=== PATIENT | male | born 1980 | race Caucasian/White ===

== ENCOUNTER 2016-07-31 12:50 | Inpatient (IN) | payer OTHER ==
--- NOTE | 2016-07-31 13:24 | ED ---
General Adult HPI - General Chief complaint: Chest Pain Stated complaint: Abnormal labs Time Seen by Provider: 07/31/16 12:58 Source: patient, EMS, RN notes reviewed Mode of arrival: EMS Limitations: no limitations - History of Present Illness Initial comments: Chief complaint and history of present illness this is a 36-year-old male has been sent here from [facility] because of elevated labs. The patient presented to the facility because of some shortness of breath. Also reports it's difficult to walk since he developed significant edema. The patient and family have lived in several places of the past several months. Patient does have the need for hemodialysis was last done 2 days ago at [facility]. Labs at the other facility found BUN to be 78 creatinine 5.8, potassium level V.7, blood glucose 170, CO2 23, BNP over 35,000 , troponin 0.39. Hemoglobin 7.6 hematocrit 23. Chest x-ray report suggests CHF. - Related Data Allergies Allergy/AdvReac Type Severity Reaction Status Date / Time insulin lispro [From Humalog] Allergy Swelling Verified 07/31/16 12:55 tramadol Allergy Swelling Verified 07/31/16 12:55 Review of Systems ROS Statement: Those systems with pertinent positive or pertinent negative responses have been documented in the HPI. Review of systems. Patient reports he went to the other hospital because of slight shortness of breath. No chest pain. He does have peripheral edema. He needs dialysis 3 times weekly the last time was done and was 2 days ago. He reports significantly increased edema to his legs which makes it difficult to ambulate. No headache. Patient has an AV fistula left wrist; all systems reviewed Past medical problems significant for hypothyroidism, insulin-dependent diabetes mellitus, hypertension, hemodialysis, CHF, no surgeries per patient. Family history mother had colon cancer brother right kidney failure. Patient has ALLERGIES to tramadol and Humalog. He does smoke 5 cigarettes per day encouraged to stop. Denies alcohol use. ROS Other: All systems not noted in ROS Statement are negative. Past Medical History Past Medical History: Diabetes Mellitus, Hypertension, Renal Disease Additional Past Medical History / Comment(s): Dialysis T, Th, Sat History of Any Multi-Drug Resistant Organisms: None Reported Past Surgical History: Orthopedic Surgery Past Psychological History: No Psychological Hx Reported Smoking Status: Current every day smoker Past Alcohol Use History: None Reported Past Drug Use History: Marijuana General Exam - General Exam Comments Initial Comments: General: The patient is awake and alert, in no distress, and does not appear acutely ill. Transferred here from [facility] because of mildly elevated troponin, elevated BNP, peripheral edema, and hemodialysis needs. Vital signs show temperature 98.1 pulse 83 respiratory rate 18 pulse ox 98% room air blood pressure 150/87 Eye: Pupils are equal, round and reactive to light, extra-ocular movements are intact ; there is normal conjunctiva bilaterally. No signs of icterus. Ears, nose, mouth and throat: There are moist mucous membranes and no oral lesions. Neck: The neck is supple, there is no tenderness Cardiovascular: There is a regular rate and rhythm. No murmur, rub or gallop is appreciated. Respiratory: Lungs are clear to auscultation, respirations are non-labored, breath sounds are equal. No wheezes, stridor, rales, or rhonchi. Gastrointestinal: Soft, non-distended, non-tender abdomen without masses or organomegaly noted. There is no rebound or guarding present. No CVA tenderness. Bowel sounds are unremarkable. Back: There is no tenderness to palpation in the midline. There is no obvious deformity. No rashes noted. Musculoskeletal: Difficulty walking secondary to, pitting edema to the knees. Ultrasounds done and reviewed [facility] were negative for DVTs to both lower extremities just performed this morning. Neurological: CN II-XII intact, There are no obvious motor or sensory deficits. Coordination appears grossly intact. Speech is normal. Skin: Skin is warm and dry and no rashes or lesions are noted. Limitations: no limitations Course Vital Signs 07/31/16 07/31/16 07/31/16 12:52 13:30 14:00 Temperature 98.1 F Pulse Rate 83 80 82 Respiratory 18 18 18 Rate Blood Pressure 150/87 145/79 142/74 O2 Sat by Pulse 98 80 L 98 Oximetry EKG Findings - EKG Comments: EKG Findings:: EKG was done and reviewed at 1442 showing normal sinus rhythm with left atrial enlargement with nonspecific ST-T wave changes. With prolonged QT. Rate 81 when necessary was 134 QRS [address] Camacho Medical Decision Making - Medical Decision Making Medical decision-making. Patient's white count 7.2 hemoglobin 7.5 hematocrit 23.6. Glucose 288, BUN 79 creatinine 5.59 and potassium 6.3. CK is only 77 but the MB fraction is 4.53 and troponin 0.053. EKG does not show any acute ST elevation. No significant ischemic changes either. Elevated MB and troponin may be related to the patient's chronic renal problems. Chest x-ray was done and reviewed by radiologist his impression is; posterior infiltrate with small posterior pleural effusions. Correlate for pneumonia. As read by Dr. Mak. The patient be admitted to hospitalist on-call, Dr. Anderson. With consultation from Dr. Barrett health advocate. - Lab Data Result diagrams: 07/31/16 13:33 Lab Results 07/31/16 Range/Units 13:33 WBC 7.2 (3.8-10.6) k/uL RBC 2.43 L (4.30-5.90) m/uL Hgb 7.5 L (13.0-17.5) gm/dL Hct 23.6 L (39.0-53.0) % MCV 97.0 (80.0-100.0) fL MCH 30.7 (25.0-35.0) pg MCHC 31.6 (31.0-37.0) g/dL RDW 15.9 H (11.5-15.5) % Plt Count 235 (150-450) k/uL Neutrophils % 77 % Lymphocytes % 7 % Monocytes % 7 % Eosinophils % 5 % Basophils % 1 % Neutrophils # 5.5 (1.3-7.7) k/uL Lymphocytes # 0.5 L (1.0-4.8) k/uL Monocytes # 0.5 (0-1.0) k/uL Eosinophils # 0.3 (0-0.7) k/uL Basophils # 0.1 (0-0.2) k/uL Macrocytosis Slight Disposition Clinical Impression: Chronic kidney disease with end stage renal failure on dialysis, Elevated troponin Disposition: ADMITTED IP TO THIS HOSP Condition: Serious Referrals: Adal Donis [Primary Care Provider] - 1-2 days
[2016-07-31 13:44] LABS: Basophils # (A) 0.1 k/uL (0-0.2); Basophils % (A) 1 %; CH 30.8; CHCM 31.9; Eosinophils # (A) 0.3 k/uL (0-0.7); Eosinophils % (A) 5 %; HCT 23.6 % (39.0-53.0); HDW 2.43; HGB 7.5 gm/dL (13.0-17.5); Luc # (Auto) 0.23; Luc % (Auto) 3; Lymphocytes # (A) 0.5 k/uL (1.0-4.8); Lymphocytes % (A) 7 %; MCH 30.7 pg (25.0-35.0); MCHC 31.6 g/dL (31.0-37.0); Macrocytosis Slight; Mean Platelet Volume 7.4; Monocytes # (A) 0.5 k/uL (0-1.0); Monocytes % (A) 7 %; Neutrophils # (A) 5.5 k/uL (1.3-7.7); Neutrophils % (A) 77 %; RBC 2.43 m/uL (4.30-5.90); RDW 15.9 % (11.5-15.5); WBC 7.2 k/uL (3.8-10.6); WBC (Perox) 7.22
[2016-07-31 13:58] LABS: Calcium 8.1 mg/dL (8.4-10.2); Total Bilirubin 0.7 mg/dL (0.2-1.3); Total Protein 5.3 g/dL (6.3-8.2)
--- NOTE | 2016-07-31 14:07 | XR ---
EXAMINATION TYPE: XR chest 2V DATE OF EXAM: 07/31/2016 1:53 PM COMPARISON: NONE INDICATION: Pain TECHNIQUE: Single frontal view of the chest is obtained. FINDINGS: The heart size is normal. The pulmonary vasculature is normal. There is a retrocardiac infiltrate. Small posterior pleural fluid collection appears to be present, l ikely on the left IMPRESSION: 1. Posterior infiltrate with small posterior pleural effusion. Correlate for pneumonia.
[2016-07-31 14:37] LABS: Potassium 6.3 mmol/L (3.5-5.1)
[2016-07-31 14:49] LABS: Creatine Kinase MB 4.3 ng/mL (0.0-2.4); Troponin I 0.053 ng/mL (0.000-0.034)
[2016-07-31] MEDS ORDERED: NALOXONE 0.4 MG/ML 1 ML VIAL IV PRN (15:00)
[2016-07-31] MEDS ORDERED: SODIUM CHLORIDE 0.9% 1,000 ML IV SCH (15:00)
[2016-07-31] MEDS ORDERED: cefTRIAXone 1,000 MG in SODIUM CHLORIDE 0.9% 100 ML IVPB SCH (15:45)
[2016-07-31] MEDS ORDERED: AZITHROMYCIN 500 MG in SODIUM CHLORIDE 0.9% 250 ML IVPB SCH (16:45)
[2016-07-31] MEDS ORDERED: ALBUTEROL NEBULIZED 2.5 MG/3 ML INHALATION PRN (17:03)
[2016-07-31] MEDS ORDERED: BUMETANIDE 0.25 MG/ML 4 ML VIAL IVP STA (17:05)
[2016-07-31] MEDS ORDERED: INSULIN REGULAR 100 UNIT/ML VIAL IV ONE ×2 (17:09→21:30)
[2016-07-31 17:19] LABS: Glucose,Whole Blood 393 mg/dL (75-99)
[2016-07-31] MEDS: CARVEDILOL 12.5 MG TAB PO SCH (17:23)
[2016-07-31] MEDS ORDERED: INSULIN REGULAR 100 UNIT/ML VIAL SQ SCH (17:30)
--- NOTE | 2016-07-31 18:40 | US ---
EXAMINATION TYPE: US scrotum with doppler. Grayscale and color Doppler Duplex imaging performed of lynn fink scrotum. DATE OF EXAM: 07/31/2016 6:14 PM COMPARISON: NONE CLINICAL HISTORY: varicocele. Bilateral swelling in pain x 3 days. Patient states no injury. EXAM MEASUREMENTS: TESTICLES: Right Testicle: 2.9 x 2.3 x 2.3 cm Left Testicle: 2.8 x 2.2 x 2.1 cm EPIDIDYMIS HEAD: Right Epididymis: 1.5 x 1.1 x 1.0 cm Left Epididymis: 1.1 x 0.8 x 0.8 cm Doppler performed to assess for testicular vascularity; good bilateral color flow and waveforms are s een. There is no evidence of testicular torsion. Presence of hydroceles: no Presence of varicoceles: no No masses or lesions seen. Thickening seen surrounding both scrotal sacs. IMPRESSION: 1. Scrotal edema. 2. No Testicular torsion
[2016-07-31 20:25] LABS: Creatine Kinase MB 4.8 ng/mL (0.0-2.4); Troponin I 0.042 ng/mL (0.000-0.034)
[2016-07-31] MEDS ORDERED: INSULIN GLARGINE 100 UNIT/ML 10 ML VIAL SQ SCH ×2 (21:00)
[2016-07-31 21:11] LABS: Glucose,Whole Blood 470 mg/dL (75-99)
[2016-07-31] MEDS ORDERED: SODIUM POLYSTYRENE SULFONATE 15 GM/60 ML BOTTLE PO STA (21:17)
--- NOTE | 2016-07-31 21:23 | HP ---
DATE OF ADMISSION: 07/31/2016 This is a 36-year-old gentleman who is admitted to the hospital with complaints of progressive increasing swelling in his lower extremities and dyspnea over the last 2 to 3 days. Patient states that he has been on hemodialysis over the last year, and the reason for his end-stage renal disease is secondary to diabetes. Patient has been a type I diabetic for a long period of time. Patient apparently was in the [facility] where he used to receive dialysis Wednesday, Wednesday, Wednesday; underwent dialysis on Wednesday; states that he has been compliant. Today patient comes into the hospital with complaints of lower extremity edema, scrotal edema and difficulty in breathing. Patient's blood pressure initially was slightly elevated. At the time of my evaluation, patient was seen on the selective floor. States that his breathing is slightly improved. Denies having any headaches, blurry vision, fevers, chills, abdominal pain. Of note, patient also states that he was recently admitted to another facility and discharged a week ago for some concern about a scrotal infection, the other facility being [facility]. Patient was noted to have abnormal labs in the physical findings. Patient was admitted to the hospital. EKG did not reveal any abnormalities. There is a troponin leak that is noted. Patient denies having any chest pain. Chest x-ray does reveal pulmonary vascular congestion. ALLERGIES include: 1. INSULIN LISPRO. 2. TRAMADOL. REVIEW OF SYSTEMS: Fourteen-point review of system was done; none pertinent other than what was mentioned above. Past medical history includes: 1. Diabetes mellitus, type 1. 2. Hypertension. 3. ESRD. 4. Anemia of ESRD. Surgical history includes a fistula placement on the left wrist. SOCIAL HISTORY: Ongoing tobacco use. Social use of marijuana. No significant alcohol use is reported. Patient recently moved into the [facility] 2 days ago. FAMILY HISTORY: Denies any premature heart disease or strokes. Patient's home medications include: 1. Hydralazine. 2. Clonidine. 3. Norvasc. 4. Incruse Ellipta. 5. Zantac. 6. Minoxidil. 7. Cozaar 8. Synthroid. 9. Levaquin, which he was on for the scrotal infection. 10. Imdur. 11. Lantus. 12. [place]. 13. Feosol. 14. Coreg. 15. Bumex. 16. Aspirin. 17. Ventolin. Appropriate doses were reviewed and reconciled on admission. PHYSICAL EXAMINATION TODAY: VITAL SIGNS: Temperature 97.9, heart rate 83, respiratory rate 18, blood pressure 134/75. Saturating 98% on 2 L supplemental oxygen. GENERAL: Appears alert and oriented x3. Does not appear to be in respiratory distress. Neck is supple. No JVD. LUNGS: Crackles at the bases. Air movement is appreciated. No rhonchi or wheezing. HEART: S1, S2. Regular rate and rhythm. No murmurs appreciated. ABDOMEN: Soft, nontender. No organomegaly. EXTREMITIES: A palpable thrill on the left wrist consistent with AV fistula. GENITOURINARY: There is scrotal swelling, tender to palpation. LOWER EXTREMITIES: Two plus pitting edema noted. Cremasteric reflex was equivocal. NEURO: No focal motor or sensory deficits noted. Laboratory data include hemoglobin 7.5, hematocrit 23.6, white count 7.2, platelets 235. Sodium 129, potassium 6.3, chloride 96, bicarb 19. BUN 79, creatinine 5.59. Random glucose 393. Troponin peak of 0.053. Albumin ( ) 2.6. BNP of 94,800. ASSESSMENT AND PLAN: 1. Acute hypoxic respiratory failure secondary to fluid-overloaded state in a patient with end-stage renal disease. 2. Anemia of end-stage renal disease. 3. Scrotal cellulitis. 4. End-stage renal disease, on hemodialysis. 5. Hyponatremia, likely hypervolemic. 6. Hyperkalemia secondary to above. 7. [id number] metabolic acidosis. 8. Indeterminate troponin leak, likely due to the above-stated condition. EKG appears to be within normal limits. 9. Diabetes mellitus, type 1, poorly controlled. 10. Hypertension. PLAN: Medications were reconciled. Continue with current care. Patient will be given 2 mg IV Bumex. Will start the patient on Rocephin and Zithromax. On chest x-ray review, he does appear to have a retrocardiac infiltrate, which could also account for some difficulty in breathing. Patient's admitting complaints are vague, as the edema appears to be chronic, and clinical findings are not significantly convinced for just CHF at this time. White count is not elevated, which is likely secondary to patient being on Levaquin for his scrotal cellulitis as well. Patient will be started on DVT prophylaxis. Nephrology consultation will be obtained. Continue basal insulin at 18 units and regular insulin 10 t.i.d. with meals. A 10-unit IV push will also be given with the current hyperglycemic episode as well. Diabetic diet will be initiated. Will follow up.
[2016-07-31] MEDS: FAMOTIDINE 20 MG TAB PO SCH (22:20)
[2016-07-31] MEDS: HEPARIN SODIUM,PORCINE 5,000 UNIT/ML 1 ML VIAL SQ SCH (22:20)
[2016-07-31] MEDS: MINOXIDIL 2.5 MG TAB PO SCH (22:20)
[2016-07-31] MEDS: AZITHROMYCIN 250 MG TAB PO SCH (22:20)
[2016-07-31] MEDS: cloNIDine HCL 0.1 MG TAB PO SCH (22:21)
[2016-07-31 23:36] LABS: Glucose,Whole Blood 480 mg/dL (75-99)
[2016-07-31] MEDS ORDERED: INSULIN REGULAR BOLUS (FROM DRIP BAG) IV ONE (23:43)
[2016-07-31] MEDS ORDERED: INSULIN REGULAR 100 UNIT in SODIUM CHLORIDE 0.9% 100 ML IV SCH (23:45)
[2016-08-01] MEDS: HEPARIN SODIUM,PORCINE 5,000 UNIT/ML 1 ML VIAL SQ SCH ×4 (00:37→23:34)
[2016-08-01 01:08] LABS: Glucose,Whole Blood 422 mg/dL (75-99)
[2016-08-01 01:32] LABS: Glucose,Whole Blood 390 mg/dL (75-99)
[2016-08-01 02:04] LABS: Glucose,Whole Blood 336 mg/dL (75-99)
[2016-08-01 02:10] LABS: Creatine Kinase MB 5.4 ng/mL (0.0-2.4); Troponin I 0.037 ng/mL (0.000-0.034)
[2016-08-01 02:38] LABS: Glucose,Whole Blood 290 mg/dL (75-99)
[2016-08-01 03:10] LABS: Glucose,Whole Blood 256 mg/dL (75-99)
[2016-08-01 03:31] LABS: Glucose,Whole Blood 227 mg/dL (75-99)
[2016-08-01 06:00] LABS: Glucose,Whole Blood 69 mg/dL (75-99)
[2016-08-01 06:33] LABS: Glucose,Whole Blood 56 mg/dL (75-99)
[2016-08-01] MEDS ORDERED: DEXTROSE 50%-WATER 50 ML SYRINGE IVP ONE (06:55)
[2016-08-01] MEDS ORDERED: DEXTROSE 50%-WATER 50 ML SYRINGE IVP STA (06:56)
[2016-08-01] MEDS: CARVEDILOL 12.5 MG TAB PO SCH ×2 (06:57→21:55)
[2016-08-01] MEDS: LEVOTHYROXINE 75 MCG TAB PO SCH (06:58)
[2016-08-01 07:04] LABS: Glucose,Whole Blood 67 mg/dL (75-99)
[2016-08-01] MEDS ORDERED: MORPHINE SULFATE 2 MG/ML SYRINGE IVP PRN (07:05)
[2016-08-01 07:09] LABS: Basophils # (A) 0.1 k/uL (0-0.2); Basophils % (A) 1 %; CHCM 33.5; Eosinophils # (A) 0.3 k/uL (0-0.7); Eosinophils % (A) 4 %; HCT 22.8 % (39.0-53.0); HDW 2.53; HGB 7.7 gm/dL (13.0-17.5); Luc # (Auto) 0.29; Luc % (Auto) 4; Lymphocytes % (A) 15 %; MCH 31.2 pg (25.0-35.0); MCHC 33.5 g/dL (31.0-37.0); MCV 92.9 fL (80.0-100.0); Mean Platelet Volume 7.2; Monocytes # (A) 0.9 k/uL (0-1.0); Monocytes % (A) 13 %; Neutrophils # (A) 4.2 k/uL (1.3-7.7); Neutrophils % (A) 63 %; RBC 2.46 m/uL (4.30-5.90); RDW 15.8 % (11.5-15.5); WBC 6.7 k/uL (3.8-10.6); WBC (Perox) 6.83
[2016-08-01 07:31] LABS: Glucose,Whole Blood 107 mg/dL (75-99)
[2016-08-01 08:00] LABS: Manual Review Performed
[2016-08-01 08:06] LABS: Glucose,Whole Blood 81 mg/dL (75-99)
[2016-08-01 08:21] LABS: Calcium 8.2 mg/dL (8.4-10.2); Magnesium 1.7 mg/dL (1.6-2.3); Phosphorous 6.5 mg/dL (2.5-4.5); Potassium 5.1 mmol/L (3.5-5.1); Total Bilirubin 0.5 mg/dL (0.2-1.3); Total Protein 5.8 g/dL (6.3-8.2)
[2016-08-01 08:23] LABS: Creatine Kinase MB 6.1 ng/mL (0.0-2.4)
[2016-08-01 08:24] LABS: Troponin I 0.055 ng/mL (0.000-0.034)
[2016-08-01] MEDS ORDERED: PANTOPRAZOLE 40 MG/10 ML VIAL IV SCH (09:00)
[2016-08-01] MEDS ORDERED: DARBEPOETIN ALFA 40 MCG/0.4 ML SYRINGE SQ SCH (09:00)
--- NOTE | 2016-08-01 09:03 | P.NPCON ---
History of Present Illness - Reason for Consult end stage renal disease - History of Present Illness Reason for consultation: End-stage renal disease History of present illness: Patient is a 36-year-old male seen in renal consultation for end- stage renal disease. He was maintained on hemodialysis on a Wednesday schedule in [place] and his last treatment was on Wednesday. He has left upper extremity AV fistula. Etiology of his kidney disease is diabetic kidney disease. Patient states he recently moved to [place] and needs to be maintained on dialysis in the area. He presented to the hospital with dyspnea as well as elevated troponins. His chest x-ray was suggestive of posterior infiltrate as well as a posterior pleural effusion. He is currently maintained on antibiotics. He denies any cough or fever. No vomiting or diarrhea. Denies chest pain. He does admit to edema in his lower extremities which is causing difficulty with ambulation as well. No other complaints at this time. Vital signs are stable. General: The patient appeared well nourished and normally developed. HEENT: Head exam is unremarkable. Neck is without jugular venous distension. LUNGS: Lungs are clear to auscultation and percussion. Breath sounds decreased. HEART: Rate and Rhythm are regular. First and second heart sounds normal. No murmurs, rubs or gallops. ABDOMEN: Abdominal exam reveals normal bowel sounds. Non-tender and non- distended. No evidence of peritonitis. EXTREMITITES: 1+ edema. Past Medical History Past Medical History: COPD, Diabetes Mellitus, GERD/Reflux, Hypertension, Renal Disease, Thyroid Disorder Additional Past Medical History / Comment(s): Dialysis T, Th, Sat, TAKES IRON SUPPLEMENTS ", "ENLARGED HEART VALVE","MURMUR", SWOLLEN TESTICLES History of Any Multi-Drug Resistant Organisms: None Reported Past Surgical History: Orthopedic Surgery Additional Past Surgical History / Comment(s): LT WRIST FISTULA Past Anesthesia/Blood Transfusion Reactions: No Reported Reaction Additional Past Anesthesia/Blood Transfusion Reaction / Comment(s): PAT BLOOD TRANSFUSION-NO REACTION Past Psychological History: No Psychological Hx Reported Additional Psychological History / Comment(s): PT STATED JUST MOVED HERE FROM [facility] YESTERDAY.DOES'NT HAVE A PCP ESTABLISHED YET. LIVING WITH HIS SISTER AND 2 BROTHERS, 5 CATS IN A SINGLE LEVEL HOME THAT HAS 2 STEPS. HAS A 4 WHEELED WALKER AND A NEBULIZER. Smoking Status: Current every day smoker Past Alcohol Use History: None Reported Additional Past Alcohol Use History / Comment(s): STARTED SMOKING AT AGE 20- SMOKES 5 CIG PER DAY. ALSO SMOKES MARIJUANA-USED THIS AM. Past Drug Use History: Marijuana - Past Family History Mother Family Medical History: Cancer Additional Family Medical History / Comment(s): COLON CANCER Brother(s) Family Medical History: Diabetes Mellitus Father Family Medical History: Diabetes Mellitus, Hyperlipidemia, Hypertension Additional Family Medical History / Comment(s): CADIAC PROBLEMS AND HAD A CARDIO PULMONARY ARREST Medications and Allergies Home Medications Medication Instructions Recorded Confirmed Type Albuterol Nebulized [Ventolin 2.5 mg INHALATION RT-QID PRN 07/31/16 07/31/16 History Nebulized] Aspirin EC [Ecotrin Low Dose] 81 mg PO DAILY 07/31/16 07/31/16 History Bumetanide [BUMEX] 2 mg PO BID 07/31/16 07/31/16 History Carvedilol [Coreg] 25 mg PO BID 07/31/16 07/31/16 History Ferrous Sulfate [Feosol] 325 mg PO BID 07/31/16 07/31/16 History HYDROcodone/APAP 5-325MG [[place] 1 tab PO TID PRN 07/31/16 07/31/16 History 5-325] Insulin Glargine [Lantus] 18 unit SQ HS 07/31/16 07/31/16 History Isosorbide Mononitrate ER [Imdur] 60 mg PO DAILY 07/31/16 07/31/16 History Levofloxacin [Levaquin] 500 mg PO DAILY 07/31/16 07/31/16 History Levothyroxine Sodium [Synthroid] 75 mcg PO DAILY 07/31/16 07/31/16 History Losartan Potassium [Cozaar] 100 mg PO DAILY 07/31/16 07/31/16 History Minoxidil 5 mg PO BID 07/31/16 07/31/16 History Ranitidine HCl [Zantac] 150 mg PO HS 07/31/16 07/31/16 History Umeclidinium [place] [Incruse 1 puff INHALATION RT-DAILY 07/31/16 07/31/16 History Ellipta] amLODIPine [Norvasc] 10 mg PO DAILY 07/31/16 07/31/16 History cloNIDine HCL 0.3 mg PO TID 07/31/16 07/31/16 History hydrALAZINE HCL [Apresoline] 100 mg PO TID 07/31/16 07/31/16 History Allergies Allergy/AdvReac Type Severity Reaction Status Date / Time insulin lispro [From Humalog] Allergy Swelling Verified 07/31/16 16:08 latex Allergy Rash/Hives Verified 07/31/16 16:08 tramadol AdvReac Nausea & Verified 07/31/16 16:08 Vomiting Physical Exam Vitals: Vital Signs Temp Pulse Pulse Resp BP BP Pulse Ox 08/01/16 04:00 97.7 F 82 18 164/98 98 08/01/16 00:00 96.8 F L 86 18 133/63 96 07/31/16 20:00 98.5 F 89 18 176/96 98 07/31/16 16:40 96.7 F L 88 18 154/82 98 07/31/16 16:28 97.9 F 83 18 134/75 98 07/31/16 15:00 82 18 141/76 98 07/31/16 14:00 82 18 142/74 98 07/31/16 13:30 80 18 145/79 97 07/31/16 12:52 98.1 F 83 18 150/87 98 Intake and Output 07/31/16 08/01/16 08/01/16 22:59 06:59 14:59 Intake Total 180 83.713 Output Total 550 Balance 180 -466.287 Intake: Intake, IV Titration 83.713 Amount Insulin Regular 100 unit 83.713 In Sodium Chloride 0.9% 100 ml @ Titrate IV .Q0M ON LICENSE OF [facility] Rx#:[id number] Oral 180 Output: Urine 550 Other: Voiding Method Urinal Urinal Weight 92 kg 102.5 kg Results - Lab Results Most recent lab results Calcium 8.2 mg/dL (8.4-10.2) L 08/01/16 06:13 Phosphorus 6.5 mg/dL (2.5-4.5) H 08/01/16 06:13 Magnesium 1.7 mg/dL (1.6-2.3) 08/01/16 06:13 08/01/16 06:13 08/01/16 06:13 Assessment and Plan Plan: Assessment: #1. End-stage renal disease maintained on hemodialysis on a Wednesday schedule but states he has transitioned over to Wednesday schedule. He has a left upper extremity AV fistula. Last treatment was on Wednesday. #2. Volume overload. #3. Questionable pneumonia. #4. Insulin-dependent diabetes mellitus. #5. Anemia of chronic kidney disease. Rule out iron deficiency. #6. Hypertension with chronic kidney disease. Controlled. Plan: Hemodialysis today with goal 3-4 L ultrafiltration as tolerated. Check iron studies. Start Aranesp. Check phosphorus level. Continue with antibiotics for now. clerical manager on board to help facilitate outpatient hemodialysis near [place]. Thank you for the consultation. I will continue to follow the patient with you during his hospital stay.
[2016-08-01 09:12] LABS: Glucose,Whole Blood 109 mg/dL (75-99)
[2016-08-01 10:02] LABS: Glucose,Whole Blood 111 mg/dL (75-99)
[2016-08-01 10:15] LABS: Hemoglobin A1C 7.3 % (4.2-6.1)
[2016-08-01 11:03] LABS: Glucose,Whole Blood 117 mg/dL (75-99)
[2016-08-01] MEDS: ASPIRIN 81 MG CHEW PO SCH (11:22)
[2016-08-01] MEDS: BUMETANIDE 1 MG TAB PO SCH ×2 (11:22→17:12)
[2016-08-01] MEDS: cloNIDine HCL 0.1 MG TAB PO SCH ×3 (11:56→23:34)
[2016-08-01 12:11] LABS: % Iron Saturation 15.5 % (20-50)
--- NOTE | 2016-08-01 16:12 | P.PN ---
Subjective This is a 36-year-old gentleman who is admitted to the hospital with complaints of progressive increasing swelling in his lower extremities and dyspnea over the last 2 to 3 days. Patient states that he has been on hemodialysis over the last year, and the reason for his end-stage renal disease is secondary to diabetes. Patient has been a type I diabetic for a long period of time. Patient apparently was in the [place] area where he used to receive dialysis Wednesday, Wednesday, Wednesday; underwent dialysis on Wednesday; states that he has been compliant. Today patient comes into the hospital with complaints of lower extremity edema, scrotal edema and difficulty in breathing. Patient's blood pressure initially was slightly elevated. At the time of my evaluation, patient was seen on the selective floor. States that his breathing is slightly improved. Denies having any headaches, blurry vision, fevers, chills, abdominal pain. Of note, patient also states that he was recently admitted to another facility and discharged a week ago for some concern about a scrotal infection, the other facility being [facility]. Patient was noted to have abnormal labs in the physical findings. Patient was admitted to the hospital. EKG did not reveal any abnormalities. There is a troponin leak that is noted. Patient denies having any chest pain. Chest x-ray does reveal pulmonary vascular congestion. 08/01/2016 States his breathing is slightly improved continues to have edema per graph and scrotal swelling No fevers chills nausea vomiting or diarrhea reported today Objective - Vital Signs Vital signs: Vital Signs Temp 97.8 F 08/01/16 08:00 Pulse 74 08/01/16 12:00 Resp 18 08/01/16 12:00 BP 160/80 08/01/16 12:00 Pulse Ox 99 08/01/16 12:00 Intake & Output 07/31/16 08/01/16 08/01/16 18:59 06:59 18:59 Intake Total 263.713 810 Output Total 550 Balance -286.287 810 Weight 92 kg 102.5 kg Intake: Intake, IV Titration 83.713 690 Amount Insulin Regular 100 unit 83.713 In Sodium Chloride 0.9% 100 ml @ Titrate IV .Q0M [facility] Rx#:[id number] Sodium Chloride 0.9% 1, 640 000 ml @ 80 mls/hr IV . [id number] [facility] Rx#:[id number] cefTRIAXone 1,000 mg In 50 Sodium Chloride 0.9% 50 ml @ 100 mls/hr IVPB Q24HR [facility] Rx#:[id number] Oral 180 120 Output: Urine 550 Other: Voiding Method Urinal Urinal # Voids 1 - Exam Physical exam Gen. appearance oriented 3 in no distress Neck is supple no JVD Lungs good air entry clear to auscultation no rhonchi or wheezing Heart S1-S2 heard regular rate and rhythm no murmurs appreciated Abdomen is soft nontender no organomegaly bowel sounds are intact Neurologically cranial nerves II-12 grossly intact no focal motor or sensory deficits noted Lower extremities 1+ pitting edema Scrotal edema is noted Left upper extremity palpable thrill over the left wrist Skin no abnormalities appreciated - Labs CBC & Chem 7: 08/01/16 06:13 08/01/16 06:13 Labs: Abnormal Lab Results - Last 24 Hours (Table) 07/31/16 07/31/16 07/31/16 Range/Units 16:57 19:42 21:10 RBC (4.30-5.90) m/uL Hgb (13.0-17.5) gm/dL Hct (39.0-53.0) % RDW (11.5-15.5) % Sodium (137-145) mmol/L Chloride (98-107) mmol/L Carbon Dioxide (22-30) mmol/L BUN (9-20) mg/dL Creatinine (0.66-1.25) mg/dL Glucose (74-99) mg/dL POC Glucose (mg/dL) 393 H 470 H (75-99) mg/dL Hemoglobin A1c (4.2-6.1) % Calcium (8.4-10.2) mg/dL Phosphorus (2.5-4.5) mg/dL Iron (49-181) ug/dL TIBC (261-462) ug/dL % Saturation (20-50) % Alkaline Phosphatase (38-126) U/L CK-MB (CK-2) 4.8 H* (0.0-2.4) ng/mL Troponin I 0.042 H* (0.000-0.034) ng/mL Total Protein (6.3-8.2) g/dL Albumin (3.5-5.0) g/dL 07/31/16 08/01/16 08/01/16 Range/Units 23:35 01:06 01:06 RBC (4.30-5.90) m/uL Hgb (13.0-17.5) gm/dL Hct (39.0-53.0) % RDW (11.5-15.5) % Sodium (137-145) mmol/L Chloride (98-107) mmol/L Carbon Dioxide (22-30) mmol/L BUN (9-20) mg/dL Creatinine (0.66-1.25) mg/dL Glucose (74-99) mg/dL POC Glucose (mg/dL) 480 H (75-99) mg/dL Hemoglobin A1c 7.3 H (4.2-6.1) % Calcium (8.4-10.2) mg/dL Phosphorus (2.5-4.5) mg/dL Iron (49-181) ug/dL TIBC (261-462) ug/dL % Saturation (20-50) % Alkaline Phosphatase (38-126) U/L CK-MB (CK-2) 5.4 H* (0.0-2.4) ng/mL Troponin I 0.037 H* (0.000-0.034) ng/mL Total Protein (6.3-8.2) g/dL Albumin (3.5-5.0) g/dL 08/01/16 08/01/16 08/01/16 Range/Units 01:07 01:30 02:02 RBC (4.30-5.90) m/uL Hgb (13.0-17.5) gm/dL Hct (39.0-53.0) % RDW (11.5-15.5) % Sodium (137-145) mmol/L Chloride (98-107) mmol/L Carbon Dioxide (22-30) mmol/L BUN (9-20) mg/dL Creatinine (0.66-1.25) mg/dL Glucose (74-99) mg/dL POC Glucose (mg/dL) 422 H 390 H 336 H (75-99) mg/dL Hemoglobin A1c (4.2-6.1) % Calcium (8.4-10.2) mg/dL Phosphorus (2.5-4.5) mg/dL Iron (49-181) ug/dL TIBC (261-462) ug/dL % Saturation (20-50) % Alkaline Phosphatase (38-126) U/L CK-MB (CK-2) (0.0-2.4) ng/mL Troponin I (0.000-0.034) ng/mL Total Protein (6.3-8.2) g/dL Albumin (3.5-5.0) g/dL 08/01/16 08/01/16 08/01/16 Range/Units 02:37 03:08 03:30 RBC (4.30-5.90) m/uL Hgb (13.0-17.5) gm/dL Hct (39.0-53.0) % RDW (11.5-15.5) % Sodium (137-145) mmol/L Chloride (98-107) mmol/L Carbon Dioxide (22-30) mmol/L BUN (9-20) mg/dL Creatinine (0.66-1.25) mg/dL Glucose (74-99) mg/dL POC Glucose (mg/dL) 290 H 256 H 227 H (75-99) mg/dL Hemoglobin A1c (4.2-6.1) % Calcium (8.4-10.2) mg/dL Phosphorus (2.5-4.5) mg/dL Iron (49-181) ug/dL TIBC (261-462) ug/dL % Saturation (20-50) % Alkaline Phosphatase (38-126) U/L CK-MB (CK-2) (0.0-2.4) ng/mL Troponin I (0.000-0.034) ng/mL Total Protein (6.3-8.2) g/dL Albumin (3.5-5.0) g/dL 08/01/16 08/01/16 08/01/16 Range/Units 06:00 06:13 06:13 RBC 2.46 L (4.30-5.90) m/uL Hgb 7.7 L (13.0-17.5) gm/dL Hct 22.8 L (39.0-53.0) % RDW 15.8 H (11.5-15.5) % Sodium 130 L (137-145) mmol/L Chloride 94 L (98-107) mmol/L Carbon Dioxide 21 L (22-30) mmol/L BUN 86 H* (9-20) mg/dL Creatinine 6.19 H* (0.66-1.25) mg/dL Glucose 51 L (74-99) mg/dL POC Glucose (mg/dL) 69 L (75-99) mg/dL Hemoglobin A1c (4.2-6.1) % Calcium 8.2 L (8.4-10.2) mg/dL Phosphorus 6.5 H (2.5-4.5) mg/dL Iron 36 L (49-181) ug/dL TIBC 233 L (261-462) ug/dL % Saturation 15.5 L (20-50) % Alkaline Phosphatase 170 H (38-126) U/L CK-MB (CK-2) (0.0-2.4) ng/mL Troponin I (0.000-0.034) ng/mL Total Protein 5.8 L (6.3-8.2) g/dL Albumin 2.9 L (3.5-5.0) g/dL 08/01/16 08/01/16 08/01/16 Range/Units 06:13 06:32 06:53 RBC (4.30-5.90) m/uL Hgb (13.0-17.5) gm/dL Hct (39.0-53.0) % RDW (11.5-15.5) % Sodium (137-145) mmol/L Chloride (98-107) mmol/L Carbon Dioxide (22-30) mmol/L BUN (9-20) mg/dL Creatinine (0.66-1.25) mg/dL Glucose (74-99) mg/dL POC Glucose (mg/dL) 56 L 67 L (75-99) mg/dL Hemoglobin A1c (4.2-6.1) % Calcium (8.4-10.2) mg/dL Phosphorus (2.5-4.5) mg/dL Iron (49-181) ug/dL TIBC (261-462) ug/dL % Saturation (20-50) % Alkaline Phosphatase (38-126) U/L CK-MB (CK-2) 6.1 H* (0.0-2.4) ng/mL Troponin I 0.055 H* (0.000-0.034) ng/mL Total Protein (6.3-8.2) g/dL Albumin (3.5-5.0) g/dL 08/01/16 08/01/16 08/01/16 Range/Units 07:19 09:00 10:00 RBC (4.30-5.90) m/uL Hgb (13.0-17.5) gm/dL Hct (39.0-53.0) % RDW (11.5-15.5) % Sodium (137-145) mmol/L Chloride (98-107) mmol/L Carbon Dioxide (22-30) mmol/L BUN (9-20) mg/dL Creatinine (0.66-1.25) mg/dL Glucose (74-99) mg/dL POC Glucose (mg/dL) 107 H 109 H 111 H (75-99) mg/dL Hemoglobin A1c (4.2-6.1) % Calcium (8.4-10.2) mg/dL Phosphorus (2.5-4.5) mg/dL Iron (49-181) ug/dL TIBC (261-462) ug/dL % Saturation (20-50) % Alkaline Phosphatase (38-126) U/L CK-MB (CK-2) (0.0-2.4) ng/mL Troponin I (0.000-0.034) ng/mL Total Protein (6.3-8.2) g/dL Albumin (3.5-5.0) g/dL 08/01/16 Range/Units 11:01 RBC (4.30-5.90) m/uL Hgb (13.0-17.5) gm/dL Hct (39.0-53.0) % RDW (11.5-15.5) % Sodium (137-145) mmol/L Chloride (98-107) mmol/L Carbon Dioxide (22-30) mmol/L BUN (9-20) mg/dL Creatinine (0.66-1.25) mg/dL Glucose (74-99) mg/dL POC Glucose (mg/dL) 117 H (75-99) mg/dL Hemoglobin A1c (4.2-6.1) % Calcium (8.4-10.2) mg/dL Phosphorus (2.5-4.5) mg/dL Iron (49-181) ug/dL TIBC (261-462) ug/dL % Saturation (20-50) % Alkaline Phosphatase (38-126) U/L CK-MB (CK-2) (0.0-2.4) ng/mL Troponin I (0.000-0.034) ng/mL Total Protein (6.3-8.2) g/dL Albumin (3.5-5.0) g/dL Assessment and Plan Plan: #1 acute hypoxic respiratory failure secondary to fluid overload state in a patient with ESRD graft #2 anemia of ESRD #3 scrotal cellulitis #4 pneumonia that is community acquired #5 non-anion gap metabolic acidosis #6 indeterminant troponin leak likely due to above #7 diabetes most type I poorly controlled with episodes of hyperglycemia was on insulin drip overnight #8 hypertension Plan Continue ongoing care Dialysis per nephrology His reports and is initiated Blood pressures are stable Titrated of insulin drip will start the patient 25 units of basal 10 3 times a day of regular DVT prophylaxis
[2016-08-01 16:31] LABS: Glucose,Whole Blood 125 mg/dL (75-99)
[2016-08-01] MEDS: MINOXIDIL 2.5 MG TAB PO SCH ×2 (17:04→21:55)
[2016-08-01] MEDS: INSULIN REGULAR 100 UNIT/ML VIAL SQ SCH (17:13)
[2016-08-01 19:02] LABS: Hepatitis B Surface Ag Index 0.06
[2016-08-01 19:03] LABS: Hepatitis B Surface Antibody Negative (Negative)
[2016-08-01] MEDS ORDERED: GELATIN SPONGE,ABSORB (SMALL) 1 EACH SPONGE ONE (20:30)
[2016-08-01] MEDS: TIOTROPIUM 18 MCG/PUFF INHALER INHALATION SCH (20:55)
[2016-08-01 21:09] LABS: Glucose,Whole Blood 168 mg/dL (75-99)
[2016-08-01] MEDS: amLODIPine 10 MG TAB PO SCH (21:52)
[2016-08-01] MEDS: AZITHROMYCIN 250 MG TAB PO SCH (21:55)
[2016-08-01] MEDS: FAMOTIDINE 20 MG TAB PO SCH (21:55)
[2016-08-01] MEDS: INSULIN GLARGINE 100 UNIT/ML 10 ML VIAL SQ SCH (22:14)
[2016-08-02 04:35] LABS: Glucose,Whole Blood 275 mg/dL (75-99)
[2016-08-02 05:50] LABS: Glucose,Whole Blood 283 mg/dL (75-99)
[2016-08-02] MEDS: CARVEDILOL 12.5 MG TAB PO SCH (06:58)
[2016-08-02] MEDS: LEVOTHYROXINE 75 MCG TAB PO SCH (06:58)
[2016-08-02] MEDS: INSULIN REGULAR 100 UNIT/ML VIAL SQ SCH ×2 (07:09→12:17)
[2016-08-02] MEDS ORDERED: PANTOPRAZOLE 40 MG TABLET PO SCH (09:00)
[2016-08-02] MEDS: cloNIDine HCL 0.1 MG TAB PO SCH (09:28)
[2016-08-02] MEDS: BUMETANIDE 1 MG TAB PO SCH (09:29)
[2016-08-02] MEDS: MINOXIDIL 2.5 MG TAB PO SCH (09:29)
[2016-08-02] MEDS: ASPIRIN 81 MG CHEW PO SCH (09:30)
[2016-08-02] MEDS: amLODIPine 10 MG TAB PO SCH (09:30)
[2016-08-02] MEDS: HEPARIN SODIUM,PORCINE 5,000 UNIT/ML 1 ML VIAL SQ SCH (09:31)
[2016-08-02] MEDS: INSULIN GLARGINE 100 UNIT/ML 10 ML VIAL SQ SCH (09:31)
--- NOTE | 2016-08-02 09:47 | P.PN ---
Subjective Patient is seen in follow-up for end-stage renal disease. He is maintained on hemodialysis on a Wednesday schedule via left upper extremity AV fistula. Patient presented with dyspnea and Lotrimin edema. He underwent hemodialysis yesterday with 3 L ultrafiltration. He is eager to go home today. Denies any chest pain or shortness of breath. No active complaints at this time. Vital signs are stable. General: The patient appeared well nourished and normally developed. HEENT: Head exam is unremarkable. Neck is without jugular venous distension. LUNGS: Lungs are clear to auscultation and percussion. Breath sounds decreased. HEART: Rate and Rhythm are regular. First and second heart sounds normal. No murmurs, rubs or gallops. ABDOMEN: Abdominal exam reveals normal bowel sounds. Non-tender and non- distended. No evidence of peritonitis. EXTREMITITES: Trace to 1+ edema. Objective - Vital Signs Vital signs: Vital Signs Temp 98.6 F 08/02/16 04:30 Pulse 79 08/02/16 04:30 Resp 18 08/02/16 04:30 BP 145/85 08/02/16 04:30 Pulse Ox 97 08/02/16 04:30 Intake & Output 08/01/16 08/02/16 08/02/16 18:59 06:59 18:59 Intake Total 810 360 Output Total 1050 Balance 810 -1050 360 Weight 102.5 kg Intake: Intake, IV Titration 690 Amount Sodium Chloride 0.9% 1, 640 000 ml @ 80 mls/hr IV . [id number] [facility] Rx#:[id number] cefTRIAXone 1,000 mg In 50 Sodium Chloride 0.9% 50 ml @ 100 mls/hr IVPB Q24HR [facility] Rx#:[id number] Oral 120 360 Output: Urine 1050 Other: Voiding Method Urinal Urinal # Voids 1 1 # Bowel Movements 2 - Labs CBC & Chem 7: 08/01/16 06:13 08/01/16 06:13 Labs: Abnormal Lab Results - Last 24 Hours (Table) 08/01/16 08/01/16 08/01/16 Range/Units 01:06 06:13 10:00 POC Glucose (mg/dL) 111 H (75-99) mg/dL Hemoglobin A1c 7.3 H (4.2-6.1) % Iron 36 L (49-181) ug/dL TIBC 233 L (261-462) ug/dL % Saturation 15.5 L (20-50) % 08/01/16 08/01/16 08/01/16 Range/Units 11:01 16:30 21:07 POC Glucose (mg/dL) 117 H 125 H 168 H (75-99) mg/dL Hemoglobin A1c (4.2-6.1) % Iron (49-181) ug/dL TIBC (261-462) ug/dL % Saturation (20-50) % 08/02/16 08/02/16 Range/Units 04:33 05:49 POC Glucose (mg/dL) 275 H 283 H (75-99) mg/dL Hemoglobin A1c (4.2-6.1) % Iron (49-181) ug/dL TIBC (261-462) ug/dL % Saturation (20-50) % Assessment and Plan Plan: Assessment: #1. End-stage renal disease maintained on hemodialysis on a Wednesday schedule but states he has transitioned over to Wednesday schedule. He has a left upper extremity AV fistula. Last treatment was yesterday. #2. Volume overload. Improved. #3. Questionable pneumonia. #4. Insulin-dependent diabetes mellitus. #5. Anemia of chronic kidney disease. Iron deficiency present. #6. Hypertension with chronic kidney disease. Controlled. Plan: Hemodialysis tomorrow with goal 3-4 L ultrafiltration as tolerated. Ferrlecit 125 mg IV daily for 3 days. First dose today. Maintain Aranesp. Add Renvela 800 mg 3 times daily with meals. Continue with antibiotics for now. technical project manager on board to help facilitate outpatient hemodialysis near [place]. However the patient states he will continue to get dialysis in [place] for now. If that's the case, he stable to be discharged home from nephrology standpoint.
[2016-08-02 10:13] VITALS: TEMP 98.3
[2016-08-02] MEDS ORDERED: SODIUM FERRIC GLUCONAT-SUCROSE 125 MG in SODIUM CHLORIDE 0.9% 100 ML IVPB SCH (10:30)
[2016-08-02] MEDS: TIOTROPIUM 18 MCG/PUFF INHALER INHALATION SCH (11:02)
[2016-08-02 12:01] LABS: Glucose,Whole Blood 367 mg/dL (75-99)
[2016-08-02] MEDS ORDERED: SEVELAMER 800 MG TAB PO SCH (12:30)
[2016-08-02 15:46] VITALS: BP 145/75; PULSE 76; RESP 16
--- NOTE | 2016-08-02 19:46 | P.DS ---
Providers Date of admission: 07/31/16 15:00 Attending physician: Leah Anderson Consults: 07/31/16 15:00 Consult Physician Stat Consulting Provider: Nicolle Barrett Reason/Comments: Hemodialysis Do you want consulting provider notified?: Yes Primary care physician: [facility] Course: This is a 36-year-old gentleman who is admitted to the hospital with complaints of progressive increasing swelling in his lower extremities and dyspnea over the last 2 to 3 days. Patient states that he has been on hemodialysis over the last year, and the reason for his end-stage renal disease is secondary to diabetes. Patient has been a type I diabetic for a long period of time. Patient apparently was in the [place] area where he used to receive dialysis Wednesday, Wednesday, Wednesday; underwent dialysis on Wednesday; states that he has been compliant. Today patient comes into the hospital with complaints of lower extremity edema, scrotal edema and difficulty in breathing. Patient's blood pressure initially was slightly elevated. At the time of my evaluation, patient was seen on the selective floor. States that his breathing is slightly improved. Denies having any headaches, blurry vision, fevers, chills, abdominal pain. Of note, patient also states that he was recently admitted to another facility and discharged a week ago for some concern about a scrotal infection, the other facility being [facility]. Patient was noted to have abnormal labs in the physical findings. Patient was admitted to the hospital. EKG did not reveal any abnormalities. There is a troponin leak that is noted. Patient denies having any chest pain. Chest x-ray does reveal pulmonary vascular congestion. 08/01/2016 States his breathing is slightly improved continues to have edema per graph and scrotal swelling No fevers chills nausea vomiting or diarrhea reported today Objective - Vital Signs Vital signs: Vital Signs Temp 97.8 F 08/01/16 08:00 Pulse 74 08/01/16 12:00 Resp 18 08/01/16 12:00 BP 160/80 08/01/16 12:00 Pulse Ox 99 08/01/16 12:00 Intake & Output 07/31/16 08/01/16 08/01/16 18:59 06:59 18:59 Intake Total 263.713 810 Output Total 550 Balance -286.287 810 Weight 92 kg 102.5 kg Intake: Intake, IV Titration 83.713 690 Amount Insulin Regular 100 unit 83.713 In Sodium Chloride 0.9% 100 ml @ Titrate IV .Q0M [facility] Rx#:[id number] Sodium Chloride 0.9% 1, 640 000 ml @ 80 mls/hr IV . [id number] [facility] Rx#:[id number] cefTRIAXone 1,000 mg In 50 Sodium Chloride 0.9% 50 ml @ 100 mls/hr IVPB Q24HR [facility] Rx#:[id number] Oral 180 120 Output: Urine 550 Other: Voiding Method Urinal Urinal # Voids 1 - Exam Physical exam Gen. appearance oriented 3 in no distress Neck is supple no JVD Lungs good air entry clear to auscultation no rhonchi or wheezing Heart S1-S2 heard regular rate and rhythm no murmurs appreciated Abdomen is soft nontender no organomegaly bowel sounds are intact Neurologically cranial nerves II-12 grossly intact no focal motor or sensory deficits noted Lower extremities 1+ pitting edema Scrotal edema is noted Left upper extremity palpable thrill over the left wrist Skin no abnormalities appreciated Assessment and Plan Plan: #1 acute hypoxic respiratory failure secondary to fluid overload state in a patient with ESRD #2 anemia of ESRD #3 scrotal cellulitis #4 pneumonia that is community acquired #5 non-anion gap metabolic acidosis #6 indeterminant troponin leak likely due to above #7 diabetes most type I poorly controlled #8 hypertension ESRD: pt states he will go back to [place] for HD and work with social work to change HD to [place] Complete a course of abx for pneumonia Pt will need erythropoetin analogs restart home insulin regimen Patient Condition at Discharge: Serious Plan - Discharge Summary New Discharge Prescriptions: Ferrous Sulfate [Iron (65 MG Elemental)] 325 mg PO TID #60 Levofloxacin [Levaquin] 500 mg PO DAILY #5 Discharge Medication List Albuterol Nebulized [Ventolin Nebulized] 2.5 mg INHALATION RT-QID PRN 07/31/16 [ History] Aspirin EC [Ecotrin Low Dose] 81 mg PO DAILY 07/31/16 [History] Bumetanide [BUMEX] 2 mg PO BID 07/31/16 [History] Carvedilol [Coreg] 25 mg PO BID 07/31/16 [History] HYDROcodone/APAP 5-325MG [[place] 5-325] 1 tab PO TID PRN 07/31/16 [History] Insulin Glargine [Lantus] 18 unit SQ HS 07/31/16 [History] Isosorbide Mononitrate ER [Imdur] 60 mg PO DAILY 07/31/16 [History] Levothyroxine Sodium [Synthroid] 75 mcg PO DAILY 07/31/16 [History] Losartan Potassium [Cozaar] 100 mg PO DAILY 07/31/16 [History] Minoxidil 5 mg PO BID 07/31/16 [History] Ranitidine HCl [Zantac] 150 mg PO HS 07/31/16 [History] Umeclidinium [place] [Incruse Ellipta] 1 puff INHALATION RT-DAILY 07/31/16 [ History] amLODIPine [Norvasc] 10 mg PO DAILY 07/31/16 [History] cloNIDine HCL 0.3 mg PO TID 07/31/16 [History] hydrALAZINE HCL [Apresoline] 100 mg PO TID 07/31/16 [History] Ferrous Sulfate [Iron (65 MG Elemental)] 325 mg PO TID #60 08/02/16 [Rx] Levofloxacin [Levaquin] 500 mg PO DAILY #5 08/02/16 [Rx] Follow up Appointment(s)/Referral(s): Adal Donis [Primary Care Provider] - 1-2 days (Please call office when open) Activity/Diet/Wound Care/Special Instructions: If planning to move, please contact current dialysis center and inform them so they may help find a center closer to your new location Discharge Disposition: HOME SELF-CARE
== END 2016-08-02 16:39 | disposition home or self-care (01) | DRG 640 ==
LOC: EC 12:50 → 6SEL 15:00
PROVIDERS: ADMIT Internal Medicine; ATTEND Internal Medicine
PROC: 5A1D00Z (ICD-10-PCS; principal; 2016-08-01)
DX: E87.70 Fluid overload, unspecified (principal); J18.9 Pneumonia, unspecified organism; J96.01 Acute respiratory failure with hypoxia; N18.6 End stage renal disease; J44.0 Chronic obstructive pulmonary disease with (acute) lower respiratory infection; E10.22 Type 1 diabetes mellitus with diabetic chronic kidney disease; E87.2 Acidosis; E10.65 Type 1 diabetes mellitus with hyperglycemia; E87.1 Hypo-osmolality and hyponatremia; D63.1 Anemia in chronic kidney disease; N49.2 Inflammatory disorders of scrotum; I12.9 Hypertensive chronic kidney disease with stage 1 through stage 4 chronic kidney disease, or unspecified chronic kidney disease; E87.5 Hyperkalemia; E03.9 Hypothyroidism, unspecified; F17.210 Nicotine dependence, cigarettes, uncomplicated; F12.90 Cannabis use, unspecified, uncomplicated; K21.9 Gastro-esophageal reflux disease without esophagitis; Z83.3 Family history of diabetes mellitus; Z99.2 Dependence on renal dialysis; Z79.82 Long term (current) use of aspirin; Z79.4 Long term (current) use of insulin; Z79.899 Other long term (current) drug therapy
CPT/HCPCS: 36415; 71020; 76870; 80053; 82550; 82553; 82728; 83036; 83540; 83550; 83735; 83880; 84100; 84484; 85025; 86704; 86706; 87340; 90935; 93005; 93975; 96361; 96365; 99285

== ENCOUNTER 2016-08-03 05:23 | Emergency (ER) | payer OTHER ==
[2016-08-03] MEDS ORDERED: KETOROLAC 60 MG/2 ML VIAL IVP STA (05:44)
--- NOTE | 2016-08-03 05:48 | ED ---
General Adult HPI - General Source: patient, RN notes reviewed Mode of arrival: EMS Limitations: physical limitation <Matthew Burnett - Last Filed: 08/03/16 07:08> <Alex Dimas - Last Filed: 08/03/16 11:41> - General Chief complaint: Back Pain/Injury Stated complaint: BACK PAIN Time Seen by Provider: 08/03/16 05:25 - History of Present Illness Initial comments: This is a 36-year-old male who presents emergency Department with a past medical history significant for renal failure diabetes and recently scrotal cellulitis. Patient states he was just discharged from the hospital yesterday for renal failure and scrotal cellulitis. Patient states when he was in the hospital on his last day he started to get some tailbone pain because he is unable to assess size because of swollen testicles and so the pressure lying on his tailbone his continued to bother him. Patient states the pain got worse since last evening so he decided come back in the emergency department. Patient states his testicle still swollen but no different than when he was here previously. Patient denies any fever chills or cough. Patient denies any difficulty breathing or shortness of breath per patient denies any abdominal pain patient denies nausea vomiting diarrhea. (Matthew Burnett) - Related Data Home Medications Medication Instructions Recorded Confirmed Albuterol Nebulized [Ventolin 2.5 mg INHALATION RT-QID PRN 07/31/16 08/03/16 Nebulized] Aspirin EC [Ecotrin Low Dose] 81 mg PO DAILY 07/31/16 08/03/16 Bumetanide [BUMEX] 2 mg PO BID 07/31/16 08/03/16 Carvedilol [Coreg] 25 mg PO BID 07/31/16 08/03/16 HYDROcodone/APAP 5-325MG [[place] 1 tab PO TID PRN 07/31/16 08/03/16 5-325] Insulin Glargine [Lantus] 18 unit SQ HS 07/31/16 08/03/16 Isosorbide Mononitrate ER [Imdur] 60 mg PO DAILY 07/31/16 08/03/16 Levothyroxine Sodium [Synthroid] 75 mcg PO DAILY 07/31/16 08/03/16 Losartan Potassium [Cozaar] 100 mg PO DAILY 07/31/16 08/03/16 Minoxidil 5 mg PO BID 07/31/16 08/03/16 Ranitidine HCl [Zantac] 150 mg PO HS 07/31/16 08/03/16 Umeclidinium [place] [Incruse 1 puff INHALATION RT-DAILY 07/31/16 08/03/16 Ellipta] amLODIPine [Norvasc] 10 mg PO DAILY 07/31/16 08/03/16 cloNIDine HCL 0.3 mg PO TID 07/31/16 08/03/16 hydrALAZINE HCL [Apresoline] 100 mg PO TID 07/31/16 08/03/16 Previous Rx's Medication Instructions Recorded Ferrous Sulfate [Iron (65 MG 325 mg PO TID #60 08/02/16 Elemental)] Levofloxacin [Levaquin] 500 mg PO DAILY #5 08/02/16 Ibuprofen [Motrin] 800 mg PO Q6HR PRN #20 tab 08/03/16 Allergies Allergy/AdvReac Type Severity Reaction Status Date / Time insulin lispro [From Humalog] Allergy Swelling Verified 08/03/16 07:36 latex Allergy Rash/Hives Verified 08/03/16 07:36 tramadol AdvReac Nausea & Verified 08/03/16 07:36 Vomiting Review of Systems ROS Other: All systems not noted in ROS Statement are negative. <Matthew Burnett - Last Filed: 08/03/16 07:08> ROS Other: All systems not noted in ROS Statement are negative. <Alex Dimas - Last Filed: 08/03/16 11:41> ROS Statement: Those systems with pertinent positive or pertinent negative responses have been documented in the HPI. Past Medical History Past Medical History: COPD, Diabetes Mellitus, GERD/Reflux, Hypertension, Renal Disease, Thyroid Disorder Additional Past Medical History / Comment(s): Dialysis T, Th, Sat, TAKES IRON SUPPLEMENTS ", "ENLARGED HEART VALVE","MURMUR", SWOLLEN TESTICLES History of Any Multi-Drug Resistant Organisms: None Reported Past Surgical History: Orthopedic Surgery Additional Past Surgical History / Comment(s): LT WRIST FISTULA Past Anesthesia/Blood Transfusion Reactions: No Reported Reaction Additional Past Anesthesia/Blood Transfusion Reaction / Comment(s): PAT BLOOD TRANSFUSION-NO REACTION Past Psychological History: No Psychological Hx Reported Additional Psychological History / Comment(s): PT STATED JUST MOVED HERE FROM [facility] YESTERDAY.DOES'NT HAVE A PCP ESTABLISHED YET. LIVING WITH HIS SISTER AND 2 BROTHERS, 5 CATS IN A SINGLE LEVEL HOME THAT HAS 2 STEPS. HAS A 4 WHEELED WALKER AND A NEBULIZER. Smoking Status: Current every day smoker Past Alcohol Use History: None Reported Additional Past Alcohol Use History / Comment(s): STARTED SMOKING AT AGE 20- SMOKES 5 CIG PER DAY. ALSO SMOKES MARIJUANA-USED THIS AM. Past Drug Use History: Marijuana - Past Family History Mother Family Medical History: Cancer Additional Family Medical History / Comment(s): COLON CANCER Brother(s) Family Medical History: Diabetes Mellitus Father Family Medical History: Diabetes Mellitus, Hyperlipidemia, Hypertension Additional Family Medical History / Comment(s): CADIAC PROBLEMS AND HAD A CARDIO PULMONARY ARREST <Matthew Burnett - Last Filed: 08/03/16 07:08> General Exam Limitations: physical limitation <Matthew Burnett - Last Filed: 08/03/16 07:08> <Alex Dimas - Last Filed: 08/03/16 11:41> - General Exam Comments Initial Comments: GENERAL: Patient is well-developed and well-nourished. Patient is nontoxic and well- hydrated and is in mild distress. ENT: Neck is soft and supple. No significant lymphadenopathy is noted. Oropharynx is clear. Moist mucous membranes. Neck has full range of motion without eliciting any pain. EYES: The sclera were anicteric and conjunctiva were pink and moist. Extraocular movements were intact and pupils were equal round and reactive to light. Eyelids were unremarkable. PULMONARY: Unlabored respirations. Good breath sounds bilaterally. No audible rales rhonchi or wheezing was noted. CARDIOVASCULAR: There is a regular rate and rhythm without any murmurs gallops or rubs. ABDOMEN: Soft and nontender with normal bowel sounds. No palpable organomegaly was noted. There is no palpable pulsatile mass. SKIN: patient is very edematous testicles and penile shaft. there is no areas of crepitus no open wounds and no blisters. Patient has some tenderness elbow site there is no breakdown of any skin but it is erythematous NEUROLOGIC: Patient is alert and oriented x3. Cranial nerves II through XII are grossly intact. Motor and sensory are also intact. Normal speech, volume and content. Symmetrical smile. MUSCULOSKELETAL: Normal extremities with adequate strength and full range of motion. LYMPHATICS: No significant lymphadenopathy is noted PSYCHIATRIC: Normal psychiatric evaluation. (Matthew Burnett) Course <Matthew Burnett - Last Filed: 08/03/16 07:08> <Alex Dimas - Last Filed: 08/03/16 11:41> Vital Signs 08/03/16 08/03/16 05:24 09:30 Temperature 96.9 F L 97.0 F L Pulse Rate 80 72 Respiratory 18 16 Rate Blood Pressure 162/104 159/97 O2 Sat by Pulse 97 97 Oximetry - Reevaluation(s) Reevaluation #1: 08/03/16 11:38 The patient did have an initially hemolyzed specimen which showed hyperkalemia. Repeat potassium was finally drawn and shows a marked improvement the patient is scheduled to have dialysis tomorrow he would like to be discharged he will be discharged as planned he is to keep his follow-ups closely and return if any problems (Alex Dimas) Medical Decision Making <Matthew Burnett - Last Filed: 08/03/16 07:08> - Lab Data Result diagrams: 08/03/16 06:06 08/03/16 10:50 <Alex Dimas - Last Filed: 08/03/16 11:41> - Medical Decision Making patient is taking antibiotics at home for the cellulitis. Dr. Dimas be taking over the care of this patient at 7 AM (Matthew Burnett) - Lab Data Lab Results 08/03/16 08/03/16 08/03/16 Range/Units 06:06 06:06 10:50 WBC 6.3 (3.8-10.6) k/uL RBC 2.38 L (4.30-5.90) m/uL Hgb 7.2 L (13.0-17.5) gm/dL Hct 22.6 L (39.0-53.0) % MCV 94.7 (80.0-100.0) fL MCH 30.3 (25.0-35.0) pg MCHC 32.0 (31.0-37.0) g/dL RDW 15.7 H (11.5-15.5) % Plt Count 296 (150-450) k/uL Neutrophils % 65 % Lymphocytes % 15 % Monocytes % 10 % Eosinophils % 5 % Basophils % 1 % Neutrophils # 4.1 (1.3-7.7) k/uL Lymphocytes # 1.0 (1.0-4.8) k/uL Monocytes # 0.7 (0-1.0) k/uL Eosinophils # 0.3 (0-0.7) k/uL Basophils # 0.0 (0-0.2) k/uL Sodium 133 L (137-145) mmol/L Potassium 6.4 H* 5.6 H (3.5-5.1) mmol/L Chloride 100 (98-107) mmol/L Carbon Dioxide 19 L (22-30) mmol/L Anion Gap 14 mmol/L BUN 76 H (9-20) mg/dL Creatinine 5.60 H* (0.66-1.25) mg/dL Est GFR (MDRD) Af Amer 14 (>60 ml/min/1.73 sqM) Est GFR (MDRD) Non-Af 12 (>60 ml/min/1.73 sqM) Glucose 65 L (74-99) mg/dL Calcium 7.7 L (8.4-10.2) mg/dL Total Bilirubin 0.6 (0.2-1.3) mg/dL AST 90 H (17-59) U/L ALT 45 (21-72) U/L Alkaline Phosphatase 164 H (38-126) U/L Total Protein 5.6 L (6.3-8.2) g/dL Albumin 2.7 L (3.5-5.0) g/dL Disposition <Matthew Burnett - Last Filed: 08/03/16 07:08> <Alex Dimas - Last Filed: 08/03/16 11:41> Clinical Impression: Chronic renal failure syndrome, Chronic anemia, Coccyodynia Disposition: HOME SELF-CARE Condition: Good Instructions: Coccyx Injury (ED), Chronic Kidney Disease (ED) Additional Instructions: Please keep your follow-ups with your floor supervisor for dialysis tomorrow Prescriptions: Ibuprofen [Motrin] 800 mg PO Q6HR PRN #20 tab PRN Reason: Pain Referrals: None,Stated [Primary Care Provider] - 1-2 days
[2016-08-03 07:16] LABS: Basophils % (A) 1 %; CH 30.8; CHCM 32.7; Eosinophils # (A) 0.3 k/uL (0-0.7); Eosinophils % (A) 5 %; HCT 22.6 % (39.0-53.0); HDW 2.62; HGB 7.2 gm/dL (13.0-17.5); Luc # (Auto) 0.19; Luc % (Auto) 3; Lymphocytes % (A) 15 %; MCH 30.3 pg (25.0-35.0); MCV 94.7 fL (80.0-100.0); Mean Platelet Volume 7.8; Monocytes # (A) 0.7 k/uL (0-1.0); Monocytes % (A) 10 %; Neutrophils # (A) 4.1 k/uL (1.3-7.7); Neutrophils % (A) 65 %; RBC 2.38 m/uL (4.30-5.90); RDW 15.7 % (11.5-15.5); WBC 6.3 k/uL (3.8-10.6); WBC (Perox) 6.35
[2016-08-03 07:58] LABS: Calcium 7.7 mg/dL (8.4-10.2); Total Bilirubin 0.6 mg/dL (0.2-1.3); Total Protein 5.6 g/dL (6.3-8.2)
[2016-08-03 08:01] LABS: Potassium 6.4 mmol/L (3.5-5.1)
[2016-08-03 09:34] VITALS: RESP 16
[2016-08-03] MEDS ORDERED: ACET/COD 300 MG/30 MG STARTER PACK 6 TAB BTL PO STA (11:55)
[2016-08-03 12:15] VITALS: BP 169/108; PULSE 75; TEMP 96.8
== END 2016-08-03 12:32 | disposition home or self-care (01) ==
LOC: EC 05:23
DX: I12.9 Hypertensive chronic kidney disease with stage 1 through stage 4 chronic kidney disease, or unspecified chronic kidney disease (principal); N18.9 Chronic kidney disease, unspecified; E11.22 Type 2 diabetes mellitus with diabetic chronic kidney disease; D64.9 Anemia, unspecified; M53.3 Sacrococcygeal disorders, not elsewhere classified; N50.89 Other specified disorders of the male genital organs; J44.9 Chronic obstructive pulmonary disease, unspecified; K21.9 Gastro-esophageal reflux disease without esophagitis; E07.9 Disorder of thyroid, unspecified; F17.200 Nicotine dependence, unspecified, uncomplicated; Z79.4 Long term (current) use of insulin; Z79.82 Long term (current) use of aspirin; Z79.899 Other long term (current) drug therapy; Z88.6 Allergy status to analgesic agent; Z88.8 Allergy status to other drugs, medicaments and biological substances; Z91.040 Latex allergy status; Z99.2 Dependence on renal dialysis
CPT/HCPCS: 99284; 96374; 36415; 80053; 84132; 85025; 87040; J1885; 99283

== ENCOUNTER 2016-08-05 08:49 | Inpatient (IN) | payer OTHER ==
--- NOTE | 2016-08-05 09:03 | ED ---
Altered Mental Status HPI - General Stated Complaint: Infection Time Seen by Provider: 08/05/16 08:49 Source: patient, EMS, RN notes reviewed, old records reviewed Mode of arrival: EMS - History of Present Illness Initial Comments: This is a 36-year-old male with a history of renal failure with dialysis diabetes who was just recently in the hospital and was recently in the emergency department for this same who is back today after EMS was called because of decreased responsiveness. He was found have a low blood glucose of 42 he was given 3 tubes of oral glucose and brought here for evaluation. He did seem to respond though he was still somewhat lethargic and blood pressure 167/110. He has not had any dialysis since he was an inpatient hospital he does state that he was not able to get his dialysis set up yet. [facility] [place] area and apparently had not preplanned this move to set up dialysis or physician contacts. MD Complaint: altered mental status, decreased responsiveness - Related Data Home Medications Medication Instructions Recorded Confirmed Albuterol Nebulized [Ventolin 2.5 mg INHALATION RT-QID PRN 07/31/16 08/05/16 Nebulized] Aspirin EC [Ecotrin Low Dose] 81 mg PO DAILY 07/31/16 08/05/16 Bumetanide [BUMEX] 2 mg PO BID 07/31/16 08/05/16 Carvedilol [Coreg] 25 mg PO BID 07/31/16 08/05/16 HYDROcodone/APAP 5-325MG [[place] 1 tab PO TID PRN 07/31/16 08/05/16 5-325] Insulin Glargine [Lantus] 18 unit SQ 07/31/16 08/05/16 Isosorbide Mononitrate ER [Imdur] 60 mg PO DAILY 07/31/16 08/05/16 Levothyroxine Sodium [Synthroid] 75 mcg PO DAILY 07/31/16 08/05/16 Losartan Potassium [Cozaar] 100 mg PO DAILY 07/31/16 08/05/16 Minoxidil 5 mg PO BID 07/31/16 08/05/16 Ranitidine HCl [Zantac] 150 mg PO HS 07/31/16 08/05/16 Umeclidinium [place] [Incruse 1 puff INHALATION RT-DAILY 07/31/16 08/05/16 Ellipta] amLODIPine [Norvasc] 10 mg PO DAILY 07/31/16 08/05/16 cloNIDine HCL 0.3 mg PO TID 07/31/16 08/05/16 hydrALAZINE HCL [Apresoline] 100 mg PO TID 07/31/16 08/05/16 Previous Rx's Medication Instructions Recorded Ferrous Sulfate [Iron (65 MG 325 mg PO TID #60 08/02/16 Elemental)] Levofloxacin [Levaquin] 500 mg PO DAILY #5 08/02/16 Ibuprofen [Motrin] 800 mg PO Q6HR PRN #20 tab 08/03/16 Allergies Allergy/AdvReac Type Severity Reaction Status Date / Time insulin lispro [From Humalog] Allergy Swelling Verified 08/05/16 10:35 latex Allergy Rash/Hives Verified 08/05/16 10:35 tramadol AdvReac Nausea & Verified 08/05/16 10:35 Vomiting Review of Systems ROS Statement: Those systems with pertinent positive or pertinent negative responses have been documented in the HPI. ROS Other: All systems not noted in ROS Statement are negative. Past Medical History Past Medical History: COPD, Diabetes Mellitus, GERD/Reflux, Hypertension, Renal Disease, Thyroid Disorder Additional Past Medical History / Comment(s): Dialysis T, Th, Sat, TAKES IRON SUPPLEMENTS ", "ENLARGED HEART VALVE","MURMUR", SWOLLEN TESTICLES History of Any Multi-Drug Resistant Organisms: None Reported Past Surgical History: Orthopedic Surgery Additional Past Surgical History / Comment(s): LT WRIST FISTULA Past Anesthesia/Blood Transfusion Reactions: No Reported Reaction Additional Past Anesthesia/Blood Transfusion Reaction / Comment(s): PAT BLOOD TRANSFUSION-NO REACTION Past Psychological History: No Psychological Hx Reported Additional Psychological History / Comment(s): PT STATED JUST MOVED HERE FROM [facility] YESTERDAY.DOES'NT HAVE A PCP ESTABLISHED YET. LIVING WITH HIS SISTER AND 2 BROTHERS, 5 CATS IN A SINGLE LEVEL HOME THAT HAS 2 STEPS. HAS A 4 WHEELED WALKER AND A NEBULIZER. Smoking Status: Current every day smoker Past Alcohol Use History: None Reported Additional Past Alcohol Use History / Comment(s): STARTED SMOKING AT AGE 20- SMOKES 5 CIG PER DAY. ALSO SMOKES MARIJUANA-USED THIS AM. Past Drug Use History: Marijuana - Past Family History Mother Family Medical History: Cancer Additional Family Medical History / Comment(s): COLON CANCER Brother(s) Family Medical History: Diabetes Mellitus Father Family Medical History: Diabetes Mellitus, Hyperlipidemia, Hypertension Additional Family Medical History / Comment(s): CADIAC PROBLEMS AND HAD A CARDIO PULMONARY ARREST General Exam - General Exam Comments Initial Comments: This is a well-developed well-nourished pale lethargic appearing male Limitations: altered mental status General appearance: alert, lethargic Head exam: Present: atraumatic, normocephalic, normal inspection Eye exam: Present: normal appearance, PERRL, EOMI. Absent: scleral icterus, conjunctival injection, periorbital swelling ENT exam: Present: other (Dental caries with poor dental hygiene) Neck exam: Present: normal inspection. Absent: tenderness, meningismus, lymphadenopathy Respiratory exam: Present: normal lung sounds bilaterally. Absent: respiratory distress, wheezes, rales, rhonchi, stridor Cardiovascular Exam: Present: regular rate, normal rhythm, normal heart sounds. Absent: systolic murmur, diastolic murmur, rubs, gallop, clicks GI/Abdominal exam: Present: soft, normal bowel sounds. Absent: distended, tenderness, guarding, rebound, rigid Extremities exam: Present: full ROM, normal capillary refill, pedal edema. Absent: tenderness, joint swelling, calf tenderness Back exam: Present: normal inspection Neurological exam: Present: alert, oriented X3, CN II-XII intact Psychiatric exam: Present: flat affect Skin exam: Present: warm, dry, intact, pallor. Absent: rash Course Vital Signs 08/05/16 08/05/16 08/05/16 08:58 09:20 11:26 Temperature 97.8 F Pulse Rate 79 83 79 Respiratory 18 18 18 Rate Blood Pressure 214/121 223/131 207/114 O2 Sat by Pulse 100 99 Oximetry 08/05/16 08/05/16 11:38 11:43 Temperature Pulse Rate 85 Respiratory Rate Blood Pressure 198/114 O2 Sat by Pulse 99 Oximetry - Reevaluation(s) Reevaluation #1: 08/05/16 09:03 The patient was noted have a blood glucose of 45 he was given orange juice and peanut butter pending IV establishment Reevaluation #2: 08/05/16 11:56 Patient has responded to the treatment and has maintained an adequate was sugar. He did state that he took his medication as former did not eat much food. He has not had dialysis since his last hospital admission and will require readmission. Medical Decision Making - Lab Data Result diagrams: 08/05/16 09:32 08/05/16 09:32 Lab Results 08/05/16 08/05/16 08/05/16 Range/Units 08:54 09:06 09:18 WBC (3.8-10.6) k/uL RBC (4.30-5.90) m/uL Hgb (13.0-17.5) gm/dL Hct (39.0-53.0) % MCV (80.0-100.0) fL MCH (25.0-35.0) pg MCHC (31.0-37.0) g/dL RDW (11.5-15.5) % Plt Count (150-450) k/uL Neutrophils % % Lymphocytes % % Monocytes % % Eosinophils % % Basophils % % Neutrophils # (1.3-7.7) k/uL Lymphocytes # (1.0-4.8) k/uL Monocytes # (0-1.0) k/uL Eosinophils # (0-0.7) k/uL Basophils # (0-0.2) k/uL Anisocytosis Sodium (137-145) mmol/L Potassium (3.5-5.1) mmol/L Chloride (98-107) mmol/L Carbon Dioxide (22-30) mmol/L Anion Gap mmol/L BUN (9-20) mg/dL Creatinine (0.66-1.25) mg/dL Est GFR (MDRD) Af Amer (>60 ml/min/1.73 sqM) Est GFR (MDRD) Non-Af (>60 ml/min/1.73 sqM) Glucose (74-99) mg/dL POC Glucose (mg/dL) 45 L 49 L 50 L (75-99) mg/dL POC Glu Relief Pilot ID [place] Alison [place], Alison Calcium (8.4-10.2) mg/dL Magnesium (1.6-2.3) mg/dL Total Bilirubin (0.2-1.3) mg/dL AST (17-59) U/L ALT (21-72) U/L Alkaline Phosphatase (38-126) U/L NT-Pro-B Natriuret Pep pg/mL Total Protein (6.3-8.2) g/dL Albumin (3.5-5.0) g/dL 08/05/16 08/05/16 08/05/16 Range/Units 09:30 09:32 09:32 WBC 7.3 (3.8-10.6) k/uL RBC 2.75 L (4.30-5.90) m/uL Hgb 8.5 L (13.0-17.5) gm/dL Hct 26.3 L (39.0-53.0) % MCV 95.8 (80.0-100.0) fL MCH 30.9 (25.0-35.0) pg MCHC 32.3 (31.0-37.0) g/dL RDW 16.2 H (11.5-15.5) % Plt Count 336 (150-450) k/uL Neutrophils % 76 % Lymphocytes % 8 % Monocytes % 7 % Eosinophils % 7 % Basophils % 1 % Neutrophils # 5.6 (1.3-7.7) k/uL Lymphocytes # 0.6 L (1.0-4.8) k/uL Monocytes # 0.5 (0-1.0) k/uL Eosinophils # 0.5 (0-0.7) k/uL Basophils # 0.1 (0-0.2) k/uL Anisocytosis Slight Sodium (137-145) mmol/L Potassium (3.5-5.1) mmol/L Chloride (98-107) mmol/L Carbon Dioxide (22-30) mmol/L Anion Gap mmol/L BUN (9-20) mg/dL Creatinine (0.66-1.25) mg/dL Est GFR (MDRD) Af Amer (>60 ml/min/1.73 sqM) Est GFR (MDRD) Non-Af (>60 ml/min/1.73 sqM) Glucose (74-99) mg/dL POC Glucose (mg/dL) 59 L (75-99) mg/dL POC Glu Relief Pilot ID [facility] Calcium (8.4-10.2) mg/dL Magnesium (1.6-2.3) mg/dL Total Bilirubin (0.2-1.3) mg/dL AST (17-59) U/L ALT (21-72) U/L Alkaline Phosphatase (38-126) U/L NT-Pro-B Natriuret Pep 47735 pg/mL Total Protein (6.3-8.2) g/dL Albumin (3.5-5.0) g/dL 08/05/16 08/05/16 08/05/16 Range/Units 09:32 10:05 10:32 WBC (3.8-10.6) k/uL RBC (4.30-5.90) m/uL Hgb (13.0-17.5) gm/dL Hct (39.0-53.0) % MCV (80.0-100.0) fL MCH (25.0-35.0) pg MCHC (31.0-37.0) g/dL RDW (11.5-15.5) % Plt Count (150-450) k/uL Neutrophils % % Lymphocytes % % Monocytes % % Eosinophils % % Basophils % % Neutrophils # (1.3-7.7) k/uL Lymphocytes # (1.0-4.8) k/uL Monocytes # (0-1.0) k/uL Eosinophils # (0-0.7) k/uL Basophils # (0-0.2) k/uL Anisocytosis Sodium 136 L (137-145) mmol/L Potassium 5.7 H (3.5-5.1) mmol/L Chloride 100 (98-107) mmol/L Carbon Dioxide 20 L (22-30) mmol/L Anion Gap 16 mmol/L BUN 90 H* (9-20) mg/dL Creatinine 7.08 H* (0.66-1.25) mg/dL Est GFR (MDRD) Af Amer 11 (>60 ml/min/1.73 sqM) Est GFR (MDRD) Non-Af 9 (>60 ml/min/1.73 sqM) Glucose 47 L* (74-99) mg/dL POC Glucose (mg/dL) 103 H 110 H (75-99) mg/dL POC Glu Relief Pilot [place] Andrew Calcium 7.9 L (8.4-10.2) mg/dL Magnesium 1.8 (1.6-2.3) mg/dL Total Bilirubin 0.6 (0.2-1.3) mg/dL AST 143 H (17-59) U/L ALT 75 H (21-72) U/L Alkaline Phosphatase 301 H (38-126) U/L NT-Pro-B Natriuret Pep pg/mL Total Protein 6.4 (6.3-8.2) g/dL Albumin 3.2 L (3.5-5.0) g/dL 08/05/16 Range/Units 11:18 WBC (3.8-10.6) k/uL RBC (4.30-5.90) m/uL Hgb (13.0-17.5) gm/dL Hct (39.0-53.0) % MCV (80.0-100.0) fL MCH (25.0-35.0) pg MCHC (31.0-37.0) g/dL RDW (11.5-15.5) % Plt Count (150-450) k/uL Neutrophils % % Lymphocytes % % Monocytes % % Eosinophils % % Basophils % % Neutrophils # (1.3-7.7) k/uL Lymphocytes # (1.0-4.8) k/uL Monocytes # (0-1.0) k/uL Eosinophils # (0-0.7) k/uL Basophils # (0-0.2) k/uL Anisocytosis Sodium (137-145) mmol/L Potassium (3.5-5.1) mmol/L Chloride (98-107) mmol/L Carbon Dioxide (22-30) mmol/L Anion Gap mmol/L BUN (9-20) mg/dL Creatinine (0.66-1.25) mg/dL Est GFR (MDRD) Af Amer (>60 ml/min/1.73 sqM) Est GFR (MDRD) Non-Af (>60 ml/min/1.73 sqM) Glucose (74-99) mg/dL POC Glucose (mg/dL) 123 H (75-99) mg/dL POC Glu Relief Pilot ID [place] Calcium (8.4-10.2) mg/dL Magnesium (1.6-2.3) mg/dL Total Bilirubin (0.2-1.3) mg/dL AST (17-59) U/L ALT (21-72) U/L Alkaline Phosphatase (38-126) U/L NT-Pro-B Natriuret Pep pg/mL Total Protein (6.3-8.2) g/dL Albumin (3.5-5.0) g/dL - EKG Data -: EKG Interpreted by Me EKG shows normal: sinus rhythm (Sinus rhythm rate is 72. Interval 146 QRS duration 80 daily since QTC of 420/468 abnormal QRS-T angle no acute ST-T wave changes) Critical Care Time Critical Care Time: Yes Critical Care Time: 35 minutes of critical care time which includes monitoring initially EMS run and discussed with paramedics. History physical lab and x-rays on the patient. Reevaluation patient several occasions. Review of old charting. Discussion with the admitting physician admission orders. Disposition Clinical Impression: CHF (congestive heart failure), Chronic renal failure, Hypoglycemia, Accelerated hypertension Disposition: ADMITTED IP TO THIS [facility] Condition: Stable Referrals: Nonstaff,Physician [REFERRING] - 1-2 days
[2016-08-05 09:04] LABS: Glucose,Whole Blood 45 mg/dL (75-99)
[2016-08-05] MEDS: DEXTROSE 4 GM CHEWABLE PO STA ×2 (09:07→09:19)
[2016-08-05 09:09] LABS: Glucose,Whole Blood 49 mg/dL (75-99)
[2016-08-05 09:20] LABS: Glucose,Whole Blood 50 mg/dL (75-99)
[2016-08-05 09:31] LABS: Glucose,Whole Blood 59 mg/dL (75-99)
[2016-08-05] MEDS ORDERED: DEXTROSE 50%-WATER 50 ML SYRINGE IVP STA (09:37)
[2016-08-05 10:05] LABS: Anisocytosis Slight; Basophils # (A) 0.1 k/uL (0-0.2); Basophils % (A) 1 %; CH 30.8; CHCM 32.4; Eosinophils # (A) 0.5 k/uL (0-0.7); Eosinophils % (A) 7 %; HCT 26.3 % (39.0-53.0); HDW 2.48; HGB 8.5 gm/dL (13.0-17.5); Luc # (Auto) 0.15; Luc % (Auto) 2; Lymphocytes # (A) 0.6 k/uL (1.0-4.8); Lymphocytes % (A) 8 %; MCH 30.9 pg (25.0-35.0); MCHC 32.3 g/dL (31.0-37.0); MCV 95.8 fL (80.0-100.0); Mean Platelet Volume 7.7; Monocytes # (A) 0.5 k/uL (0-1.0); Monocytes % (A) 7 %; Neutrophils # (A) 5.6 k/uL (1.3-7.7); Neutrophils % (A) 76 %; RBC 2.75 m/uL (4.30-5.90); RDW 16.2 % (11.5-15.5); WBC 7.3 k/uL (3.8-10.6); WBC (Perox) 7.67
[2016-08-05 10:07] LABS: Glucose,Whole Blood 103 mg/dL (75-99)
[2016-08-05 10:20] LABS: Calcium 7.9 mg/dL (8.4-10.2); Magnesium 1.8 mg/dL (1.6-2.3); Potassium 5.7 mmol/L (3.5-5.1); Total Bilirubin 0.6 mg/dL (0.2-1.3); Total Protein 6.4 g/dL (6.3-8.2)
[2016-08-05 10:35] LABS: Glucose,Whole Blood 110 mg/dL (75-99)
--- NOTE | 2016-08-05 10:35 | XR ---
EXAMINATION TYPE: XR chest 2V DATE OF EXAM: 08/05/2016 10:29 AM COMPARISON: 07/31/2016 TECHNIQUE: PA and lateral views submitted. HISTORY: Cough FINDINGS: Diffuse interstitial pattern with cardiomegaly and small bilateral effusions. No pneumothorax. Degene rative change of the spine. Mild hyperinflation. IMPRESSION: 1. Correlate for mild CHF. 2. Cardiomegaly may been the basis of cardiomyopathy or pericardial effusion.
[2016-08-05 11:21] LABS: Glucose,Whole Blood 123 mg/dL (75-99)
[2016-08-05] MEDS ORDERED: hydrALAZINE HCL 20 MG/ML 1 ML VIAL IVP STA (11:27)
[2016-08-05] MEDS ORDERED: FUROSEMIDE 10 MG/ML 4 ML VIAL IV STA (11:27)
[2016-08-05] MEDS ORDERED: IBUPROFEN 800 MG TAB PO PRN (12:05)
[2016-08-05] MEDS ORDERED: ALBUTEROL NEBULIZED 2.5 MG/3 ML INHALATION PRN (12:05)
[2016-08-05] MEDS: FUROSEMIDE 10 MG/ML 4 ML VIAL IV SCH ×2 (12:08→22:59)
[2016-08-05 12:09] LABS: Glucose,Whole Blood 130 mg/dL (75-99)
[2016-08-05] MEDS: SODIUM CHLORIDE 0.9% 1,000 ML IV SCH (12:34)
[2016-08-05] MEDS: cloNIDine HCL 0.1 MG TAB PO SCH ×2 (16:35→23:00)
[2016-08-05] MEDS: FERROUS SULFATE 325 MG TAB PO SCH ×2 (16:35→23:00)
[2016-08-05] MEDS: HEPARIN SODIUM,PORCINE 5,000 UNIT/ML 1 ML VIAL SQ SCH ×2 (16:35→23:01)
[2016-08-05] MEDS: hydrALAZINE HCL 50 MG TAB PO SCH ×2 (16:35→22:59)
[2016-08-05 17:04] LABS: Amorphous Sediment,Urine Rare /hpf; Appearance,Urine Clear (Clear); Bilirubin,Urine Negative (Negative); Glucose,Urine (UA) 1+ (Negative); Ketones,Urine Negative (Negative); Leukocyte Esterase,Urine Negative (Negative); Mucus,Urine Rare /hpf; Nitrite,Urine Negative (Negative); Particle Count 501; Protein,Urine 2+ (Negative); RBC,Urine 1 /hpf (0-5); Specific Gravity,Urine 1.007 (1.001-1.035); Squamous Epithelial Cell,Urine <1 /hpf (0-4); UA Billing (MACRO vs. MICRO) MICRO; Urobilinogen,Urine <2.0 mg/dL (<2.0); WBC,Urine 2 /hpf (0-5)
[2016-08-05 20:34] LABS: Glucose,Whole Blood 202 mg/dL (75-99)
[2016-08-05] MEDS ORDERED: INSULIN GLARGINE 100 UNIT/ML 10 ML VIAL SQ SCH ×2 (21:00→21:13)
[2016-08-05] MEDS ORDERED: TEMAZEPAM 15 MG CAP PO PRN (21:13)
[2016-08-05] MEDS ORDERED: ALPRAZolam 0.25 MG TAB PO PRN (21:13)
[2016-08-05] MEDS ORDERED: IBUPROFEN 200 MG TAB PO PRN (21:13)
[2016-08-05] MEDS: FAMOTIDINE 20 MG TAB PO SCH (22:59)
[2016-08-05] MEDS: MINOXIDIL 2.5 MG TAB PO SCH (22:59)
[2016-08-05] MEDS: CARVEDILOL 12.5 MG TAB PO SCH (23:00)
[2016-08-05] MEDS: BUMETANIDE 1 MG TAB PO SCH (23:00)
[2016-08-06 02:04] LABS: Glucose,Whole Blood 254 mg/dL (75-99)
[2016-08-06] MEDS: FUROSEMIDE 10 MG/ML 4 ML VIAL IV SCH ×3 (04:45→20:47)
--- NOTE | 2016-08-06 05:21 | HP ---
DATE OF ADMISSION: The chief complaints are decreased responsiveness and hypoglycemia and as well as shortness of breath. HISTORY OF PRESENT ILLNESS: This 36-year-old gentleman with a past medical history of multiple medical problems including COPD, history of diabetes mellitus, GERD, hypertension, history of hemodialysis on Wednesday, , Wednesday being followed in the outpatient was recently admitted to [facility]. Today was the patient's dialysis, but the patient is unresponsive and the patient did not with the dialysis and sugars was found to be in the 40s and patient was given oral glucose and was brought to [facility] for evaluation. Patient was initially drowsy but sensorium improved. Sugar also improved. Patient also had features of CHF. The patient was admitted for further evaluation and treatment. There is no history of any fever, rigors or chills. No history of any headache, loss of consciousness or seizures at this time. PAST MEDICAL HISTORY: History of COPD, history of diabetes mellitus, history of GERD, hypertension, history of renal disease and chronic hemodialysis. Medications prior to admission include home medications are: 1. Ibuprofen, Motrin, 800 mg q.6 p.r.n. 2. Hydrocodone 5 mg t.i.d. p.r.n. 3. Ventolin 2.5 q.i.d. p.r.n. 4. Apresoline 100 mg p.o. t.i.d. 5. Clonidine 0.3 t.i.d. 6. Norvasc 10 mg p.o. daily. 7. Incruse Ellipta 1 puff daily. 8. Zantac 150 mg q.h.s. 9. Minoxidil 5 mg p.o. b.i.d. 10. Cozaar 100 mg p.o. daily. 11. Synthroid 75 mcg p.o. daily. 12. Levaquin 500 mg p.o. daily. 13. Imdur 60 mg p.o. daily. 14. Lantus 18 units subcu q.h.s. 15. Iron sulfate 325 mg p.o. t.i.d. 16. Coreg 25 mg p.o. b.i.d. 17. Bumex 2 mg p.o. b.i.d. 18. Ecotrin 81 mg daily. ALLERGIES: INSULIN LISPRO, LATEX, TRAMADOL. FAMILY HISTORY: History of colon cancer in the family. SOCIAL HISTORY: History of THC. History of smoker. REVIEW OF SYSTEMS: ENT: No diminishing hearing, no diminished vision. CARDIOVASCULAR: No angina, otherwise, as mentioned earlier. RESPIRATORY: As mentioned earlier. GI: As mentioned earlier. : As mentioned earlier. NERVOUS SYSTEM: No numbness or weakness. ALLERGY/IMMUNOLOGY: No asthma or hayfever. MUSCULOSKELETAL: As mentioned earlier. HEMATOLOGY/ONCOLOGY: As mentioned earlier. ENDOCRINE: Hypothyroidism. CONSTITUTIONAL: As mentioned earlier. DERMATOLOGY: Negative. RHEUMATOLOGY: Negative. PSYCHIATRY: As mentioned earlier. PHYSICAL EXAMINATION: The patient is alert and oriented x3. Pulse is 85, blood pressure 190/100, respirations 18, temperature 97.2, pulse ox 100% on 2 L. HEENT: Conjunctivae normal. Oral mucosa moist. NECK: No jugular venous distention. No carotid bruit. No lymph node enlargement. CARDIOVASCULAR: S1 and S2 muffled. No S3 or S4. RESPIRATORY: Breath sounds diminished at the bases. A few rhonchi and crackles especially in the bases. ABDOMEN: Soft, nontender. No mass palpable. LEGS: Bilateral leg edema. NERVOUS SYSTEM: Higher function as mentioned earlier. Moves all 4 limbs. No focal motor or sensory deficits. LYMPHATICS: No lymphadenopathy of neck, axillae or groin. SKIN; No ulcers, rashes or bleeding. Labs are at this time show UA noted. Accu-Cheks 130, 202. WBC 7.3, hemoglobin 8.5. Creatinine is 7.08. Sodium 136, potassium 5.7. ASSESSMENT: 1. Change in mental status with hypoglycemia with acute metabolic encephalopathy secondary to hypoglycemia. 2. Congestive heart failure acute exacerbation, ejection fraction unknown. 3. Chronic renal failure end-stage renal disease stage V on hemodialysis Wednesday, , Wednesday cycle. 4. Hyponatremia. 5. Hyperkalemia. 6. Diabetes mellitus type 2. 7. Increased AST, ALT with mild hepatitis, undetermined etiology. 8. Increased alkaline phosphatase. 9. Mild hypoalbuminemia. 10. Anemia, normocytic anemia of chronic medical disease. 11. History of chronic obstructive pulmonary disease. 12. History of gastroesophageal reflux disease. 13. Hypertension, essential. 14. History of hypothyroidism. 15. nicotine dependence. 16. History of THC. 17. FULL CODE. RECOMMENDATIONS AND DISCUSSION: In this 36-year-old gentleman who presented with multiple complex medical issues, will monitor the patient closely. Continue the current medications. Continue symptomatic treatment. Continue hemodialysis nephrology consultation. Also recommend a 2-D echo with Doppler and continue to monitor. Guarded prognosis because of multiple complex medical issues. Further recommendations to follow. A cardiology consultation also will be sought. Will also recommend the patient to follow up with a primary physician closely after discharge. Patient apparently moved to [place] from [place] recently. KILLIAN
[2016-08-06 06:03] LABS: Glucose,Whole Blood 252 mg/dL (75-99)
[2016-08-06] MEDS: LEVOTHYROXINE 75 MCG TAB PO SCH (06:18)
[2016-08-06 07:23] LABS: Anisocytosis Slight; Basophils # (A) 0.1 k/uL (0-0.2); Basophils % (A) 1 %; CH 30.6; CHCM 32.4; Eosinophils # (A) 0.3 k/uL (0-0.7); Eosinophils % (A) 6 %; HDW 2.53; Luc # (Auto) 0.18; Luc % (Auto) 3; Lymphocytes # (A) 0.7 k/uL (1.0-4.8); Lymphocytes % (A) 11 %; MCH 30.3 pg (25.0-35.0); MCHC 31.8 g/dL (31.0-37.0); MCV 95.1 fL (80.0-100.0); Mean Platelet Volume 7.4; Monocytes # (A) 0.6 k/uL (0-1.0); Monocytes % (A) 9 %; Neutrophils # (A) 4.4 k/uL (1.3-7.7); Neutrophils % (A) 71 %; RBC 2.21 m/uL (4.30-5.90); RDW 16.2 % (11.5-15.5); WBC 6.3 k/uL (3.8-10.6); WBC (Perox) 6.05
[2016-08-06 07:24] LABS: Calcium 7.5 mg/dL (8.4-10.2); Magnesium 1.8 mg/dL (1.6-2.3); Total Bilirubin 0.5 mg/dL (0.2-1.3)
[2016-08-06 07:25] LABS: HGB 6.7 gm/dL (13.0-17.5)
[2016-08-06 07:37] LABS: Potassium 6.8 mmol/L (3.5-5.1)
[2016-08-06] MEDS ORDERED: INSULIN REGULAR 100 UNIT/ML VIAL IV ONE (07:48)
[2016-08-06] MEDS ORDERED: SODIUM POLYSTYRENE SULFONATE 15 GM/60 ML BOTTLE PO STA (07:48)
[2016-08-06] MEDS ORDERED: DEXTROSE 50%-WATER 50 ML SYRINGE IVP STA (07:53)
[2016-08-06] MEDS ORDERED: ALBUTEROL NEBULIZED (CONC) 20 MG, SODIUM CHLORIDE 0.9% NEBULIZ 3 ML INHALATION ONE ×2 (07:54)
[2016-08-06] MEDS ORDERED: CALCIUM GLUCONATE 1,000 MG in SODIUM CHLORIDE 0.9% 100 ML IVPB ONE (08:00)
[2016-08-06] MEDS ORDERED: LIDOCAINE 2% INJ 20 MG/ML SQ ONE ×2 (08:39→08:43)
[2016-08-06] MEDS ORDERED: MIDAZOLAM 2 MG/2 ML VIAL IV ONE (08:42)
[2016-08-06] MEDS: SODIUM CHLORIDE 0.9% 1,000 ML IV SCH (08:45)
[2016-08-06] MEDS ORDERED: fentaNYL (PF) 50 MCG/ML 2 ML AMP IV ONE (08:57)
[2016-08-06 09:38] LABS: INR 1.1 (<1.1); Prothrombin Time 11.1 sec (9.0-12.0)
[2016-08-06] MEDS: HEPARIN SODIUM,PORCINE 5,000 UNIT/ML 1 ML VIAL SQ SCH ×3 (09:40→23:07)
--- NOTE | 2016-08-06 09:56 | CONS ---
DATE OF CONSULTATION: This is a 36-year-old gentleman. I was consulted for placement of urgent dialysis catheter. This patient had history of chronic renal failure, history of COPD, history of diabetes mellitus, history of hypertension. He has been having dialysis 3 times a week. Patient missed a few appointments for dialysis center. He came with shortness of breath and patient needed urgent dialysis catheter. Patient had a Mikey fistula placed in [place] and they had difficulty in accessing the fistula. I was consulted because his potassium was 5.[address] an urgent dialysis catheter. MEDICAL HISTORY: History of chronic renal failure, COPD, diabetes mellitus, hypertension. PERSONAL HISTORY: Allergy to INSULIN LISPRO, LATEX, and TRAMADOL. SOCIAL HISTORY: History of smoker. On examination, patient was seen in his room. NECK: Supple. CHEST: Clear to auscultation. ABDOMEN: Soft. Femorals are 1+. Patient has marked edema and swelling of the lower extremity. Potassium is 5.7. Plan is placement of a dialysis catheter. Risks and complications discussed.
--- NOTE | 2016-08-06 09:58 | P.NPCON ---
History of Present Illness - Reason for Consult end stage renal disease - History of Present Illness Reason for consultation: End-stage renal disease History of present illness: Patient is a 36-year-old male seen in renal consultation for end-stage renal disease. He is maintained on hemodialysis on a Wednesday schedule via left upper extremity AV fistula. Etiology of his kidney disease is diabetic kidney disease. Patient was recently admitted with volume overload and elevated troponins. His last hemodialysis was on Wednesday in the hospital and he did not go to dialysis as an outpatient. He receives dialysis in [place] and he recently moved tumor [place]. Last visit he he stated he would continue to go to [place] for dialysis but now states he wishes to stay near [place]. He is quite fluid overloaded. He does admit to some dyspnea. Denies any vomiting or diarrhea. He was to undergo dialysis yesterday night however his fistula could not be cannulated. He underwent a femoral catheter placement this morning. His potassium level is 6.8 this morning. Denies any fever or chills. Denies chest pain. Appetite is fair. Vital signs are stable. General: The patient appeared well nourished and normally developed. HEENT: Head exam is unremarkable. Neck is without jugular venous distension. LUNGS: Lungs are clear to auscultation and percussion. Breath sounds decreased. HEART: Rate and Rhythm are regular. First and second heart sounds normal. No murmurs, rubs or gallops. ABDOMEN: Abdominal exam reveals normal bowel sounds. Non-tender and non- distended. No evidence of peritonitis. EXTREMITITES: 1+ edema. Past Medical History Past Medical History: COPD, Diabetes Mellitus, GERD/Reflux, Hypertension, Renal Disease, Thyroid Disorder Additional Past Medical History / Comment(s): Dialysis T, Th, Sat, TAKES IRON SUPPLEMENTS ", "ENLARGED HEART VALVE","MURMUR", SWOLLEN TESTICLES History of Any Multi-Drug Resistant Organisms: None Reported Past Surgical History: Orthopedic Surgery Additional Past Surgical History / Comment(s): LT WRIST FISTULA Past Anesthesia/Blood Transfusion Reactions: No Reported Reaction Additional Past Anesthesia/Blood Transfusion Reaction / Comment(s): PAT BLOOD TRANSFUSION-NO REACTION Past Psychological History: No Psychological Hx Reported Additional Psychological History / Comment(s): PT STATED JUST MOVED HERE FROM [facility] YESTERDAY.DOES'NT HAVE A PCP ESTABLISHED YET. LIVING WITH HIS SISTER AND 2 BROTHERS, 5 CATS IN A SINGLE LEVEL HOME THAT HAS 2 STEPS. HAS A 4 WHEELED WALKER AND A NEBULIZER. Smoking Status: Current every day smoker Past Alcohol Use History: None Reported Additional Past Alcohol Use History / Comment(s): STARTED SMOKING AT AGE 20- SMOKES 5 CIG PER DAY. ALSO SMOKES MARIJUANA-USED THIS AM. Past Drug Use History: Marijuana - Past Family History Mother Family Medical History: Cancer Additional Family Medical History / Comment(s): COLON CANCER Brother(s) Family Medical History: Diabetes Mellitus Father Family Medical History: Diabetes Mellitus, Hyperlipidemia, Hypertension Additional Family Medical History / Comment(s): CADIAC PROBLEMS AND HAD A CARDIO PULMONARY ARREST Medications and Allergies Home Medications Medication Instructions Recorded Confirmed Type Albuterol Nebulized [Ventolin 2.5 mg INHALATION RT-QID PRN 07/31/16 08/05/16 History Nebulized] Aspirin EC [Ecotrin Low Dose] 81 mg PO DAILY 07/31/16 08/05/16 History Bumetanide [BUMEX] 2 mg PO BID 07/31/16 08/05/16 History Carvedilol [Coreg] 25 mg PO BID 07/31/16 08/05/16 History HYDROcodone/APAP 5-325MG [[place] 1 tab PO TID PRN 07/31/16 08/05/16 History 5-325] Insulin Glargine [Lantus] 18 unit SQ HS 07/31/16 08/05/16 History Isosorbide Mononitrate ER [Imdur] 60 mg PO DAILY 07/31/16 08/05/16 History Levothyroxine Sodium [Synthroid] 75 mcg PO DAILY 07/31/16 08/05/16 History Losartan Potassium [Cozaar] 100 mg PO DAILY 07/31/16 08/05/16 History Minoxidil 5 mg PO BID 07/31/16 08/05/16 History Ranitidine HCl [Zantac] 150 mg PO HS 07/31/16 08/05/16 History Umeclidinium [place] [Incruse 1 puff INHALATION RT-DAILY 07/31/16 08/05/16 History Ellipta] amLODIPine [Norvasc] 10 mg PO DAILY 07/31/16 08/05/16 History cloNIDine HCL 0.3 mg PO TID 07/31/16 08/05/16 History hydrALAZINE HCL [Apresoline] 100 mg PO TID 07/31/16 08/05/16 History Allergies Allergy/AdvReac Type Severity Reaction Status Date / Time insulin lispro [From Humalog] Allergy Swelling Verified 08/05/16 10:35 latex Allergy Rash/Hives Verified 08/05/16 10:35 tramadol AdvReac Nausea & Verified 08/05/16 10:35 Vomiting Physical Exam Vitals: Vital Signs Temp Pulse Pulse Resp BP BP Pulse Ox 08/06/16 08:00 97 F L 83 18 159/85 99 08/06/16 04:00 97.0 F L 80 16 140/78 99 08/06/16 00:00 86 18 180/97 100 08/05/16 20:00 97.2 F L 85 18 190/100 100 08/05/16 19:22 97.8 F 08/05/16 19:00 83 18 165/86 100 08/05/16 17:38 88 18 182/94 100 08/05/16 17:08 84 18 163/89 100 08/05/16 16:38 90 18 205/123 100 08/05/16 16:08 86 18 183/97 99 08/05/16 15:38 82 18 174/92 98 08/05/16 14:45 83 18 199/107 94 L 08/05/16 13:54 82 18 164/98 98 08/05/16 13:00 83 18 193/110 99 08/05/16 12:06 90 18 174/113 100 08/05/16 11:43 99 08/05/16 11:38 85 198/114 08/05/16 11:26 79 18 207/114 99 08/05/16 10:38 72 18 196/114 100 08/05/16 10:08 82 18 187/120 98 08/05/16 10:05 78 18 205/114 98 Intake and Output 08/05/16 08/06/16 08/06/16 22:59 06:59 14:59 Intake Total 100 Output Total 500 Balance -500 100 Intake: Oral 100 Output: Urine 500 Other: Weight 86.183 kg 112 kg Results - Lab Results Most recent lab results Calcium 7.5 mg/dL (8.4-10.2) L 08/06/16 06:43 Magnesium 1.8 mg/dL (1.6-2.3) 08/06/16 06:43 08/06/16 06:43 08/06/16 06:43 Assessment and Plan Plan: Assessment: #1. End-stage renal disease maintained on hemodialysis on a Wednesday schedule via femoral catheter that was placed August 06. He has a AV fistula in the left upper extremity which is not functioning well at this time and there appears to be a small hematoma. #2. Hyperkalemia secondary to chronic kidney disease. #3. Anemia of chronic kidney disease. Rule out iron deficiency. Hemoglobin 6.7 this morning. #4. Insulin-dependent diabetes mellitus. #5. Hypervolemic hyponatremia. #6. Hypertension with chronic kidney disease. Controlled. #7. Fluid overload. Plan: Hemodialysis today with low potassium bath and 3-4 L ultrafiltration. Check iron studies. Start Aranesp. Transfuse 1 unit of blood with dialysis today. Check phosphorus level. Vascular surgery following. Will rest AV fistula for now. Permacath to be placed in the next day or 2. Will get watch caser on board to help in setting of dialysis outpatient near [place]. Thank you for the consultation. I will continue to follow the patient with you during his hospital stay.
--- NOTE | 2016-08-06 10:06 | P.CRDCN ---
<Shanique Kimball E - Last Filed: 08/06/16 09:47> History of Present Illness Consult date: 08/06/16 Requesting physician: Aziza More Chief complaint: Decreased responsiveness History of present illness: This is a 36-year-old gentleman with history of hypertension, diabetes , end-stage renal disease on hemodialysis, GERD, hypothyroidism, continue dependence, marijuana use, who was brought to the hospital via EMS because of decreased responsiveness. Patient was recently in the hospital earlier this month with increased swelling in his lower extremities as well as associated shortness of breath. Patient has recently moved to this area and has not yet been established with the dialysis center. His blood glucose on EMS arrival was 40. Patient was given 2 Amp of glucose. The pressure on arrival here 214/ 121, heart rate in the 70s to 80s, 100% on room air 97.8 temperature. Chest x- ray suggested mild congestive heart failure. Cardiomegaly based on cardiac myopathy or pericardial effusion also suggested. EKG shows normal sinus rhythm with lateral T-wave inversion. HemoGlobin on admission 8.5, 6.7 this morning. Potassium on admission 5.7, 6.8 this morning. BUN on admission 90 creatinine 7.0, BUN this morning 96, creatinine 7.2. AST on admission 143, ALT 75, alk phos 301, BNP level 90,600. Patient was initiated on IV Lasix in the emergency room, at the time of my examination this morning he is currently receiving dialysis. Past Medical History Past Medical History: COPD, Diabetes Mellitus, GERD/Reflux, Hypertension, Renal Disease, Thyroid Disorder Additional Past Medical History / Comment(s): Dialysis T, Th, Sat, TAKES IRON SUPPLEMENTS ", "ENLARGED HEART VALVE","MURMUR", SWOLLEN TESTICLES History of Any Multi-Drug Resistant Organisms: None Reported Past Surgical History: Orthopedic Surgery Additional Past Surgical History / Comment(s): LT WRIST FISTULA Past Anesthesia/Blood Transfusion Reactions: No Reported Reaction Additional Past Anesthesia/Blood Transfusion Reaction / Comment(s): PAT BLOOD TRANSFUSION-NO REACTION Past Psychological History: No Psychological Hx Reported Additional Psychological History / Comment(s): PT STATED JUST MOVED HERE FROM [facility] YESTERDAY.DOES'NT HAVE A PCP ESTABLISHED YET. LIVING WITH HIS SISTER AND 2 BROTHERS, 5 CATS IN A SINGLE LEVEL HOME THAT HAS 2 STEPS. HAS A 4 WHEELED WALKER AND A NEBULIZER. Smoking Status: Current every day smoker Past Alcohol Use History: None Reported Additional Past Alcohol Use History / Comment(s): STARTED SMOKING AT AGE 20- SMOKES 5 CIG PER DAY. ALSO SMOKES MARIJUANA-USED THIS AM. Past Drug Use History: Marijuana - Past Family History Mother Family Medical History: Cancer Additional Family Medical History / Comment(s): COLON CANCER Brother(s) Family Medical History: Diabetes Mellitus Father Family Medical History: Diabetes Mellitus, Hyperlipidemia, Hypertension Additional Family Medical History / Comment(s): CADIAC PROBLEMS AND HAD A CARDIO PULMONARY ARREST Medications and Allergies Home Medications Medication Instructions Recorded Confirmed Type Albuterol Nebulized [Ventolin 2.5 mg INHALATION RT-QID PRN 07/31/16 08/05/16 History Nebulized] Aspirin EC [Ecotrin Low Dose] 81 mg PO DAILY 07/31/16 08/05/16 History Bumetanide [BUMEX] 2 mg PO BID 07/31/16 08/05/16 History Carvedilol [Coreg] 25 mg PO BID 07/31/16 08/05/16 History HYDROcodone/APAP 5-325MG [Urania 1 tab PO TID PRN 07/31/16 08/05/16 History 5-325] Insulin Glargine [Lantus] 18 unit SQ HS 07/31/16 08/05/16 History Isosorbide Mononitrate ER [Imdur] 60 mg PO DAILY 07/31/16 08/05/16 History Levothyroxine Sodium [Synthroid] 75 mcg PO DAILY 07/31/16 08/05/16 History Losartan Potassium [Cozaar] 100 mg PO DAILY 07/31/16 08/05/16 History Minoxidil 5 mg PO BID 07/31/16 08/05/16 History Ranitidine HCl [Zantac] 150 mg PO HS 07/31/16 08/05/16 History Umeclidinium Council [Incruse 1 puff INHALATION RT-DAILY 07/31/16 08/05/16 History Ellipta] amLODIPine [Norvasc] 10 mg PO DAILY 07/31/16 08/05/16 History cloNIDine HCL 0.3 mg PO TID 07/31/16 08/05/16 History hydrALAZINE HCL [Apresoline] 100 mg PO TID 07/31/16 08/05/16 History Allergies Allergy/AdvReac Type Severity Reaction Status Date / Time insulin lispro [From [facility]] Allergy Swelling Verified 08/05/16 10:35 latex Allergy Rash/Hives Verified 08/05/16 10:35 tramadol AdvReac Nausea & Verified 08/05/16 10:35 Vomiting Physical Exam Vitals: Vital Signs Temp Pulse Pulse Resp BP BP Pulse Ox 08/06/16 08:00 97 F L 83 18 159/85 99 08/06/16 04:00 97.0 F L 80 16 140/78 99 08/06/16 00:00 86 18 180/97 100 08/05/16 20:00 97.2 F L 85 18 190/100 100 08/05/16 19:22 97.8 F 08/05/16 19:00 83 18 165/86 100 08/05/16 17:38 88 18 182/94 100 08/05/16 17:08 84 18 163/89 100 08/05/16 16:38 90 18 205/123 100 08/05/16 16:08 86 18 183/97 99 08/05/16 15:38 82 18 174/92 98 08/05/16 14:45 83 18 199/107 94 L 08/05/16 13:54 82 18 164/98 98 08/05/16 13:00 83 18 193/110 99 08/05/16 12:06 90 18 174/113 100 08/05/16 11:43 99 08/05/16 11:38 85 198/114 08/05/16 11:26 79 18 207/114 99 08/05/16 10:38 72 18 196/114 100 08/05/16 10:08 82 18 187/120 98 08/05/16 10:05 78 18 205/114 98 Intake and Output 08/05/16 08/06/16 08/06/16 22:59 06:59 14:59 Intake Total 100 Output Total 500 Balance -500 100 Intake: Oral 100 Output: Urine 500 Other: Weight 86.183 kg 112 kg PHYSICAL EXAMINATION: HEENT: Head is atraumatic, normocephalic. Pupils equal, round. Neck is supple. There is elevated jugular venous pressure. HEART EXAMINATION: Heart S1, S2 normal. No murmur or gallop heard. CHEST EXAMINATION: Lungs reveal crackles to posterior bases. No chest wall tenderness is noted on palpation or with deep breathing. ABDOMEN: Soft, obese, nontender. Bowel sounds are heard. No organomegaly noted. EXTREMITIES: 2+ peripheral pulses with 2+ evidence of peripheral edema and no calf tenderness noted. NEUROLOGIC patient is awake, alert and oriented -3. . Results 08/06/16 06:43 08/06/16 06:43 Cardiac Enzymes 08/05/16 08/06/16 Range/Units 09:32 06:43 AST 143 H 46 (17-59) U/L Coagulation 08/06/16 Range/Units 09:00 PT 11.1 (9.0-12.0) sec CBC 08/05/16 08/06/16 Range/Units 09:32 06:43 WBC 7.3 6.3 (3.8-10.6) k/uL RBC 2.75 L 2.21 L (4.30-5.90) m/uL Hgb 8.5 L 6.7 L* D (13.0-17.5) gm/dL Hct 26.3 L 21.0 L (39.0-53.0) % Plt Count 336 283 (150-450) k/uL Comprehensive Metabolic Panel 08/05/16 08/06/16 Range/Units 09:32 06:43 Sodium 136 L 132 L (137-145) mmol/L Potassium 5.7 H 6.8 H* (3.5-5.1) mmol/L Chloride 100 100 (98-107) mmol/L Carbon Dioxide 20 L 19 L (22-30) mmol/L BUN 90 H* 96 H* (9-20) mg/dL Creatinine 7.08 H* 7.26 H* (0.66-1.25) mg/dL Glucose 47 L* 251 H (74-99) mg/dL Calcium 7.9 L 7.5 L (8.4-10.2) mg/dL AST 143 H 46 (17-59) U/L ALT 75 H 51 (21-72) U/L Alkaline Phosphatase 301 H 201 H (38-126) U/L Total Protein 6.4 5.0 L (6.3-8.2) g/dL Albumin 3.2 L 2.4 L (3.5-5.0) g/dL Current Medications Generic Name Dose Route Start Last Admin Trade Name Freq PRN Reason Stop Dose Admin Hydrocodone Bitart/Acetaminophen 1 each 08/05/16 12:05 Urania 5-325 PO TID PRN Pain Albuterol Sulfate 2.5 mg 08/05/16 12:05 Ventolin Nebulized INHALATION RT-QID PRN Shortness Of Breath Alprazolam 0.25 mg 08/05/16 21:13 Xanax PO TID PRN Anxiety Amlodipine Besylate 10 mg 08/06/16 09:00 Norvasc PO DAILY CHRIS Aspirin 81 mg 08/06/16 09:00 Aspirin PO DAILY CHRIS Bumetanide 2 mg 08/05/16 21:00 08/05/16 23:00 Bumex PO 2 mg BID CHRIS Administration Carvedilol 25 mg 08/05/16 21:00 08/05/16 23:00 Coreg PO 25 mg BID CHRIS Administration Clonidine 0.3 mg 08/05/16 16:00 08/05/16 23:00 Catapres PO 0.3 mg TID CHRIS Administration Famotidine 20 mg 08/05/16 21:00 08/05/16 22:59 Pepcid PO 20 mg HS CHRIS Administration Ferrous Sulfate 325 mg 08/05/16 16:00 08/05/16 23:00 Feosol PO 325 mg TID CHRIS Administration Furosemide 40 mg 08/05/16 12:00 08/06/16 04:45 Lasix IV 40 mg Q8H CHRIS Administration Heparin Sodium (Porcine) 5,000 unit 08/05/16 16:00 08/06/16 09:40 Heparin SQ 5,000 unit Q8HR CHRIS Administration Hydralazine HCl 100 mg 08/05/16 16:00 08/05/16 22:59 Apresoline PO 100 mg TID CHRIS Administration Sodium Chloride 1,000 mls @ 20 mls/hr 08/05/16 12:00 08/06/16 08:45 Saline 0.9% IV 0 mls .Q24H CHRIS Administration Ibuprofen 200 mg 08/05/16 21:13 Advil PO Q6HR PRN Pain Insulin Glargine 10 unit 08/05/16 21:13 Lantus SQ HS CHRIS Isosorbide Mononitrate 60 mg 08/06/16 09:00 Imdur PO DAILY CHRIS Levofloxacin 500 mg 08/06/16 09:00 Levaquin PO 08/08/16 09:01 Q24H CHRIS Levothyroxine Sodium 75 mcg 08/06/16 06:30 08/06/16 06:18 Synthroid PO 75 mcg DAILY@0630 CHRIS Administration Losartan Potassium 100 mg 08/06/16 09:00 Cozaar PO DAILY CHRIS Minoxidil 5 mg 08/05/16 21:00 08/05/16 22:59 Loniten PO 5 mg BID CHRIS Administration Temazepam 15 mg 08/05/16 21:13 Restoril PO HS PRN Insomnia Tiotropium Council 1 puff 08/06/16 08:00 Spiriva INHALATION RT-DAILY CHRIS Intake and Output 08/05/16 08/06/16 08/06/16 22:59 06:59 14:59 Intake Total 100 Output Total 500 Balance -500 100 Intake: Oral 100 Output: Urine 500 Other: Weight 86.183 kg 112 kg 08/06/16 06:43 08/06/16 06:43 EKG Interpretations (text) EKG shows normal sinus rhythm with lateral T-wave inversion Assessment and Plan Plan: Assessment and plan #1 mental status changes with evidence of significant hypoglycemia #2 congestive heart failure, patient's LV function unknown. #3 end-stage renal disease on hemodialysis #4 hyperkalemia #5 anemia #6 diabetes #7 abnormal liver functions, could be secondary to congestion, improving this morning. #8 COPD #9 hypertension, accelerated #10 hypothyroidism #11 nicotine dependence Plan We'll continue IV Lasix. Obtain echocardiogram with Doppler study. Hold Bumex while the patient is on IV Lasix. Continue to monitor intake and output along with daily weights. Daily lytes BUN and creatinine. DNP note has been reviewed, I agree with a documented findings and plan of care. Patient was seen and examined. <Swapnil Donato - Last Filed: 08/06/16 10:55> Physical Exam Vitals: Vital Signs Temp Pulse Pulse Resp BP BP Pulse Ox 08/06/16 10:50 97.1 F L 88 18 162/83 08/06/16 08:00 97 F L 83 18 159/85 99 08/06/16 04:00 97.0 F L 80 16 140/78 99 08/06/16 00:00 86 18 180/97 100 08/05/16 20:00 97.2 F L 85 18 190/100 100 08/05/16 19:22 97.8 F 08/05/16 19:00 83 18 165/86 100 08/05/16 17:38 88 18 182/94 100 08/05/16 17:08 84 18 163/89 100 08/05/16 16:38 90 18 205/123 100 08/05/16 16:08 86 18 183/97 99 08/05/16 15:38 82 18 174/92 98 08/05/16 14:45 83 18 199/107 94 L 08/05/16 13:54 82 18 164/98 98 08/05/16 13:00 83 18 193/110 99 08/05/16 12:06 90 18 174/113 100 08/05/16 11:43 99 08/05/16 11:38 85 198/114 08/05/16 11:26 79 18 207/114 99 Intake and Output 08/05/16 08/06/16 08/06/16 22:59 06:59 14:59 Intake Total 100 Output Total 500 Balance -500 100 Intake: Oral 100 Blood Product 0 Rc As-1 Unit 0 [id number] Output: Urine 500 Other: Weight 86.183 kg 112 kg Results 08/06/16 06:43 08/06/16 06:43 Cardiac Enzymes 08/06/16 Range/Units 06:43 AST 46 (17-59) U/L Coagulation 08/06/16 Range/Units 09:00 PT 11.1 (9.0-12.0) sec CBC 08/06/16 Range/Units 06:43 WBC 6.3 (3.8-10.6) k/uL RBC 2.21 L (4.30-5.90) m/uL Hgb 6.7 L* D (13.0-17.5) gm/dL Hct 21.0 L (39.0-53.0) % Plt Count 283 (150-450) k/uL Comprehensive Metabolic Panel 08/06/16 Range/Units 06:43 Sodium 132 L (137-145) mmol/L Potassium 6.8 H* (3.5-5.1) mmol/L Chloride 100 (98-107) mmol/L Carbon Dioxide 19 L (22-30) mmol/L BUN 96 H* (9-20) mg/dL Creatinine 7.26 H* (0.66-1.25) mg/dL Glucose 251 H (74-99) mg/dL Calcium 7.5 L (8.4-10.2) mg/dL AST 46 (17-59) U/L ALT 51 (21-72) U/L Alkaline Phosphatase 201 H (38-126) U/L Total Protein 5.0 L (6.3-8.2) g/dL Albumin 2.4 L (3.5-5.0) g/dL Current Medications Generic Name Dose Route Start Last Admin Trade Name Freq PRN Reason Stop Dose Admin Hydrocodone Bitart/Acetaminophen 1 each 08/05/16 12:05 Urania 5-325 PO TID PRN Pain Albuterol Sulfate 2.5 mg 08/05/16 12:05 Ventolin Nebulized INHALATION RT-QID PRN Shortness Of Breath Alprazolam 0.25 mg 08/05/16 21:13 Xanax PO TID PRN Anxiety Amlodipine Besylate 10 mg 08/06/16 09:00 Norvasc PO DAILY CHRIS Aspirin 81 mg 08/06/16 09:00 Aspirin PO DAILY CHRIS Carvedilol 25 mg 08/05/16 21:00 08/05/16 23:00 Coreg PO 25 mg BID CHRIS Administration Clonidine 0.3 mg 08/05/16 16:00 08/05/16 23:00 Catapres PO 0.3 mg TID CHRIS Administration Darbepoetin [place] 40 mcg 08/06/16 11:00 Aranesp SQ Q7D CHRIS Famotidine 20 mg 08/05/16 21:00 08/05/16 22:59 Pepcid PO 20 mg HS CHRIS Administration Ferrous Sulfate 325 mg 08/05/16 16:00 08/05/16 23:00 Feosol PO 325 mg TID CHRIS Administration Furosemide 40 mg 08/05/16 12:00 08/06/16 04:45 Lasix IV 40 mg Q8H CHRIS Administration Heparin Sodium (Porcine) 5,000 unit 08/05/16 16:00 08/06/16 09:40 Heparin SQ 5,000 unit Q8HR CHRIS Administration Hydralazine HCl 100 mg 08/05/16 16:00 08/05/16 22:59 Apresoline PO 100 mg TID CHRIS Administration Sodium Chloride 1,000 mls @ 20 mls/hr 08/05/16 12:00 08/06/16 08:45 Saline 0.9% IV 0 mls .Q24H CHRIS Administration Ibuprofen 200 mg 08/05/16 21:13 Advil PO Q6HR PRN Pain Insulin Glargine 10 unit 08/05/16 21:13 Lantus SQ HS CHRIS Isosorbide Mononitrate 60 mg 08/06/16 09:00 Imdur PO DAILY CHRIS Levofloxacin 500 mg 08/06/16 09:00 Levaquin PO 08/08/16 09:01 Q24H CHRIS Levothyroxine Sodium 75 mcg 08/06/16 06:30 08/06/16 06:18 Synthroid PO 75 mcg DAILY@0630 CHRIS Administration Losartan Potassium 100 mg 08/06/16 09:00 Cozaar PO DAILY CHRIS Minoxidil 5 mg 08/05/16 21:00 08/05/16 22:59 Loniten PO 5 mg BID CHRIS Administration Temazepam 15 mg 08/05/16 21:13 Restoril PO HS PRN Insomnia Tiotropium Council 1 puff 08/06/16 08:00 Spiriva INHALATION RT-DAILY [facility] Intake and Output 08/05/16 08/06/16 08/06/16 22:59 06:59 14:59 Intake Total 100 Output Total 500 Balance -500 100 Intake: Oral 100 Blood Product 0 Rc As-1 Unit 0 [id number] Output: Urine 500 Other: Weight 86.183 kg 112 kg 08/06/16 06:43 08/06/16 06:43
[2016-08-06] MEDS: BUMETANIDE 1 MG TAB PO SCH (10:27)
[2016-08-06 10:49] LABS: Phosphorous 7.3 mg/dL (2.5-4.5)
[2016-08-06 10:59] LABS: % Iron Saturation 14.5 % (20-50)
[2016-08-06] MEDS ORDERED: DARBEPOETIN ALFA 40 MCG/0.4 ML SYRINGE SQ SCH (11:00)
[2016-08-06 12:25] LABS: Glucose,Whole Blood 327 mg/dL (75-99)
[2016-08-06] MEDS ORDERED: HEPARIN SODIUM,PORCINE 5,000 UNIT/ML 1 ML VIAL ONE (12:30)
[2016-08-06] MEDS ORDERED: GELATIN SPONGE,ABSORB (SMALL) 1 EACH SPONGE ONE (12:30)
[2016-08-06] MEDS: amLODIPine 10 MG TAB PO SCH (12:41)
[2016-08-06] MEDS: hydrALAZINE HCL 50 MG TAB PO SCH ×3 (12:42→20:47)
[2016-08-06] MEDS: CARVEDILOL 12.5 MG TAB PO SCH ×2 (12:42→20:46)
[2016-08-06] MEDS: LEVOFLOXACIN 500 MG TAB PO SCH (12:43)
[2016-08-06] MEDS: MINOXIDIL 2.5 MG TAB PO SCH ×2 (12:43→20:47)
[2016-08-06] MEDS: ASPIRIN 81 MG CHEW PO SCH (12:43)
[2016-08-06] MEDS: LOSARTAN 50 MG TAB PO SCH (12:43)
[2016-08-06] MEDS: cloNIDine HCL 0.1 MG TAB PO SCH ×3 (12:43→20:46)
[2016-08-06] MEDS: ISOSORBIDE MONONITRATE ER 60 MG TAB.ER.24H PO SCH (12:44)
[2016-08-06] MEDS: FERROUS SULFATE 325 MG TAB PO SCH ×3 (12:44→20:47)
[2016-08-06 14:01] VITALS: BMI 30.8
[2016-08-06 14:42] LABS: Hepatitis B Surface Ag Index 0.07
[2016-08-06 14:48] LABS: Hepatitis B Core IgM Index 0.01
[2016-08-06 15:00] LABS: Hepatitis C Virus IgG Ab Negative (Negative); Hepatitis C Virus IgG Index 0.05
--- NOTE | 2016-08-06 15:04 | IR ---
EXAMINATION TYPE: IR cvc insert non tunneled DATE OF EXAM: 08/06/2016 9:19 AM COMPARISON: NONE HISTORY: Dialysis catheter. Fluoroscopy was provided to the referring clinician. See dictated report from surgery.
--- NOTE | 2016-08-06 15:28 | PCN ---
DATE OF PROCEDURE: PREOPERATIVE DIAGNOSIS: Acute ( ) with high potassium 6.7 with malfunction of cephalobrachial fistula. PROCEDURE: The patient was brought to the [facility], the right groin was prepped and draped in sterile manner; 1% lidocaine was infiltrated. Ultrasound-guided marking on the right femoral vein. Micropuncture guide was passed. A 4 E[place]orean dilator advanced. A guidewire was passed, checking the C-arm. After that, the dilator was ( ) over the guidewire. Then we placed a 28 cm dialysis catheter, right femoral approach with the free flow noted. Flushed with heparin saline and hep-locked and secured with 3-0 nylon. Patient tolerated the procedure well.
[2016-08-06] MEDS ORDERED: INSULIN GLARGINE 100 UNIT/ML 10 ML VIAL SQ ONE (16:40)
[2016-08-06 16:52] LABS: Glucose,Whole Blood 428 mg/dL (75-99)
[2016-08-06 20:06] LABS: Glucose,Whole Blood 489 mg/dL (75-99)
[2016-08-06] MEDS ORDERED: INSULIN NPH/REG INSULIN 70/30 300 UNIT/3 ML VIAL SQ ONE (20:19)
[2016-08-06] MEDS: HYDROcodone/APAP 5-325MG 1 EACH TAB PO PRN (20:46)
[2016-08-06] MEDS: FAMOTIDINE 20 MG TAB PO SCH (20:46)
--- NOTE | 2016-08-06 21:05 | PN ---
DATE OF SERVICE: 08/06/2016 This 36-year-old gentleman who was admitted with change in mental status and hypoglycemia, also had CHF acute exacerbation. Yesterday dialysis could not be done because of poor access to the graft and the patient became more short of breath. The patient became severely hyperkalemic and emergent temporary dialysis catheter placement was done in the groin and the patient received dialysis today. The patient feels slightly better. Cardiology and nephrology are following the patient closely. The hemoglobin is 6.7. PAST MEDICAL HISTORY: Reviewed. REVIEW OF SYSTEMS: CARDIOVASCULAR: No angina. RESPIRATORY: As mentioned earlier. GI As mentioned earlier. : No dysuria. NERVOUS SYSTEM: No numbness or weakness. Current medications are: 1. [place] 5 mg t.i.d. p.r.n. 2. Xanax 0.25 t.i.d. 3. Norvasc 10 mg. 4. Aspirin 81 mg. 5. Coreg 25 mg p.o. b.i.d. 6. Catapres 0.3 t.i.d. 8. Pepcid. 9. Iron sulfate. 10. Lasix 40 mg IV q.8. 11. Apresoline. 12. Advil. 13. Lantus. 14. Imdur. 15. Levaquin 500 mg daily. 16. Cozaar 100 mg daily. 17. Synthroid 175 mcg p.o. b.i.d. 18. Loniten 5 mg p.o. b.i.d. 19. Restoril 15 mg q.h.s. p.r.n. 20. Spiriva 1 puff daily. PHYSICAL EXAMINATION: The patient is alert and oriented x3. Pulse 75, blood pressure 157/78, respirations 18, temperature 97.1, pulse ox 94% on room air. HEENT: Conjunctivae pale. Oral mucosa moist. NECK: No jugular venous distention. No carotid bruit. No lymph node enlargement. CARDIOVASCULAR: S1 and S2. No S3, no S4. RESPIRATORY: Breath sounds diminished at the bases. A few scattered rhonchi and crackles. Expiratory wheezing also present. ABDOMEN: Soft, nontender. No mass palpable. LEGS: Minimal edema. NERVOUS SYSTEM: Diffusely weak. LABS: WBC 6.7, hemoglobin 6.7. Sodium 130, potassium 6.2, creatine kinase 7.26. ASSESSMENT: 1. Change in mental status and hypoglycemic with acute metabolic encephalopathy secondary to hypoglycemia present on admission. 2. Congestive heart failure acute exacerbation with ejection fraction unknown with fluid overload. 3. Severe hyperkalemia secondary to renal failure. 4. Anemia, normocytic anemia of chronic disease and renal failure, status post transfusion. 5. Hypoalbuminemia with mild to moderate protein calorie malnutrition. 6. Chronic renal failure, end-stage stage V on hemodialysis Wednesday, , Wednesday cycle. 7. Hyponatremia. 8. Status post temporary dialysis catheter insertion on the right groin because of poor axis. 9. Hyperkalemia history. 10. History diabetes mellitus type 2. 11. Increased AST, ALT with mild hepatitis of undetermined etiology. 12. Increased alkaline phosphatase. 13. Mild hypoalbuminemia. 14. Anemia, normocytic anemia of chronic medical disease. 15. History of chronic obstructive pulmonary disease. 16. History of gastroesophageal reflux disease. 17. Hypertension, essential. 18. Hypothyroidism. 19. History of nicotine dependence. 20. History of THC. 21. FULL CODE. RECOMMENDATIONS AND DISCUSSION: I recommend to continue the current medications, continue monitoring and symptomatic treatment. See orders for further details. Otherwise hepatitis panel is negative at this time. Will repeat LFTs, which is rather improving at this time. Other than that I would recommend continue with hemodialysis and potassium will be closely monitored. Low potassium diet. Continue the rest of the medications. Will increase the dose of Lantus to 18 units. Patient is allergic to Humalog. The exact etiology of once again of the history of hypoglycemia is unknown at this time. Will continue to monitor. Further recommendations to follow. Will check the TSH also. MTDD
[2016-08-06] MEDS: INSULIN GLARGINE 100 UNIT/ML 10 ML VIAL SQ SCH (21:25)
[2016-08-07] MEDS: LEVOTHYROXINE 75 MCG TAB PO SCH (06:09)
[2016-08-07] MEDS: FUROSEMIDE 10 MG/ML 4 ML VIAL IV SCH ×3 (06:09→21:48)
[2016-08-07 06:22] LABS: Glucose,Whole Blood 415 mg/dL (75-99)
[2016-08-07 06:31] LABS: Basophils # (A) 0.1 k/uL (0-0.2); Basophils % (A) 1 %; CH 30.7; CHCM 33.2; Eosinophils # (A) 0.2 k/uL (0-0.7); Eosinophils % (A) 4 %; HCT 22.6 % (39.0-53.0); HGB 7.4 gm/dL (13.0-17.5); Luc # (Auto) 0.17; Luc % (Auto) 3; Lymphocytes # (A) 0.7 k/uL (1.0-4.8); Lymphocytes % (A) 14 %; MCH 30.7 pg (25.0-35.0); MCV 93.1 fL (80.0-100.0); Monocytes # (A) 0.5 k/uL (0-1.0); Monocytes % (A) 10 %; Neutrophils # (A) 3.5 k/uL (1.3-7.7); Neutrophils % (A) 68 %; RBC 2.42 m/uL (4.30-5.90); RDW 15.6 % (11.5-15.5); WBC 5.2 k/uL (3.8-10.6); WBC (Perox) 5.43
[2016-08-07 06:47] LABS: Calcium 7.5 mg/dL (8.4-10.2); Potassium 5.4 mmol/L (3.5-5.1); Total Bilirubin 0.4 mg/dL (0.2-1.3); Total Protein 5.1 g/dL (6.3-8.2)
[2016-08-07] MEDS: TIOTROPIUM 18 MCG/PUFF INHALER INHALATION SCH (07:53)
--- NOTE | 2016-08-07 08:20 | P.PN ---
Subjective Patient is seen in follow-up for end-stage renal disease. Patient was maintained on hemodialysis on a Wednesday schedule in [place]. Etiology of his kidney disease is diabetic kidney disease. He has recently moved to [place]. He was admitted in the hospital and was discharged last Wednesday. When he left the hospital he did not go to dialysis as an outpatient and came to the hospital with fluid overload. He underwent hemodialysis yesterday. His AV fistula was malfunctioning and he received a femoral catheter. He is currently resting in bed. No vomiting or diarrhea. Dyspnea is improved. Denies chest pain. Vital signs are stable. General: The patient appeared well nourished and normally developed. HEENT: Head exam is unremarkable. Neck is without jugular venous distension. LUNGS: Lungs are clear to auscultation and percussion. Breath sounds decreased. HEART: Rate and Rhythm are regular. First and second heart sounds normal. No murmurs, rubs or gallops. ABDOMEN: Abdominal exam reveals normal bowel sounds. Non-tender and non- distended. No evidence of peritonitis. EXTREMITITES: 1+ edema. Objective - Vital Signs Vital signs: Vital Signs Temp 98.8 F 08/07/16 00:00 Pulse 126 H 08/07/16 04:00 Resp 18 08/07/16 04:00 BP 166/77 08/07/16 04:00 Pulse Ox 99 08/07/16 04:00 Intake & Output 08/06/16 08/07/16 08/07/16 18:59 06:59 18:59 Intake Total 948 100 Output Total 500 320 10 Balance 448 -220 -10 Weight 112 kg 116 kg Intake: IV 100 Sodium Chloride 0.9% 1, 100 000 ml @ 20 mls/hr IV . Q24H [facility] Rx#:[id number] Oral 638 Blood Product 310 Rc As-1 Unit 310 [id number] Output: Urine 500 320 Emesis 10 Other: Voiding Method Urinal # Voids 1 - Labs CBC & Chem 7: 08/07/16 05:49 08/07/16 05:49 Labs: Abnormal Lab Results - Last 24 Hours (Table) 08/05/16 08/05/16 08/06/16 Range/Units 09:32 09:32 09:00 RBC (4.30-5.90) m/uL Hgb (13.0-17.5) gm/dL Hct (39.0-53.0) % RDW (11.5-15.5) % Lymphocytes # (1.0-4.8) k/uL Sodium (137-145) mmol/L Potassium (3.5-5.1) mmol/L Chloride (98-107) mmol/L Carbon Dioxide (22-30) mmol/L BUN (9-20) mg/dL Creatinine (0.66-1.25) mg/dL Glucose (74-99) mg/dL POC Glucose (mg/dL) (75-99) mg/dL Calcium (8.4-10.2) mg/dL Phosphorus 7.3 H (2.5-4.5) mg/dL Iron 36 L (49-181) ug/dL TIBC 249 L (261-462) ug/dL % Saturation 14.5 L (20-50) % Alkaline Phosphatase (38-126) U/L Total Protein (6.3-8.2) g/dL Albumin (3.5-5.0) g/dL TSH 24.300 H (0.465-4.680) mIU/L Crossmatch See Detail 08/06/16 08/06/16 08/06/16 Range/Units 12:23 16:29 19:56 RBC (4.30-5.90) m/uL Hgb (13.0-17.5) gm/dL Hct (39.0-53.0) % RDW (11.5-15.5) % Lymphocytes # (1.0-4.8) k/uL Sodium (137-145) mmol/L Potassium (3.5-5.1) mmol/L Chloride (98-107) mmol/L Carbon Dioxide (22-30) mmol/L BUN (9-20) mg/dL Creatinine (0.66-1.25) mg/dL Glucose (74-99) mg/dL POC Glucose (mg/dL) 327 H 428 H 489 H (75-99) mg/dL Calcium (8.4-10.2) mg/dL Phosphorus (2.5-4.5) mg/dL Iron (49-181) ug/dL TIBC (261-462) ug/dL % Saturation (20-50) % Alkaline Phosphatase (38-126) U/L Total Protein (6.3-8.2) g/dL Albumin (3.5-5.0) g/dL TSH (0.465-4.680) mIU/L Crossmatch 08/07/16 08/07/16 08/07/16 Range/Units 05:49 05:49 06:14 RBC 2.42 L (4.30-5.90) m/uL Hgb 7.4 L (13.0-17.5) gm/dL Hct 22.6 L (39.0-53.0) % RDW 15.6 H (11.5-15.5) % Lymphocytes # 0.7 L (1.0-4.8) k/uL Sodium 127 L (137-145) mmol/L Potassium 5.4 H (3.5-5.1) mmol/L Chloride 93 L (98-107) mmol/L Carbon Dioxide 21 L (22-30) mmol/L BUN 72 H (9-20) mg/dL Creatinine 5.75 H* (0.66-1.25) mg/dL Glucose 411 H (74-99) mg/dL POC Glucose (mg/dL) 415 H (75-99) mg/dL Calcium 7.5 L (8.4-10.2) mg/dL Phosphorus (2.5-4.5) mg/dL Iron (49-181) ug/dL TIBC (261-462) ug/dL % Saturation (20-50) % Alkaline Phosphatase 223 H (38-126) U/L Total Protein 5.1 L (6.3-8.2) g/dL Albumin 2.4 L (3.5-5.0) g/dL TSH (0.465-4.680) mIU/L Crossmatch Assessment and Plan Plan: Assessment: #1. End-stage renal disease maintained on hemodialysis on a Wednesday schedule as an outpatient in [place]. He received a femoral catheter that was placed August 06. He has a AV fistula in the left upper extremity which is not functioning well and there appears to be a small hematoma. #2. Hyperkalemia secondary to chronic kidney disease. Improved postdialysis. Hyperglycemia also a contributing factor. His blood sugar this morning are over 400. #3. Anemia of chronic kidney disease. Status post blood transfusion yesterday. Hemoglobin 7.4 this morning. Iron deficiency present. #4. Insulin-dependent diabetes mellitus. Uncontrolled. #5. Hypervolemic hyponatremia. Hyperglycemia also a contributor factor. #6. Hypertension with chronic kidney disease. Controlled. #7. Fluid overload. Improved postdialysis. Plan: Hemodialysis again today with goal 3-4 L ultrafiltration. He may require another treatment tomorrow. Ferrlecit 125 mg IV daily for 3 days. First dose today. Maintain Aranesp. Add PhosLo 1 tablet 3 times daily with meals. Vascular surgery following. Will rest AV fistula for now. Permacath to be placed either today or tomorrow. fleet dispatch manager on board to help in setting up dialysis outpatient near [place].
[2016-08-07] MEDS: HEPARIN SODIUM,PORCINE 5,000 UNIT/ML 1 ML VIAL SQ SCH ×3 (08:54→23:58)
[2016-08-07] MEDS: ISOSORBIDE MONONITRATE ER 60 MG TAB.ER.24H PO SCH (08:55)
[2016-08-07] MEDS: hydrALAZINE HCL 50 MG TAB PO SCH ×3 (08:55→21:50)
[2016-08-07] MEDS: MINOXIDIL 2.5 MG TAB PO SCH ×2 (08:55→21:49)
[2016-08-07] MEDS: CARVEDILOL 12.5 MG TAB PO SCH ×2 (08:55→21:49)
[2016-08-07] MEDS: amLODIPine 10 MG TAB PO SCH (08:55)
[2016-08-07] MEDS: LOSARTAN 50 MG TAB PO SCH (08:55)
[2016-08-07] MEDS: cloNIDine HCL 0.1 MG TAB PO SCH ×3 (08:55→21:50)
[2016-08-07] MEDS: FERROUS SULFATE 325 MG TAB PO SCH ×3 (08:55→21:50)
[2016-08-07] MEDS: LEVOFLOXACIN 500 MG TAB PO SCH (08:55)
[2016-08-07] MEDS: ASPIRIN 81 MG CHEW PO SCH (08:56)
[2016-08-07] MEDS: SODIUM FERRIC GLUCONAT-SUCROSE 125 MG in SODIUM CHLORIDE 0.9% 100 ML IVPB SCH (08:56)
--- NOTE | 2016-08-07 10:43 | ECHOF ---
Referral Reason:chf MEASUREMENTS -------- HEIGHT: 160.0 cm WEIGHT: 111.6 kg BP: 140/78 IVSd: 1.7 cm (0.6 - 1.1) LVIDd: 5.2 cm (3.9 - 5.3) LVPWd: 1.6 cm (0.6 - 1.1) IVSs: 1.6 cm LVIDs: 3.5 cm LVPWs: 2.4 cm LAESV Index (A-L): 31.44 ml/m Ao Diam: 3.0 cm (2.0 - 3.7) AV Cusp: 2.5 cm (1.5 - 2.6) LA Diam: 4.5 cm (2.7 - 3.8) MV EXCURSION: 27.072 mm (> 18.000) MV EF SLOPE: 157 mm/s (70 - 150) EPSS: 0.7 cm MV E Max: 1.16 m/s MV DecT: 168 ms MV A Max: 0.75 m/s MV E/A Ratio: 1.55 RAP: 20.00 mmHg RVSP: 66.79 mmHg FINDINGS -------- Sinus rhythm. This was a technically good study. There is severe concentric left ventricular hypertrophy. Overall left ventricular systolic function is normal with, an EF between 55 - 60 %. The right ventricle is normal in size and function. LA is midly dilated 29-33ml/m2. RA appears enlarged. Aortic valve is trileaflet and is mildly thickened. The mitral valve leaflets are mildly thickened. Moderate mitral regurgitation is present. Moderate tricuspid regurgitation present. There is moderate to severe pulmonary hypertension. The right ventricular systolic pressure, as measured by Doppler, is 66.79mmHg. Trace/mild (physiologic) pulmonic regurgitation. The aortic root size is normal. The inferior vena cava is mildly dilated. There is a moderate, generalized pericardial effusion present. Moderate Pleural Effusion. CONCLUSIONS -------- 1. Sinus rhythm. 2. Moderate mitral regurgitation is present. 3. Moderate tricuspid regurgitation present. 4. There is moderate to severe pulmonary hypertension. 5. The right ventricular systolic pressure, as measured by Doppler, is 66.79mmHg. 6. Trace/mild (physiologic) pulmonic regurgitation. 7. The aortic root size is normal. 8. The inferior vena cava is mildly dilated. 9. There is a moderate, generalized pericardial effusion present. 10. Moderate Pleural Effusion. 11. This was a technically good study. 12. There is severe concentric left ventricular hypertrophy. 13. Overall left ventricular systolic function is normal with, an EF between 55 - 60 %. 14. The right ventricle is normal in size and function. 15. LA is midly dilated 29-33ml/m2. 16. RA appears enlarged. 17. Aortic valve is trileaflet and is mildly thickened. 18. The mitral valve leaflets are mildly thickened. NURSE CHARGE RN: Nan Yip RDCS
[2016-08-07] MEDS: CALCIUM ACETATE 667 MG CAP PO SCH ×3 (11:14→16:18)
[2016-08-07 11:41] LABS: Glucose,Whole Blood 354 mg/dL (75-99)
--- NOTE | 2016-08-07 14:07 | P.PN ---
Subjective This is a 36-year-old gentleman with history of hypertension, diabetes , end-stage renal disease on hemodialysis, GERD, hypothyroidism, continue dependence, marijuana use, who was brought to the hospital via EMS because of decreased responsiveness. Patient was recently in the hospital earlier this month with increased swelling in his lower extremities as well as associated shortness of breath. Patient has recently moved to this area and has not yet been established with the dialysis center. His blood glucose on EMS arrival was 40. Patient was given 2 Amp of glucose. The pressure on arrival here 214/ 121, heart rate in the 70s to 80s, 100% on room air 97.8 temperature. Chest x- ray suggested mild congestive heart failure. Cardiomegaly based on cardiac myopathy or pericardial effusion also suggested. EKG shows normal sinus rhythm with lateral T-wave inversion. HemoGlobin on admission 8.5, Potassium on admission 5.7, BUN on admission 90 creatinine 7.0, . AST on admission 143, ALT 75, alk phos 301, BNP level 90,600. Patient was initiated on IV Lasix in the emergency room. 08/07/2016 Patient seen and examined today. He underwent hemodialysis yesterday, AV fistula was found to be malfunctioning and patient received some oral catheter. Blood pressure today 130/60 with a heart rate in the 70s. Hemoglobin 7.4, platelet count 278, potassium 5.4, sodium 127, BUN 72, creatinine 5.7. Echocardiogram with Doppler study was performed which revealed an ejection fraction of 55-60%. From cardiology's perspective, we will follow this patient with you now on an as-needed basis only, please don't hesitate to call with any questions. Objective - Vital Signs Vital signs: Vital Signs Temp 97.6 F 08/07/16 12:13 Pulse 126 H 08/07/16 12:13 Resp 18 08/07/16 12:13 BP 172/92 08/07/16 12:13 Pulse Ox 98 08/07/16 12:13 Intake & Output 08/06/16 08/07/16 08/07/16 18:59 06:59 18:59 Intake Total 948 100 Output Total 500 320 10 Balance 448 -220 -10 Weight 112 kg 116 kg Intake: IV 100 Sodium Chloride 0.9% 1, 100 000 ml @ 20 mls/hr IV . Q24H [facility] Rx#:[id number] Oral 638 Blood Product 310 Rc As-1 Unit 310 [id number] Output: Urine 500 320 Emesis 10 Other: Voiding Method Urinal Urinal # Voids 1 - Exam PHYSICAL EXAMINATION: HEENT: Head is atraumatic, normocephalic. Pupils equal, round. Neck is supple. There is elevated jugular venous pressure. HEART EXAMINATION: Heart S1, S2 normal. No murmur or gallop heard. CHEST EXAMINATION: Lungs reveal crackles to posterior bases. No chest wall tenderness is noted on palpation or with deep breathing. ABDOMEN: Soft, obese, nontender. Bowel sounds are heard. No organomegaly noted. EXTREMITIES: 2+ peripheral pulses with 2+ evidence of peripheral edema and no calf tenderness noted. NEUROLOGIC patient is awake, alert and oriented -3. - Labs CBC & Chem 7: 08/07/16 05:49 08/07/16 05:49 Labs: Abnormal Lab Results - Last 24 Hours (Table) 08/05/16 08/06/16 08/06/16 Range/Units 09:32 16:29 19:56 RBC (4.30-5.90) m/uL Hgb (13.0-17.5) gm/dL Hct (39.0-53.0) % RDW (11.5-15.5) % Lymphocytes # (1.0-4.8) k/uL Sodium (137-145) mmol/L Potassium (3.5-5.1) mmol/L Chloride (98-107) mmol/L Carbon Dioxide (22-30) mmol/L BUN (9-20) mg/dL Creatinine (0.66-1.25) mg/dL Glucose (74-99) mg/dL POC Glucose (mg/dL) 428 H 489 H (75-99) mg/dL Calcium (8.4-10.2) mg/dL Alkaline Phosphatase (38-126) U/L Total Protein (6.3-8.2) g/dL Albumin (3.5-5.0) g/dL TSH 24.300 H (0.465-4.680) mIU/L 08/07/16 08/07/16 08/07/16 Range/Units 05:49 05:49 06:14 RBC 2.42 L (4.30-5.90) m/uL Hgb 7.4 L (13.0-17.5) gm/dL Hct 22.6 L (39.0-53.0) % RDW 15.6 H (11.5-15.5) % Lymphocytes # 0.7 L (1.0-4.8) k/uL Sodium 127 L (137-145) mmol/L Potassium 5.4 H (3.5-5.1) mmol/L Chloride 93 L (98-107) mmol/L Carbon Dioxide 21 L (22-30) mmol/L BUN 72 H (9-20) mg/dL Creatinine 5.75 H* (0.66-1.25) mg/dL Glucose 411 H (74-99) mg/dL POC Glucose (mg/dL) 415 H (75-99) mg/dL Calcium 7.5 L (8.4-10.2) mg/dL Alkaline Phosphatase 223 H (38-126) U/L Total Protein 5.1 L (6.3-8.2) g/dL Albumin 2.4 L (3.5-5.0) g/dL TSH (0.465-4.680) mIU/L 08/07/16 Range/Units 11:36 RBC (4.30-5.90) m/uL Hgb (13.0-17.5) gm/dL Hct (39.0-53.0) % RDW (11.5-15.5) % Lymphocytes # (1.0-4.8) k/uL Sodium (137-145) mmol/L Potassium (3.5-5.1) mmol/L Chloride (98-107) mmol/L Carbon Dioxide (22-30) mmol/L BUN (9-20) mg/dL Creatinine (0.66-1.25) mg/dL Glucose (74-99) mg/dL POC Glucose (mg/dL) 354 H (75-99) mg/dL Calcium (8.4-10.2) mg/dL Alkaline Phosphatase (38-126) U/L Total Protein (6.3-8.2) g/dL Albumin (3.5-5.0) g/dL TSH (0.465-4.680) mIU/L Assessment and Plan Plan: Assessment and plan #1 mental status changes with evidence of significant hypoglycemia #2 congestive heart failure, diastolic acute on chronic. #3 end-stage renal disease on hemodialysis #4 hyperkalemia #5 anemia #6 diabetes #7 abnormal liver functions, could be secondary to congestion, improving this morning. #8 COPD #9 hypertension, accelerated #10 hypothyroidism #11 nicotine dependence Plan From cardiology's perspective, we'll follow this patient with you now on an as- needed basis only, please don't hesitate to call with any questions. DNP note has been reviewed, I agree with a documented findings and plan of care. Patient was seen and examined.
[2016-08-07] MEDS ORDERED: HEPARIN SODIUM,PORCINE 5,000 UNIT/ML 1 ML VIAL ONE (14:30)
[2016-08-07] MEDS ORDERED: fentaNYL (PF) 50 MCG/ML 2 ML AMP ONE (14:40)
[2016-08-07] MEDS ORDERED: fentaNYL (PF) 50 MCG/ML 2 ML AMP IV ONE (14:45)
[2016-08-07 14:48] LABS: Hemoglobin A1C 7.1 % (4.2-6.1)
[2016-08-07] MEDS ORDERED: SODIUM CHLORIDE 0.9% 1,000 ML IV ONE (14:49)
[2016-08-07] MEDS ORDERED: LIDOCAINE 2% INJ 20 MG/ML SQ ONE (14:49)
[2016-08-07] MEDS ORDERED: HEPARIN SODIUM 1,000 UNIT/ML VIAL ONE (15:01)
--- NOTE | 2016-08-07 15:31 | IR ---
EXAMINATION TYPE: IR cvc insert central tunneled DATE OF EXAM: 08/07/2016 3:23 PM COMPARISON: NONE HISTORY: Dialysis catheter Fluoroscopy was provided to the referring clinician. See dictated report from surgery.
[2016-08-07] MEDS: SODIUM CHLORIDE 0.9% 1,000 ML IV SCH (16:13)
--- NOTE | 2016-08-07 16:22 | XR ---
EXAMINATION TYPE: XR chest 1V confirm line [facility] DATE OF EXAM: 08/07/2016 COMPARISON: Prior chest x-ray 05 Aug 2016 HISTORY: Status post central catheter placement TECHNIQUE: Single frontal view of the chest is obtained. FINDINGS: There is been interval placement of a right jugular central venous catheter, distal tip is overlying the superior vena cava level. There is no pneumothorax or pleural effusion. The heart is e nlarged. There is improvement in aeration within the lungs. IMPRESSION: No evident complication secondary to central venous catheter placement. Distal tip over the superior vena cava.
[2016-08-07 16:50] LABS: Glucose,Whole Blood 219 mg/dL (75-99)
--- NOTE | 2016-08-07 19:36 | PN ---
DATE OF SERVICE: 08/07/2016 This 36-year-old gentleman was admitted with CHF, acute exacerbation, mental status changes and hypoglycemia is being closely monitored at this time. The patient apparently had difficulty in access from the left AV graft. The patient underwent temporary dialysis catheter in the right femoral catheter, through which dialysis is being performed at this time. Three liters of ultrafiltration is being planned. The patient is being closely followed by Cardiology as well as Nephrology. New permanent dialysis catheter insertion is planned by Dr. Sanders. A chest x-ray done today, which I personally reviewed, showed some improvement in the CHF. The patient is being closely monitored at this time. The patient still has some cardiomegaly. A 2-D echo with Doppler was done at the time of admission which showed multiple valvular abnormalities, including moderate mitral regurgitation, moderate tricuspid regurgitation, moderate to severe pulmonary hypertension as well as moderate generalized pericardial effusion, moderate pleural effusion and severe concentric hypertrophy. LA was dilated, too. Past medical history reviewed. REVIEW OF SYSTEMS: CARDIOVASCULAR SYSTEM: As mentioned earlier. RESPIRATORY SYSTEM: As mentioned earlier. GI: As mentioned earlier. : As mentioned earlier. Current medications are reviewed and include: 1. [place] 5 mg t.i.d. p.r.n. 2. Ventolin 2.5 q.i.d. 3. Xanax 0.25 t.i.d. 4. Norvasc 10 mg p.o. daily. 5. Aspirin 81 mg daily. 6. PhosLo 667 t.i.d. 7. Coreg 25 mg p.o. b.i.d. 8. Catapres 0.3 t.i.d. 9. Aranesp 40 mg subcutaneously q.7 days. 10. Pepcid 20 mg p.o. daily. 11. Iron sulfate daily. 12. Lasix 40 mg IV q.8. 13. Heparin. 14. Apresoline. 15. Advil. 16. Lantus. 17. Imdur. 18. Levaquin. 19. Synthroid. 20. Cozaar. 21. Loniten. 22. Spiriva. PHYSICAL EXAMINATION: Patient is alert and oriented x3. Pulse is 126, blood pressure 170/90, respiratory rate 16, temperature 97.6, pulse ox 98% on room air. HEENT: Conjunctivae normal. NECK: No jugular venous distention. CARDIOVASCULAR SYSTEM: S1, S2 muffled. RESPIRATORY SYSTEM: Breath sounds diminished at the bases. A few scattered rhonchi and crackles. ABDOMEN: Soft, nontender. No mass palpable. LEGS: Bilateral leg edema. NERVOUS SYSTEM: Diffusely weak. LABS: WBC 5.2, hemoglobin 7.4. Sodium 127, potassium 5.4. Creatinine is 5.75. Accu-Cheks are noted. Calcium is 7.5. Albumin is 2.4. ASSESSMENT: 1. Change in mental status, hypoglycemia, with acute metabolic encephalopathy secondary to hypoglycemia, present on admission. 2. Congestive heart failure, acute exacerbation, with acute on chronic diastolic dysfunction with an ejection fraction of 55% to 60%. 3. Moderate mitral regurgitation, moderate tricuspid regurgitation, moderate to severe pulmonary hypertension on a two-dimensional echocardiogram. 4. Moderate pericardial effusion and moderate pleural effusion. 5. Severe hyperkalemia secondary to renal failure, present on admission. 6. Anemia, normocytic; anemia of chronic disease and renal failure, status post transfusion. 7. Hypoalbuminemia with mild to moderate protein-calorie malnutrition. 8. Chronic renal failure, stage V, on hemodialysis Wednesday, , Wednesday cycle. 9. Temporary dialysis catheter in the right femoral site. 10. Hyponatremia. 11. History of diabetes mellitus, type 2. 12. Increased AST, ALT with mild hepatitis of undetermined etiology. 13. Increased alkaline phosphatase. 14. Mild hypoalbuminemia. 15. Anemia, normocytic; anemia of chronic disease. 16. Chronic obstructive pulmonary disease. 17. Gastroesophageal reflux disease. 18. Hypertension, essential, history. 19. Hypothyroidism. 20. History of nicotine dependence. 21. History of tetrahydrocannabinol. 22. FULL CODE. RECOMMENDATIONS AND DISCUSSION: I recommend to continue with the current medications, continue with symptomatic treatment. Continue the hemodialysis. Monitor closely. The blood sugar has been elevated. Patient is ALLERGIC TO MULTIPLE INSULINS. At this time I would recommend 10 units of Lantus and continue to monitor. Otherwise, prognosis guarded because of multiple complex medical issues. Further recommendations to follow. See orders for further details. Permanent dialysis catheter insertion planned.
[2016-08-07 21:09] LABS: Glucose,Whole Blood 256 mg/dL (75-99)
[2016-08-07] MEDS: HYDROcodone/APAP 5-325MG 1 EACH TAB PO PRN (21:46)
[2016-08-07] MEDS: FAMOTIDINE 20 MG TAB PO SCH (21:49)
[2016-08-07] MEDS: INSULIN GLARGINE 100 UNIT/ML 10 ML VIAL SQ SCH (21:58)
[2016-08-07] MEDS: INSULIN NPH/REG INSULIN 70/30 300 UNIT/3 ML VIAL SQ SCH (21:59)
--- NOTE | 2016-08-07 22:01 | PCN ---
DATE OF PROCEDURE: PREOPERATIVE DIAGNOSIS: Acute chronic renal failure. PROCEDURE: Placement of the 28 cm dialysis catheter, ultrasound-guided, right internal jugular vein. PROCEDURE: Patient was brought to the animal laboratory helper. The right side of the chest and neck was prepped and draped in a sterile manner. This patient has a fistula in left arm, which is malfunctioning. Patient had a dialysis placed in the right femoral vein, which has been removed. Patient will be followed up in my office for further evaluation of the fistula. 1% lidocaine was infiltrated in the neck and chest area. Muscles were divided in jugular vein. Micropuncture guidewire was passed. A 4 Lebanese dilator was advanced on top the guidewire. After that, tunnel was created. Through the tunnel, we brought ( ) dialysis catheter. A regular guidewire was passed which was parked in the inferior vena cava. After that dilator was advanced and then sheath was advanced, through the sheath, we did a dialysis catheter. Tip of the catheter in the superior vena cava and atrium, flushed with heparin saline and hep-locked and secured with Vicryl and nylon. The patient tolerated the procedure well.
[2016-08-08 04:37] LABS: Glucose,Whole Blood 170 mg/dL (75-99)
[2016-08-08 06:01] LABS: Basophils # (A) 0.1 k/uL (0-0.2); Basophils % (A) 1 %; CH 30.3; CHCM 32.4; Eosinophils # (A) 0.4 k/uL (0-0.7); Eosinophils % (A) 6 %; HCT 22.9 % (39.0-53.0); HDW 2.71; HGB 7.2 gm/dL (13.0-17.5); Luc # (Auto) 0.23; Luc % (Auto) 4; Lymphocytes # (A) 0.7 k/uL (1.0-4.8); Lymphocytes % (A) 12 %; MCH 29.4 pg (25.0-35.0); MCHC 31.3 g/dL (31.0-37.0); Monocytes # (A) 0.6 k/uL (0-1.0); Monocytes % (A) 9 %; Neutrophils # (A) 4.3 k/uL (1.3-7.7); Neutrophils % (A) 69 %; RBC 2.44 m/uL (4.30-5.90); RDW 15.6 % (11.5-15.5); WBC 6.2 k/uL (3.8-10.6); WBC (Perox) 6.14
[2016-08-08] MEDS: FUROSEMIDE 10 MG/ML 4 ML VIAL IV SCH ×3 (06:07→20:44)
[2016-08-08 06:08] LABS: Calcium 7.9 mg/dL (8.4-10.2); Potassium 5.2 mmol/L (3.5-5.1); Total Bilirubin 0.4 mg/dL (0.2-1.3); Total Protein 5.2 g/dL (6.3-8.2)
[2016-08-08] MEDS: LEVOTHYROXINE 75 MCG TAB PO SCH (06:08)
[2016-08-08] MEDS: CALCIUM ACETATE 667 MG CAP PO SCH ×3 (06:58→17:53)
[2016-08-08 07:01] LABS: Glucose,Whole Blood 125 mg/dL (75-99)
[2016-08-08] MEDS: cloNIDine HCL 0.1 MG TAB PO SCH ×3 (08:49→20:45)
[2016-08-08] MEDS: HEPARIN SODIUM,PORCINE 5,000 UNIT/ML 1 ML VIAL SQ SCH ×3 (08:49→23:56)
[2016-08-08] MEDS: LEVOFLOXACIN 500 MG TAB PO SCH (08:49)
[2016-08-08] MEDS: ISOSORBIDE MONONITRATE ER 60 MG TAB.ER.24H PO SCH (08:50)
[2016-08-08] MEDS: amLODIPine 10 MG TAB PO SCH (08:50)
[2016-08-08] MEDS: LOSARTAN 50 MG TAB PO SCH (08:50)
[2016-08-08] MEDS: SODIUM FERRIC GLUCONAT-SUCROSE 125 MG in SODIUM CHLORIDE 0.9% 100 ML IVPB SCH (08:50)
[2016-08-08] MEDS: MINOXIDIL 2.5 MG TAB PO SCH ×2 (08:50→20:45)
[2016-08-08] MEDS: CARVEDILOL 12.5 MG TAB PO SCH ×2 (08:50→20:44)
[2016-08-08] MEDS: ASPIRIN 81 MG CHEW PO SCH (08:50)
[2016-08-08] MEDS: hydrALAZINE HCL 50 MG TAB PO SCH ×3 (08:50→20:45)
[2016-08-08] MEDS: FERROUS SULFATE 325 MG TAB PO SCH ×3 (08:50→20:45)
[2016-08-08] MEDS: INSULIN NPH/REG INSULIN 70/30 300 UNIT/3 ML VIAL SQ SCH ×2 (08:50→20:46)
[2016-08-08] MEDS: TIOTROPIUM 18 MCG/PUFF INHALER INHALATION SCH (09:07)
[2016-08-08] MEDS: SODIUM CHLORIDE 0.9% 1,000 ML IV SCH (12:06)
[2016-08-08 12:20] LABS: Glucose,Whole Blood 103 mg/dL (75-99)
--- NOTE | 2016-08-08 16:29 | PN ---
Patient is seen for followup for end-stage renal disease. He was admitted to the hospital with fluid overload, having missed at least 3 treatments of dialysis as outpatient. The patient has had about 8 L of ultrafiltration. He has had 2 consecutive treatments. His volume status is better. Initially he had femoral catheter and he has had right IJ Perm-A-Cath placed this morning. He is tentatively scheduled to be started at the [facility] on a Wednesday, , Wednesday schedule; however, there was no final insurance approval yet. Patient was dialyzed yesterday, which was Wednesday and he is due for his next treatment as inpatient on Wednesday. It appears that patient will be hospitalized until Wednesday when his ( ) placement and time is obtained. On examination, blood pressure is 142/65, heart rate 76 per minute. He is afebrile. EXAMINATION OF THE HEART: S1 and S2. EXAMINATION OF THE LUNGS: Bilateral breath sounds are heard. ABDOMEN: Soft, nontender. Examination of lower extremities shows edema 2+ bilaterally. [employer] exam is grossly intact. Labs show sodium 131, potassium 5.2. Hemoglobin was 7.2 g/dL, creatinine 5.09. ASSESSMENT: 1. End-stage renal disease on hemodialysis, to start on a Wednesday, , Wednesday schedule at [facility], but awaiting final insurance approval. The patient will be dialyzed here in the hospital on Wednesday as long as his potassium remains within range for the next couple of days. 2. Anemia. No active bleeding noted, most likely anemia of chronic disease. Patient has not received erythrocyte stimulating agent for more than a week prior to admission. 3. Volume overload, currently improved. 4. Hypertension, fairly stable. PLAN: Continue Aranesp. His next dialysis will be scheduled for Wednesday as inpatient and currently awaiting final approval to start outpatient treatment at [facility] on a Wednesday, , Wednesday schedule.
[2016-08-08 16:57] LABS: Glucose,Whole Blood 84 mg/dL (75-99)
[2016-08-08] MEDS: FAMOTIDINE 20 MG TAB PO SCH (20:45)
[2016-08-08] MEDS: INSULIN GLARGINE 100 UNIT/ML 10 ML VIAL SQ SCH (21:04)
[2016-08-08 21:30] LABS: Glucose,Whole Blood 110 mg/dL (75-99)
[2016-08-08] MEDS: HYDROcodone/APAP 5-325MG 1 EACH TAB PO PRN (23:55)
[2016-08-09] MEDS: FUROSEMIDE 10 MG/ML 4 ML VIAL IV SCH ×3 (04:05→20:53)
[2016-08-09 06:11] LABS: Glucose,Whole Blood 73 mg/dL (75-99)
[2016-08-09 06:18] LABS: Basophils # (A) 0.1 k/uL (0-0.2); Basophils % (A) 1 %; CH 30.1; CHCM 31.9; Eosinophils # (A) 0.3 k/uL (0-0.7); Eosinophils % (A) 6 %; HCT 22.5 % (39.0-53.0); HDW 2.62; HGB 7.1 gm/dL (13.0-17.5); Hypochromasia Slight; Luc # (Auto) 0.24; Luc % (Auto) 4; Lymphocytes # (A) 0.6 k/uL (1.0-4.8); Lymphocytes % (A) 11 %; MCHC 31.7 g/dL (31.0-37.0); MCV 94.8 fL (80.0-100.0); Mean Platelet Volume 6.7; Monocytes # (A) 0.7 k/uL (0-1.0); Monocytes % (A) 12 %; Neutrophils # (A) 3.8 k/uL (1.3-7.7); Neutrophils % (A) 66 %; RBC 2.37 m/uL (4.30-5.90); RDW 15.5 % (11.5-15.5); WBC 5.8 k/uL (3.8-10.6); WBC (Perox) 5.76
[2016-08-09 06:32] LABS: Calcium 8.1 mg/dL (8.4-10.2); Potassium 5.7 mmol/L (3.5-5.1); Total Bilirubin 0.2 mg/dL (0.2-1.3)
[2016-08-09] MEDS: HYDROcodone/APAP 5-325MG 1 EACH TAB PO PRN (06:35)
[2016-08-09] MEDS: LEVOTHYROXINE 75 MCG TAB PO SCH (06:38)
[2016-08-09] MEDS: CALCIUM ACETATE 667 MG CAP PO SCH ×3 (06:38→16:27)
[2016-08-09] MEDS: CARVEDILOL 12.5 MG TAB PO SCH ×2 (08:17→20:54)
[2016-08-09] MEDS: SODIUM FERRIC GLUCONAT-SUCROSE 125 MG in SODIUM CHLORIDE 0.9% 100 ML IVPB SCH (08:18)
[2016-08-09] MEDS: ASPIRIN 81 MG CHEW PO SCH (08:18)
[2016-08-09] MEDS: MINOXIDIL 2.5 MG TAB PO SCH ×2 (08:18→20:55)
[2016-08-09] MEDS: FERROUS SULFATE 325 MG TAB PO SCH ×3 (08:18→21:03)
[2016-08-09] MEDS: LOSARTAN 50 MG TAB PO SCH (08:18)
[2016-08-09] MEDS: amLODIPine 10 MG TAB PO SCH (08:18)
[2016-08-09] MEDS: ISOSORBIDE MONONITRATE ER 60 MG TAB.ER.24H PO SCH (08:18)
[2016-08-09] MEDS: hydrALAZINE HCL 50 MG TAB PO SCH ×3 (08:18→21:03)
[2016-08-09] MEDS: HEPARIN SODIUM,PORCINE 5,000 UNIT/ML 1 ML VIAL SQ SCH ×3 (08:18→23:18)
[2016-08-09] MEDS: cloNIDine HCL 0.1 MG TAB PO SCH ×3 (08:18→21:03)
[2016-08-09] MEDS: INSULIN NPH/REG INSULIN 70/30 300 UNIT/3 ML VIAL SQ SCH ×2 (08:19→20:54)
[2016-08-09] MEDS: TIOTROPIUM 18 MCG/PUFF INHALER INHALATION SCH (08:22)
--- NOTE | 2016-08-09 10:25 | PN ---
DATE OF SERVICE: 08/08/2016 This 36-year-old gentleman who was admitted with CHF acute exacerbation, also had acute renal failure. The patient had multiple dialysis catheter insertions because of lack of maturity on the left AV graft. The patient had temporary dialysis catheter inserted in the right groin. Currently, the patient has Permacath present on the right neck. However, the patient had significant problems arranging outpatient dialysis because since the patient is between hospital to hospital an outpatient dialysis program has not been arranged and insurance approval is pending at this time. The patient is being closely monitored. The patient is short of breath. PAST MEDICAL HISTORY: Reviewed. REVIEW OF SYSTEMS: CARDIOVASCULAR: As mentioned earlier. RESPIRATORY: As mentioned earlier. GI: No nausea or vomiting. GENITOURINARY: No dysuria. CENTRAL NERVOUS SYSTEM: No numbness or weakness. Current Medications are: 1. [place] 5 mg t.i.d. p.r.n. 2. Ventolin q.i.d. p.r.n. 3. Xanax 0.25 t.i.d. 4. Norvasc 10 mg daily. 5. Aspirin 81 mg. 6. PhosLo 667 t.i.d. 8. Iron sulfate 320 mg daily. 9. Lasix 40 mg IV q.8. 10. Heparin 5000 subcu b.i.d. 11. Advil. 12. Lantus. 13. Imdur. 14. Synthroid. 15. Cozaar. 17. Restoril. 18. Spiriva. PHYSICAL EXAM: Patient is alert and oriented times three. Pulse 74. Blood pressure 150/74, respiratory rate 16, temperature 97.6, pulse 98% on room air. HEENT: Conjunctivae normal. Oral mucosa moist. NECK: No jugular venous distention. No carotid bruit. No lymph node enlargement. CARDIOVASCULAR: S1, S2. No S3, no S4. RESPIRATORY: Breath sounds diminished at the bases. Bilateral scattered rhonchi, crackles. ABDOMEN: Soft, nontender. Legs: Bilateral leg edema. No swelling. Nervous system: Diffusely weak. LABS: WBC 6.8, hemoglobin 7.7, sodium 130, potassium 5.2. ASSESSMENT: 1. Change in mental status, hypoglycemia with acute metabolic encephalopathy secondary to hypoglycemia present on admission. 2. Congestive heart failure acute exacerbation with acute on chronic diastolic dysfunction, ejection fraction 50 to 60% and moderate mitral regurgitation, moderate tricuspid regurgitation, moderate severe pulmonary hypertension on 2-D echo. 3. Moderate pericardial effusion with moderate pleural effusion. 4. Severe hypokalemia secondary to renal failure, present on admission. 5. Anemia, normocytic anemia of chronic disease and renal failure, status post transfusion. 6. Hypoalbuminemia with mild to moderate protein calorie malnutrition. 7. Chronic renal failure, stage V on hemodialysis, Wednesday, , Wednesday cycle. 8. Temporary dialysis catheter in the right femoral site. 9. Hyponatremia. 10. History of diabetes mellitus type 2. 11. Increased AST, ALT with mild hepatitis of undetermined etiology. 12. Increased alkaline phosphatase. 13. Mild hypoalbuminemia. 14. Anemia, normocytic anemia of chronic disease. 15. Chronic obstructive pulmonary disease. 16. Gastroesophageal reflux disease. 17. Hypertension, essential, history. 18. Hypothyroidism. 19. History of nicotine dependence. 20. History of THC. 21. FULL CODE. RECOMMENDATIONS AND DISCUSSION: Recommend to continue current medications. Continue with monitoring. Symptomatic treatment. Otherwise at this time, I recommend to monitor closely. I recommend continue hemodialysis and work with egg caser to arrange home dialysis program to ensure compliance. Otherwise prognosis is guarded because of multiple complex medical issues. Further recommendations to follow. MTDD
[2016-08-09] MEDS: SODIUM CHLORIDE 0.9% 1,000 ML IV SCH (11:43)
[2016-08-09 12:31] LABS: Glucose,Whole Blood 107 mg/dL (75-99)
--- NOTE | 2016-08-09 14:20 | PN ---
Patient is seen for follow-up for end-stage renal disease and volume overload, complaining of some shortness of breath and his potassium was noted to be 5.7 mg/L. Patient was initially scheduled for treatment tomorrow; however in view of his volume overload and hyperkalemia, I will arrange for treatment today. Patient is waiting for final approval from insurance regarding his outpatient placement at [facility] on a Wednesday, , Wednesday schedule. On examination, the patient is currently comfortable. He is sitting up in a bedside chair. He has significant scrotal edema. Blood pressure is 147/68, heart rate 67 per minute. He is afebrile. Examination of the heart S1 and S2. Examination of the lungs, decreased breath sounds in bases. ABDOMEN: Soft, morbidly obese with abdominal wall edema. Examination of lower extremities shows edema 3+ bilaterally with scrotal edema noted as well. Labs show sodium 129, potassium 5.7, BUN 71, serum creatinine 5.8. Hemoglobin was at 7.1 g/dL. ASSESSMENT: 1. End-stage renal disease newly moved from [place] to [facility]. Currently patient resides in [place]. He is set up for outpatient dialysis at the [facility]; however, we are awaiting for final insurance approval, which will be not until Wednesday. 2. Volume overload, arrange for treatment today and then patient is scheduled for hemodialysis again tomorrow. 3. Hyperkalemia. Expect improvement with dialysis. 4. Anemia with no active bleeding noted. Patient is maintained on Aranesp. PLAN: Hemodialysis today and in the a.m. Maintain Aranesp.
[2016-08-09 17:04] LABS: Glucose,Whole Blood 98 mg/dL (75-99)
[2016-08-09] MEDS: FAMOTIDINE 20 MG TAB PO SCH (20:54)
[2016-08-09] MEDS: INSULIN GLARGINE 100 UNIT/ML 10 ML VIAL SQ SCH (20:54)
[2016-08-09 21:43] LABS: Glucose,Whole Blood 170 mg/dL (75-99)
[2016-08-10] MEDS: FUROSEMIDE 10 MG/ML 4 ML VIAL IV SCH ×3 (04:01→20:50)
[2016-08-10] MEDS: LEVOTHYROXINE 75 MCG TAB PO SCH (06:03)
[2016-08-10 06:25] LABS: Calcium 8.1 mg/dL (8.4-10.2); Potassium 5.7 mmol/L (3.5-5.1); Total Bilirubin 0.3 mg/dL (0.2-1.3); Total Protein 4.9 g/dL (6.3-8.2)
[2016-08-10 06:33] LABS: Aty Lym Flag Slight; CH 30.4; CHCM 32.9; HCT 21.9 % (39.0-53.0); HGB 7.2 gm/dL (13.0-17.5); MCH 30.7 pg (25.0-35.0); MCHC 33.1 g/dL (31.0-37.0); MCV 92.9 fL (80.0-100.0); Mean Platelet Volume 7.3; RBC 2.35 m/uL (4.30-5.90); RDW 15.3 % (11.5-15.5); WBC 5.7 k/uL (3.8-10.6); WBC (Perox) 6.26
[2016-08-10] MEDS: CALCIUM ACETATE 667 MG CAP PO SCH ×3 (06:33→17:31)
[2016-08-10 06:46] LABS: Glucose,Whole Blood 91 mg/dL (75-99)
[2016-08-10 07:06] LABS: Add Differential Manual Differential
[2016-08-10 07:14] LABS: Nucleated Red Blood Cells 0 /100 WBC (0-0); Total Cells Counted 100
[2016-08-10 07:16] LABS: Manual Review Performed
[2016-08-10] MEDS: SODIUM FERRIC GLUCONAT-SUCROSE 125 MG in SODIUM CHLORIDE 0.9% 100 ML IVPB SCH (08:03)
[2016-08-10] MEDS: MINOXIDIL 2.5 MG TAB PO SCH ×2 (08:03→20:49)
[2016-08-10] MEDS: cloNIDine HCL 0.1 MG TAB PO SCH ×3 (08:03→20:49)
[2016-08-10] MEDS: HEPARIN SODIUM,PORCINE 5,000 UNIT/ML 1 ML VIAL SQ SCH ×3 (08:03→23:51)
[2016-08-10] MEDS: INSULIN NPH/REG INSULIN 70/30 300 UNIT/3 ML VIAL SQ SCH ×3 (08:04→21:44)
[2016-08-10] MEDS: LOSARTAN 50 MG TAB PO SCH (08:04)
[2016-08-10] MEDS: FERROUS SULFATE 325 MG TAB PO SCH ×3 (08:04→20:49)
[2016-08-10] MEDS: CARVEDILOL 12.5 MG TAB PO SCH ×2 (08:04→20:48)
[2016-08-10] MEDS: amLODIPine 10 MG TAB PO SCH (08:04)
[2016-08-10] MEDS: hydrALAZINE HCL 50 MG TAB PO SCH ×3 (08:04→20:50)
[2016-08-10] MEDS: ISOSORBIDE MONONITRATE ER 60 MG TAB.ER.24H PO SCH (08:04)
[2016-08-10] MEDS: ASPIRIN 81 MG CHEW PO SCH (08:04)
[2016-08-10] MEDS: TIOTROPIUM 18 MCG/PUFF INHALER INHALATION SCH (08:34)
--- NOTE | 2016-08-10 10:43 | PN ---
DATE OF SERVICE: 08/09/2016 This 36-year-old gentleman who was admitted with CHF acute exacerbation, also had renal failure also. Peripheral IV access for dialysis has been retained but outpatient dialysis plan is still pending. No chest pain or palpitations. No fever. On exam, alert and oriented x3. Pulse 67, blood pressure 130/60, respirations 16, temperature 98.4, pulse ox 94% on room air. HEENT: Conjunctivae normal. CARDIOVASCULAR: S1 and S2 muffled. LUNGS: Breath sounds diminished at the bases. Few rhonchi. NO crackles. ABDOMEN: Soft, nontender. EXTREMITIES: Legs no edema. LABS: Sodium 120, potassium 5.6, WBC 5.4, hemoglobin 7.1 and creatinine is 5.80. ASSESSMENT: 1. Change in mental status, hypoglycemia with acute metabolic encephalopathy secondary to hyperglycemia on admission. 2. Congestive heart failure, acute exacerbation, acute on chronic diastolic dysfunction, ejection fraction 55% to 60% with moderate regurgitation, moderate tricuspid regurgitation, moderate severe pulmonary hypertension on 2-D echo. 3. Moderate pericardial effusion with moderate pleural effusion. 4. Severe hyperkalemia secondary to renal failure, present on admission. 5. Anemia, normocytic anemia of chronic disease and renal failure, status post transfusion. 6. Hypoalbuminemia with mild to moderate protein calorie malnutrition. 7. Chronic renal failure, stage 5, on hemodialysis Wednesday, , Wednesday cycle. 8. Temporary dialysis at the right frontal right site. 9. Hyponatremia. 10. History of diabetes type 2. 11. Increased AST, ALT, with mild hepatitis undetermined etiology. 12. Increased alkaline phosphatase. 13. Mild hypoalbuminemia. 14. Anemia, normocytic anemia of chronic disease. 15. Chronic obstructive pulmonary disease. 16. Gastroesophageal reflux disease. 17. Hypertension, essential history. 18. Hypothyroidism. 19. History of nicotine dependence. 20. History of THC. 21. Full code. RECOMMENDATIONS AND DISCUSSION: Continue current medications, continue with symptomatic treatment. Otherwise at this time I would recommend continue with current medications. Dr. Barrett is following the patient closely. manager energy and director of social work to work on outpatient arrangements. is being arranged today. Further recommendations to follow. Please see orders for further details. Guarded prognosis. Further recommendations to follow. MTDD
[2016-08-10 11:45] LABS: Glucose,Whole Blood 137 mg/dL (75-99)
[2016-08-10] MEDS ORDERED: HEPARIN SODIUM,PORCINE 5,000 UNIT/ML 1 ML VIAL ONE (14:20)
[2016-08-10] MEDS: SODIUM CHLORIDE 0.9% 1,000 ML IV SCH (14:27)
--- NOTE | 2016-08-10 15:11 | PN ---
Patient is seen for follow-up for end-stage renal disease and volume overload. He is currently seen on dialysis, tolerating his treatment very well. On examination, blood pressure is 136/65, heart rate 73 per minute. He is afebrile. Examination shows significant edema bilateral lower extremities, 2+ to 3+ with scrotal edema noted as well. Examination of the heart S1 and S2. Examination of the lungs: Bilateral breath sounds are heard. ABDOMEN: Soft, nontender. EDUCATIONAL THERAPIST examination is grossly intact. Labs show potassium 5.7, sodium 131 today. ASSESSMENT: 1. End-stage renal disease on hemodialysis, the patient will be scheduled on a Wednesday, , Wednesday schedule as outpatient at [facility]; however, we are waiting for final insurance approval, which will be obtained, most likely tomorrow. We have him on the schedule for dialysis again for tomorrow. 2. Volume overload. Continue to maintain UF of about 4 liters as tolerated with every treatment. 3. Hyperkalemia. Expect improvement with hemodialysis today. Patient should be maintained on low potassium diet. PLAN: Repeat dialysis tomorrow. Possible discharge tomorrow. Awaiting outpatient placement.
[2016-08-10 17:08] LABS: Glucose,Whole Blood 88 mg/dL (75-99)
[2016-08-10 20:49] LABS: Glucose,Whole Blood 139 mg/dL (75-99)
[2016-08-10] MEDS: FAMOTIDINE 20 MG TAB PO SCH (20:49)
[2016-08-10] MEDS: INSULIN GLARGINE 100 UNIT/ML 10 ML VIAL SQ SCH (20:50)
[2016-08-10] MEDS: HYDROcodone/APAP 5-325MG 1 EACH TAB PO PRN (21:44)
[2016-08-11] MEDS: FUROSEMIDE 10 MG/ML 4 ML VIAL IV SCH ×2 (04:07→12:05)
[2016-08-11 04:11] VITALS: PULSE 73
[2016-08-11] MEDS: LEVOTHYROXINE 75 MCG TAB PO SCH (06:16)
--- NOTE | 2016-08-11 07:17 | PN ---
DATE OF SERVICE: 08/10/2016 This 36-year-old gentleman was admitted with congestive heart failure acute exacerbation is being closely monitored. Patient also has renal failure and has been dialyzed. Paperwork for outpatient follow-up is being arranged at this time. No chest pain, no palpitations. No fever. Patient is receiving dialysis with 3.5 liters ultrafiltration. On exam, alert and oriented x3. Pulse 73, blood pressure 130/65, respirations 16, temperature 97.6, pulse ox 98% on room air. HEENT: Conjunctivae normal. NECK: No jugular venous distention. CARDIOVASCULAR: S1 and S2. RESPIRATORY: Breath sounds diminished at the bases. A few scattered rhonchi and crackles. ABDOMEN: Soft, nontender. LEGS: No edema, no swelling. NERVOUS SYSTEM: No focal deficits. LABS: WBC 5.7, hemoglobin 7.7, sodium 130, potassium 5.7. ASSESSMENT: 1. Change in mental status, hypoglycemia with acute metabolic encephalopathy secondary to hypoglycemia, present on admission. 2. Congestive heart failure acute exacerbation with acute on chronic diastolic dysfunction, ejection fraction 50% to 60% with moderate mild regurgitation, moderate tricuspid regurgitation, moderate severe pulmonary hypertension on the 2-D echo. 3. Moderate pericardial effusion with moderate pleural effusion. 4. Severe hyperkalemia secondary to renal failure, present on admission. 5. Anemia, normocytic anemia, anemia of chronic disease with renal failure, status post transfusions. 6. Hypoalbuminemia with mild to moderate protein calorie malnutrition. 7. Chronic renal failure, stage V, on hemodialysis Wednesday, , Wednesday cycle. 8. Temporary dialysis on the right femoral site. 9. Hyponatremia. 10. History of diabetes type 2. 11. Increased AST, ALT with mild hepatitis of undetermined etiology. 12. Increased alkaline phosphatase. 13. Chronic obstructive pulmonary disease. 14. Gastroesophageal reflux disease. 15. Hypertension, essential. 16. Hypothyroidism. 17. History of nicotine dependence. 18. History of THC. 19. FULL CODE. RECOMMENDATIONS AND DISCUSSION: I recommend to continue current medications and symptomatic treatment. Otherwise, at this time, I will monitor the patient closely. The 2-D echo was done by Cardiology a couple of days ago, which showed moderate generalized pericardial effusion. A chest x-ray was done 2 days ago. Prognosis guarded because of the multiple complex medical issues. Further recommendations to follow.
[2016-08-11 07:25] LABS: Glucose,Whole Blood 103 mg/dL (75-99)
[2016-08-11 08:49] LABS: Basophils % (A) 1 %; CH 30.5; CHCM 33.3; Eosinophils # (A) 0.4 k/uL (0-0.7); Eosinophils % (A) 7 %; HDW 2.62; HGB 7.6 gm/dL (13.0-17.5); Luc # (Auto) 0.28; Luc % (Auto) 4; Lymphocytes # (A) 0.8 k/uL (1.0-4.8); Lymphocytes % (A) 12 %; MCH 30.5 pg (25.0-35.0); MCV 92.2 fL (80.0-100.0); Mean Platelet Volume 8.6; Monocytes # (A) 0.9 k/uL (0-1.0); Monocytes % (A) 13 %; Neutrophils # (A) 4.1 k/uL (1.3-7.7); Neutrophils % (A) 63 %; RBC 2.49 m/uL (4.30-5.90); RDW 15.7 % (11.5-15.5); WBC 6.5 k/uL (3.8-10.6); WBC (Perox) 6.82
[2016-08-11] MEDS: HEPARIN SODIUM,PORCINE 5,000 UNIT/ML 1 ML VIAL SQ SCH ×2 (08:52→18:06)
[2016-08-11] MEDS: CALCIUM ACETATE 667 MG CAP PO SCH ×3 (08:52→18:06)
[2016-08-11] MEDS: amLODIPine 10 MG TAB PO SCH (08:52)
[2016-08-11] MEDS: ASPIRIN 81 MG CHEW PO SCH (08:53)
[2016-08-11] MEDS: cloNIDine HCL 0.1 MG TAB PO SCH ×2 (08:53→18:05)
[2016-08-11] MEDS: CARVEDILOL 12.5 MG TAB PO SCH (08:53)
[2016-08-11] MEDS: hydrALAZINE HCL 50 MG TAB PO SCH ×2 (08:54→18:05)
[2016-08-11] MEDS: FERROUS SULFATE 325 MG TAB PO SCH ×2 (08:54→18:05)
[2016-08-11] MEDS: MINOXIDIL 2.5 MG TAB PO SCH (08:55)
[2016-08-11] MEDS: LOSARTAN 50 MG TAB PO SCH (08:55)
[2016-08-11] MEDS: INSULIN NPH/REG INSULIN 70/30 300 UNIT/3 ML VIAL SQ SCH (08:55)
[2016-08-11] MEDS: ISOSORBIDE MONONITRATE ER 60 MG TAB.ER.24H PO SCH (08:55)
[2016-08-11 09:44] VITALS: BP 133/77; RESP 20; TEMP 97.5
--- NOTE | 2016-08-11 10:02 | P.PN ---
Subjective Patient is seen in follow-up for end-stage renal disease. He was maintained on hemodialysis on a Wednesday schedule and [place]. He recently moved to [place]. He is being set up for dialysis as an outpatient in [place]. Currently resting in bed. Denies chest pain or shortness of breath. No vomiting or diarrhea. He underwent hemodialysis yesterday and is scheduled to undergo another treatment today. Vital signs are stable. General: The patient appeared well nourished and normally developed. HEENT: Head exam is unremarkable. Neck is without jugular venous distension. LUNGS: Lungs are clear to auscultation and percussion. Breath sounds decreased. HEART: Rate and Rhythm are regular. First and second heart sounds normal. No murmurs, rubs or gallops. ABDOMEN: Abdominal exam reveals normal bowel sounds. Non-tender and non- distended. No evidence of peritonitis. EXTREMITITES: 1+ edema. Objective - Vital Signs Vital signs: Vital Signs Temp 97.5 F L 08/11/16 07:00 Pulse 73 08/11/16 08:00 Resp 20 08/11/16 08:00 BP 133/77 08/11/16 07:00 Pulse Ox 99 08/11/16 07:00 Intake & Output 08/10/16 08/11/16 08/11/16 18:59 06:59 18:59 Intake Total 200 Output Total 200 200 Balance 0 -200 Weight 107 kg 107 kg Intake: IV 200 Sodium Chloride 0.9% 1, 200 000 ml @ 20 mls/hr IV . Q24H CHRIS Rx#:[id number] Output: Urine 200 200 Other: Voiding Method Urinal Urinal Urinal # Voids 0 - Labs CBC & Chem 7: 08/11/16 06:57 08/10/16 05:39 Labs: Abnormal Lab Results - Last 24 Hours (Table) 08/10/16 08/10/16 08/11/16 Range/Units 11:36 20:27 06:57 RBC 2.49 L (4.30-5.90) m/uL Hgb 7.6 L (13.0-17.5) gm/dL Hct 23.0 L (39.0-53.0) % RDW 15.7 H (11.5-15.5) % Lymphocytes # 0.8 L (1.0-4.8) k/uL POC Glucose (mg/dL) 137 H 139 H (75-99) mg/dL 08/11/16 Range/Units 07:23 RBC (4.30-5.90) m/uL Hgb (13.0-17.5) gm/dL Hct (39.0-53.0) % RDW (11.5-15.5) % Lymphocytes # (1.0-4.8) k/uL POC Glucose (mg/dL) 103 H (75-99) mg/dL Assessment and Plan Plan: Assessment: #1. End-stage renal disease maintained on hemodialysis on a Wednesday schedule as an outpatient in [place]. He received a femoral catheter that was placed August 06 and subsequently discontinued after right IJ permacath placement. He has a AV fistula in the left upper extremity which is not functioning well and there appears to be a small hematoma. #2. Hyperkalemia secondary to chronic kidney disease. Expect improvement postdialysis. #3. Anemia of chronic kidney disease. Status post blood transfusion this admission. Hemoglobin 7.6 this morning. Iron deficiency noted - status post IV iron. #4. Insulin-dependent diabetes mellitus. Uncontrolled. #5. Hypervolemic hyponatremia. #6. Hypertension with chronic kidney disease. Controlled. #7. Fluid overload. Improved postdialysis. Plan: Hemodialysis again today with goal 4 L ultrafiltration. Maintain renal diet. Maintain Aranesp. Continue PhosLo 1 tablet 3 times daily with meals. Vascular surgery following. Will rest AV fistula for now. Using P-cath for dialysis. alteration manager on board to help in setting up dialysis outpatient at [facility].
[2016-08-11] MEDS: TIOTROPIUM 18 MCG/PUFF INHALER INHALATION SCH (11:00)
[2016-08-11 11:34] LABS: Glucose,Whole Blood 123 mg/dL (75-99)
[2016-08-11] MEDS: SODIUM CHLORIDE 0.9% 1,000 ML IV SCH (13:44)
--- NOTE | 2016-08-12 08:15 | DS ---
DATE OF ADMISSION: 08/05/2016 DATE OF DISCHARGE: 08/11/2016 FINAL DIAGNOSES: 1. Change in mental status, hypoglycemia with acute metabolic encephalopathy secondary to hypoglycemia present on admission. 2. Congestive heart failure acute exacerbation with acute on chronic diastolic dysfunction, ejection fraction 55% to 60% with moderate mitral regurgitation, moderate tricuspid regurgitation, moderate to severe pulmonary hypertension with a 2-D echo. 3. Moderate pericardial effusion with moderate pleural effusion. 4. Severe hyperkalemia secondary to renal failure present on admission, improved. 5. Anemia, normocytic anemia, anemia of chronic disease with renal failure, status post transfusions. 6. Hypoalbuminemia with mild to moderate protein calorie malnutrition. 7. Chronic renal failure, stage V, on hemodialysis , Wednesday, , Wednesday cycle. 8. Temporary dialysis on the right femoral site. 9. Hyponatremia. 10. History of diabetes mellitus type 2. 11. Increased AST, ALT with mild hepatitis of undetermined etiology. 12. Increased alkaline phosphatase. 13. Chronic obstructive pulmonary disease. 14. Gastroesophageal reflux disease. 15. Hypertension, essential. 16. Hypothyroidism. 17. History of nicotine dependence. 18. History of THC. 19. FULL CODE. DISCHARGE DISPOSITION: The patient was discharged in stable condition with guarded prognosis. Total time taken 35 minutes. HISTORY OF PRESENT ILLNESS: This 36-year-old gentleman with a past medical history of multiple medical problems admitted with change in mental status and CHF acute exacerbation. The patient was continued with hemodialysis. Otherwise, the patient improved significantly. On exam, vitals are stable. CARDIOVASCULAR SYSTEM: S1, S2 muffled. RESPIRATORY: ntd ABDOMEN: Soft. NERVOUS SYSTEM: No focal deficits. DISCHARGE ADVICE: 1. Diet is cardiac. 2. Activity limited until followup. 3. Follow up with Dr. Donis, primary physician, in 2 to 3 days. 4. Follow up with Dr. Way as advised 5. Continue to monitor. 6. Accu-Cheks a.c., at bedtime. Results to the primary physician. MEDICATIONS: 1. Albuterol 2.5 q.i.d. and p.r.n. 2. Norvasc 10 mg p.o. daily. 3. Ecotrin 81 mg p.o. daily. 4. Bumex 2 mg p.o. b.i.d. 5. Coreg 25 mg p.o. b.i.d. 6. Clonidine 0.3 t.i.d. 7. Iron sulfate 65 mg p.o. t.i.d. 8. Apresoline 100 mg p.o. t.i.d. 9. Elgin 5 mg p.o. t.i.d. p.r.n. 10. Advil 200 mg q.6 p.r.n. 11. Lantus 18 units subcu q.h.s. Accu-Cheks a.c. and at bedtime and results to primary physician. 12. Imdur ER 60 mg p.o. daily. 13. Synthroid 75 mcg p.o. daily. 14. Cozaar 100 mg daily. 15. Minoxidil 5 mg p.o. b.i.d. 16. Zantac 150 mg q.h.s. 17. Incruse 1 puff daily. Once again, the patient will be discharged in stable condition with guarded prognosis. MTDD
== END 2016-08-11 18:15 | disposition home or self-care (01) | DRG 291 ==
LOC: EC 08:49 → 6SEL 11:59 → 5MS5E 08-10 14:42
PROVIDERS: ADMIT Internal Medicine; ATTEND Internal Medicine
PROC: 06HM33Z Insertion of Infusion Device into Right Femoral Vein, Percutaneous Approach (ICD-10-PCS; principal; 2016-08-06 08:24)
PROC: B54BZZA Ultrasonography of Right Lower Extremity Veins, Guidance (ICD-10-PCS; principal; 2016-08-06 08:24)
PROC: 02HV33Z Insertion of Infusion Device into Superior Vena Cava, Percutaneous Approach (ICD-10-PCS; 2016-08-07 14:30)
PROC: B548ZZA Ultrasonography of Superior Vena Cava, Guidance (ICD-10-PCS; 2016-08-07 14:30)
PROC: 30233N1 Transfusion of Nonautologous Red Blood Cells into Peripheral Vein, Percutaneous Approach (ICD-10-PCS; 2016-08-07 14:30)
PROC: 5A1D60Z (ICD-10-PCS; 2016-08-07 14:30)
DX: I13.2 Hypertensive heart and chronic kidney disease with heart failure and with stage 5 chronic kidney disease, or end stage renal disease (principal); G93.41 Metabolic encephalopathy; N17.9 Acute kidney failure, unspecified; I31.3 Pericardial effusion (noninflammatory); N18.6 End stage renal disease; E44.0 Moderate protein-calorie malnutrition; K75.9 Inflammatory liver disease, unspecified; T82.510A Breakdown (mechanical) of surgically created arteriovenous fistula, initial encounter; I50.33 Acute on chronic diastolic (congestive) heart failure; E87.1 Hypo-osmolality and hyponatremia; E11.649 Type 2 diabetes mellitus with hypoglycemia without coma; E66.01 Morbid (severe) obesity due to excess calories; I27.2 Other secondary pulmonary hypertension; E87.5 Hyperkalemia; E11.22 Type 2 diabetes mellitus with diabetic chronic kidney disease; I08.1 Rheumatic disorders of both mitral and tricuspid valves; E03.9 Hypothyroidism, unspecified; D63.1 Anemia in chronic kidney disease; E61.1 Iron deficiency; F17.200 Nicotine dependence, unspecified, uncomplicated; J44.9 Chronic obstructive pulmonary disease, unspecified; K21.9 Gastro-esophageal reflux disease without esophagitis; Y71.2 Prosthetic and other implants, materials and accessory cardiovascular devices associated with adverse incidents; Z79.4 Long term (current) use of insulin; Z79.899 Other long term (current) drug therapy; Z82.49 Family history of ischemic heart disease and other diseases of the circulatory system; Z83.3 Family history of diabetes mellitus; Z99.2 Dependence on renal dialysis; Z88.5 Allergy status to narcotic agent; Z91.040 Latex allergy status
CPT/HCPCS: 36415; 36556; 36558; 71020; 76937; 77001; 80053; 80074; 81001; 82728; 83036; 83540; 83550; 83735; 83880; 84100; 84439; 84443; 85025; 85610; 86850; 86900; 86901; 86920; 90935; 93005; 93306; 96372; 96374; 96375; 99291

== ENCOUNTER 2017-01-15 10:48 | Inpatient (IN) | payer OTHER ==
[~2017-01-15 10:48] MED LIST: HEPARIN SODIUM,PORCINE 5,000 UNIT/ML 1 ML VIAL ONE
--- NOTE | 2017-01-15 10:53 | ED ---
General Adult HPI - General Stated complaint: Weakness Time Seen by Provider: 01/15/17 10:50 Source: RN notes reviewed - History of Present Illness Initial comments: This is a 37-year-old male who presents emergency Department with history of diabetes and renal failure. Patient did not come to dialysis on Wednesday or Wednesday. Patient comes in today because he is feeling very weak and he was told his hemoglobin was below 6. Patient states he has lower back pain which is chronic and complains of some abdominal cramping. Patient denies any nausea vomiting or diarrhea. Patient denies any recent fever chills or cough. Patient denies any chest pain palpitations difficulty breathing or shortness of breath. Patient denies headache patient denies numbness weakness. Patient denies any lightheadedness or dizziness. - Related Data Home Medications Medication Instructions Recorded Confirmed Aspirin EC [Ecotrin Low Dose] 81 mg PO DAILY@0800 07/31/16 01/15/17 Carvedilol [Coreg] 25 mg PO BID@0900,1700 07/31/16 01/15/17 Isosorbide Mononitrate ER [Imdur] 60 mg PO DAILY@0800 07/31/16 01/15/17 Minoxidil 5 mg PO BID@0800,1600 07/31/16 01/15/17 amLODIPine [Norvasc] 10 mg PO DAILY@0800 07/31/16 01/15/17 cloNIDine HCL 0.3 mg PO TID@0600,1400,199907/31/16 01/15/17 hydrALAZINE HCL [Apresoline] 100 mg PO TID@0600,1400,199907/31/16 01/15/17 Atorvastatin [Lipitor] 10 mg PO HS@199912/18/16 01/15/17 Budesonide/Formoterol Fumarate 2 puff INHALATION RT-DAILY@0800 12/18/16 01/15/17 [Symbicort 160-4.5 Mcg Inhaler] Calcium Carbonate [Tums] 1,000 mg PO Q6H PRN 12/18/16 01/15/17 Docusate [Colace] 100 mg PO BID@0800,1600 12/18/16 01/15/17 Ferrous Sulfate [Iron (65 MG 325 mg PO TID@0900,1300,1800 12/18/16 01/15/17 Elemental)] Folic Acid-Vit B Complex-Vit C 1 mg PO DAILY@0800 12/18/16 01/15/17 [Nephrocaps] Levothyroxine Sodium [Synthroid] 112 mcg PO DAILY@0600 12/18/16 01/15/17 Nitroglycerin Sl Tabs [Nitrostat] 0.4 mg SUBLINGUAL Q5M PRN 12/18/16 01/15/17 Omeprazole [PriLOSEC] 20 mg PO DAILY@0800 12/18/16 01/15/17 Ondansetron [Zofran] 4 mg PO Q8HR PRN 12/18/16 01/15/17 traZODone HCL 50 mg PO HS@199912/18/16 01/15/17 Acetaminophen Tab [Tylenol] 500 mg PO Q6H PRN 01/06/17 01/15/17 Benzocaine/Menthol Lozeng [Cepacol 1 lozenge MUCOUS MEM Q4HR PRN 01/06/17 lozenge] Darbepoetin [place] [Aranesp] 60 mcg SQ BILLINGS@0600 01/06/17 01/15/17 Nystatin/Triamcin 1 applicate TOPICAL BID@0800,1600 01/06/17 01/15/17 [Nystatin-Triamcinolone Cream] ALPRAZolam [Xanax] 0.5 mg PO Q8H PRN 01/15/17 01/15/17 HYDROcodone/APAP 5-325MG [[place] 1 tab PO Q4HR PRN 01/15/17 01/15/17 5-325] Insulin Aspart [NovoLOG] 4 units SQ TID@0630,1130,1600 01/15/17 01/15/17 Ipratropium-Albuterol Nebulize 3 ml INHALATION RT-Q4H PRN 01/15/17 01/15/17 [Duoneb 0.5 mg-3 mg/3 ml Soln] Sevelamer [Renvela] 800 mg PO AC-TID 01/15/17 01/15/17 Sodium Bicarbonate Tab 650 mg PO BID@0800,1600 01/15/17 01/15/17 Previous Rx's Medication Instructions Recorded Metoclopramide [Reglan] 5 mg PO AC-TID #90 tab 10/19/17 Polyethylene Glycol 3350 [Miralax] 17 gm PO MoWeFr@0900 powd.pack 12/31/16 Loperamide [Imodium] 4 mg PO Q12H PRN #10 cap 01/08/17 Allergies Allergy/AdvReac Type Severity Reaction Status Date / Time insulin isophane (NPH) Allergy Unknown Verified 01/15/17 11:00 insulin lispro [From Humalog] Allergy Swelling Verified 01/15/17 11:00 insulin regular Allergy Unknown Verified 01/15/17 11:00 [From Humulin R U-100] insulin zinc Allergy Unknown Verified 01/15/17 11:00 latex Allergy Rash/Hives Verified 01/15/17 11:00 tramadol AdvReac Nausea & Verified 01/15/17 11:00 Vomiting Review of Systems ROS Statement: Those systems with pertinent positive or pertinent negative responses have been documented in the HPI. ROS Other: All systems not noted in ROS Statement are negative. Past Medical History Past Medical History: COPD, Diabetes Mellitus, GERD/Reflux, Hypertension, Renal Disease, Thyroid Disorder Additional Past Medical History / Comment(s): Dialysis T, Th, Sat, TAKES IRON SUPPLEMENTS ", "ENLARGED HEART VALVE","MURMUR", SWOLLEN TESTICLES History of Any Multi-Drug Resistant Organisms: None Reported Past Surgical History: Orthopedic Surgery Additional Past Surgical History / Comment(s): LT WRIST FISTULA, right chest hemodialysis port Past Anesthesia/Blood Transfusion Reactions: No Reported Reaction Additional Past Anesthesia/Blood Transfusion Reaction / Comment(s): PAT BLOOD TRANSFUSION-NO REACTION Past Psychological History: No Psychological Hx Reported Additional Psychological History / Comment(s): PT STATED JUST MOVED HERE FROM [facility] YESTERDAY.DOES'NT HAVE A PCP ESTABLISHED YET. LIVING WITH HIS SISTER AND 2 BROTHERS, 5 CATS IN A SINGLE LEVEL HOME THAT HAS 2 STEPS. HAS A 4 WHEELED WALKER AND A NEBULIZER. Smoking Status: Current every day smoker Past Alcohol Use History: None Reported Additional Past Alcohol Use History / Comment(s): STARTED SMOKING AT AGE 20- SMOKES 5 CIG PER DAY. ALSO SMOKES MARIJUANA-USED THIS AM. Past Drug Use History: Marijuana - Past Family History Mother Family Medical History: Cancer Additional Family Medical History / Comment(s): COLON CANCER Brother(s) Family Medical History: Diabetes Mellitus Father Family Medical History: Diabetes Mellitus, Hyperlipidemia, Hypertension, Myocardial Infarction (MD) Additional Family Medical History / Comment(s): CADIAC PROBLEMS AND HAD A CARDIO PULMONARY ARREST General Exam - General Exam Comments Initial Comments: GENERAL: Patient is well-developed and well-nourished. Patient is nontoxic and well- hydrated and is in mild distress. ENT: Neck is soft and supple. No significant lymphadenopathy is noted. Oropharynx is clear. Moist mucous membranes. Neck has full range of motion without eliciting any pain. EYES: The sclera were anicteric and conjunctiva were pink and moist. Extraocular movements were intact and pupils were equal round and reactive to light. Eyelids were unremarkable. PULMONARY: Unlabored respirations. Good breath sounds bilaterally. No audible rales rhonchi or wheezing was noted. CARDIOVASCULAR: There is a regular rate and rhythm without any murmurs gallops or rubs. ABDOMEN: Soft and nontender with normal bowel sounds. No palpable organomegaly was noted. There is no palpable pulsatile mass. SKIN: Skin is clear with no lesions or rashes and otherwise unremarkable. NEUROLOGIC: Patient is alert and oriented x3. Cranial nerves II through XII are grossly intact. Motor and sensory are also intact. Normal speech, volume and content. Symmetrical smile. MUSCULOSKELETAL: extensive edema bilateral legs LYMPHATICS: No significant lymphadenopathy is noted PSYCHIATRIC: Normal psychiatric evaluation. Normal interpersonal interactions appears functionally intact in deals appropriately with others. No signs of depression. No signs of anxiety. Course Vital Signs 01/15/17 01/15/17 01/15/17 10:49 11:05 11:31 Temperature 98.2 F Pulse Rate 65 64 Respiratory 18 18 18 Rate Blood Pressure 135/72 125/64 O2 Sat by Pulse 96 99 Oximetry 01/15/17 12:00 Temperature Pulse Rate 63 Respiratory 18 Rate Blood Pressure 122/62 O2 Sat by Pulse 99 Oximetry Medical Decision Making - Medical Decision Making EKG shows a sinus rhythm with PVCs at 66 bpm MA interval is 158 QRSs 104 QT interval 436 QTC is 457. Patient's EKG shows no ST segment elevation or depression or T wave abnormalities are noted. Chest x-ray shows mild pulmonary edema. I spoke with because he agreed to admit the patient I admitted the patient wrote admitting orders and consult nephrology - Lab Data Result diagrams: 01/15/17 11:01 01/15/17 11:01 Lab Results 01/15/17 01/15/17 01/15/17 Range/Units 11: 11: 11:01 WBC 9.5 (3.8-10.6) k/uL RBC 2.36 L (4.30-5.90) m/uL Hgb 7.1 L (13.0-17.5) gm/dL Hct 23.3 L (39.0-53.0) % MCV 97.5 (80.0-100.0) fL MCH 29.9 (25.0-35.0) pg MCHC 30.6 L (31.0-37.0) g/dL RDW 15.9 H (11.5-15.5) % Plt Count 368 (150-450) k/uL Neutrophils % 75 % Lymphocytes % 6 % Monocytes % 12 % Eosinophils % 5 % Basophils % 1 % Neutrophils # 7.1 (1.3-7.7) k/uL Lymphocytes # 0.6 L (1.0-4.8) k/uL Monocytes # 1.2 H (0-1.0) k/uL Eosinophils # 0.5 (0-0.7) k/uL Basophils # 0.1 (0-0.2) k/uL Hypochromasia Slight PT (9.0-12.0) sec INR (<1.2) APTT (22.0-30.0) sec Sodium 126 L (137-145) mmol/L Potassium 6.1 H (3.5-5.1) mmol/L Chloride 90 L (98-107) mmol/L Carbon Dioxide 21 L (22-30) mmol/L Anion Gap 15 mmol/L BUN 69 H (9-20) mg/dL Creatinine 5.40 H* (0.66-1.25) mg/dL Est GFR (MDRD) Af Amer 15 (>60 ml/min/1.73 sqM) Est GFR (MDRD) Non-Af 12 (>60 ml/min/1.73 sqM) Glucose 409 H (74-99) mg/dL Calcium 8.4 (8.4-10.2) mg/dL Magnesium 1.8 (1.6-2.3) mg/dL Total Bilirubin 4.4 H (0.2-1.3) mg/dL AST 29 (17-59) U/L ALT 42 (21-72) U/L Alkaline Phosphatase 1330 H (38-126) U/L Total Creatine Kinase 38 L (55-170) U/L CK-MB (CK-2) 4.9 H* (0.0-2.4) ng/mL CK-MB (CK-2) Rel Index 12.9 Troponin I 0.104 H* (0.000-0.034) ng/mL Total Protein 5.8 L (6.3-8.2) g/dL Albumin 2.6 L (3.5-5.0) g/dL 01/15/17 Range/Units 11:01 WBC (3.8-10.6) k/uL RBC (4.30-5.90) m/uL Hgb (13.0-17.5) gm/dL Hct (39.0-53.0) % MCV (80.0-100.0) fL MCH (25.0-35.0) pg MCHC (31.0-37.0) g/dL RDW (11.5-15.5) % Plt Count (150-450) k/uL Neutrophils % % Lymphocytes % % Monocytes % % Eosinophils % % Basophils % % Neutrophils # (1.3-7.7) k/uL Lymphocytes # (1.0-4.8) k/uL Monocytes # (0-1.0) k/uL Eosinophils # (0-0.7) k/uL Basophils # (0-0.2) k/uL Hypochromasia PT 11.1 (9.0-12.0) sec INR 1.1 (<1.2) APTT 25.7 (22.0-30.0) sec Sodium (137-145) mmol/L Potassium (3.5-5.1) mmol/L Chloride (98-107) mmol/L Carbon Dioxide (22-30) mmol/L Anion Gap mmol/L BUN (9-20) mg/dL Creatinine (0.66-1.25) mg/dL Est GFR (MDRD) Af Amer (>60 ml/min/1.73 sqM) Est GFR (MDRD) Non-Af (>60 ml/min/1.73 sqM) Glucose (74-99) mg/dL Calcium (8.4-10.2) mg/dL Magnesium (1.6-2.3) mg/dL Total Bilirubin (0.2-1.3) mg/dL AST (17-59) U/L ALT (21-72) U/L Alkaline Phosphatase (38-126) U/L Total Creatine Kinase (55-170) U/L CK-MB (CK-2) (0.0-2.4) ng/mL CK-MB (CK-2) Rel Index Troponin I (0.000-0.034) ng/mL Total Protein (6.3-8.2) g/dL Albumin (3.5-5.0) g/dL Disposition Clinical Impression: Chronic renal failure, Dialysis patient, noncompliant Disposition: ADMITTED IP TO THIS HOSP Referrals: Dex Valverde MD [Primary Care Provider] - 1-2 days Time of Disposition: 12:17
[2017-01-15 11:13] LABS: Basophils # (A) 0.1 k/uL (0-0.2); Basophils % (A) 1 %; CH 29.9; CHCM 30.9; Eosinophils # (A) 0.5 k/uL (0-0.7); Eosinophils % (A) 5 %; HDW 2.22; Hypochromasia Slight; Luc # (Auto) 0.19; Luc % (Auto) 2; Lymphocytes # (A) 0.6 k/uL (1.0-4.8); Lymphocytes % (A) 6 %; MCH 29.9 pg (25.0-35.0); MCHC 30.6 g/dL (31.0-37.0); MCV 97.5 fL (80.0-100.0); Mean Platelet Volume 7.6; Monocytes # (A) 1.2 k/uL (0-1.0); Monocytes % (A) 12 %; Neutrophils # (A) 7.1 k/uL (1.3-7.7); Neutrophils % (A) 75 %; RBC 2.36 m/uL (4.30-5.90); RDW 15.9 % (11.5-15.5); WBC 9.5 k/uL (3.8-10.6); WBC (Perox) 9.52
[2017-01-15 11:19] LABS: Calcium 8.4 mg/dL (8.4-10.2); Magnesium 1.8 mg/dL (1.6-2.3); Potassium 6.1 mmol/L (3.5-5.1); Total Bilirubin 4.4 mg/dL (0.2-1.3); Total Protein 5.8 g/dL (6.3-8.2)
[2017-01-15 11:20] LABS: HCT 23.3 % (39.0-53.0); HGB 7.1 gm/dL (13.0-17.5)
[2017-01-15 11:27] LABS: INR 1.1 (<1.2); Partial Thromboplastin Time 25.7 sec (22.0-30.0); Prothrombin Time 11.1 sec (9.0-12.0)
--- NOTE | 2017-01-15 11:29 | XR ---
EXAMINATION TYPE: XR chest 1V portable DATE OF EXAM: 01/15/2017 COMPARISON: Prior chest x-ray 01/08/2017 HISTORY: Weakness, abnormal chest x-ray, dialysis TECHNIQUE: Single frontal view of the chest is obtained. FINDINGS: Right-sided jugular central venous catheter is present, distal tip is overlying the region of the cavoatrial junction. There is no evident pneumothorax. Basilar increased density persists on the left, there is blunting of the costophrenic angle. Interstitium is increased. The heart remains e nlarged. IMPRESSION: Correlate for volume overload, uremia, congestive heart failure. Follow-up recommended.
[2017-01-15 11:48] LABS: Creatine Kinase MB 4.9 ng/mL (0.0-2.4); Troponin I 0.104 ng/mL (0.000-0.034)
[2017-01-15] MEDS ORDERED: NITROGLYCERIN SL TABS 0.4 MG TAB SUBLINGUAL PRN (16:30)
[2017-01-15 16:35] LABS: Glucose,Whole Blood 434 mg/dL (75-99)
[2017-01-15] MEDS ORDERED: LOPERAMIDE 2 MG CAP PO PRN (16:43)
[2017-01-15] MEDS ORDERED: BENZOCAINE/MENTHOL LOZENG 1 EACH LOZENGE MUCOUS MEM PRN (16:43)
[2017-01-15] MEDS ORDERED: ACETAMINOPHEN TAB 500 MG TAB PO PRN (16:43)
[2017-01-15] MEDS ORDERED: CALCIUM CARBONATE 500 MG CHEWABLE PO PRN (16:43)
[2017-01-15] MEDS ORDERED: INSULIN LISPRO (humaLOG) 300 UNIT/3 ML VIAL SQ ONE (16:50)
[2017-01-15] MEDS: INSULIN LISPRO (humaLOG) 300 UNIT/3 ML VIAL SQ SCH ×2 (17:27→21:53)
[2017-01-15] MEDS ORDERED: INSULIN LISPRO (humaLOG) 300 UNIT/3 ML VIAL SQ SCH (17:30)
[2017-01-15] MEDS ORDERED: SODIUM POLYSTYRENE SULFONATE 15 GM/60 ML BOTTLE PO STA (17:47)
--- NOTE | 2017-01-15 18:56 | P.HPIM ---
History of Present Illness 37-year-old male was sent in here from subacute rehab because of anemia with hemoglobin of I although he is found to have hemoglobin of 7 but patient is found to have volume overload with bilateral pedal edema pulmonary edema. Patient missed hemodialysis 2 sessions syndrome patient is comparing of generalized tiredness. Patient was not feeling well because of which he declined to go to hemodialysis patient his hyper Brenda week secondary to that will do Late for that patient will be resumed on his medications except for minoxidil because of hypotension and patient will be initiated back on hemodialysis today, nephrology was consulted. Patient will not require any blood transfusion. Discussed the extensively with him and patient is agreeable for hemodialysis discussed with his medical power of client experience consultant who is county appointed guardian Review of Systems REVIEW OF SYSTEMS: CONSTITUTIONAL: No fever, HEENT: No recent visual problems or hearing problems. Denied any sore throat. CARDIOVASCULAR: No chest pain, orthopnea, PND, no palpitations, no syncope. PULMONARY: No shortness of breath, no cough, no hemoptysis. GASTROINTESTINAL: No diarrhea, no nausea, no vomiting, no abdominal pain. Normoactive bowel sounds. NEUROLOGICAL: No headaches, no weakness, no numbness. HEMATOLOGICAL: Denies any bleeding or petechiae. GENITOURINARY: Denies any burning micturition, frequency, or urgency. MUSCULOSKELETAL/RHEUMATOLOGICAL: Denies any joint pain, swelling, or any muscle pain. ENDOCRINE: Denies any polyuria or polydipsia. The rest of the 14-point review of systems is negative. Past Medical History Past Medical History: Heart Failure, COPD, Diabetes Mellitus, GERD/Reflux, Hypertension, Renal Disease, Thyroid Disorder Additional Past Medical History / Comment(s): Pt recently admitted to [facility] on with chest wall pain and had echo which showed severe tricuspid regurgitation with EF 55-60%. Other hx: IDDM type II, diabetic gastroparesis , peripheral neuropathy-hands and feet, diabetic nephroparesis-ESRD with dialysis //wed-last went 01/11/17, normocytic anemia, chronic low back pain, enlarged heart, murmur, hypothyroid, History of Any Multi-Drug Resistant Organisms: None Reported Past Surgical History: Orthopedic Surgery Additional Past Surgical History / Comment(s): LT WRIST FISTULA, right chest hemodialysis port, R hand surgery. Past Anesthesia/Blood Transfusion Reactions: No Reported Reaction Additional Past Anesthesia/Blood Transfusion Reaction / Comment(s): PAT BLOOD TRANSFUSION-NO REACTION Smoking Status: Current every day smoker - Past Family History Mother Family Medical History: Cancer Additional Family Medical History / Comment(s): COLON CANCER Brother(s) Family Medical History: Diabetes Mellitus Father Family Medical History: Diabetes Mellitus, Hyperlipidemia, Hypertension, Myocardial Infarction ([place]) Additional Family Medical History / Comment(s): CARDIAC PROBLEMS AND HAD A CARDIO PULMONARY ARREST Medications and Allergies Home Medications Medication Instructions Recorded Confirmed Type Aspirin EC [Ecotrin Low Dose] 81 mg PO DAILY@0800 07/31/16 01/15/17 History Carvedilol [Coreg] 25 mg PO BID@0900,1700 07/31/16 01/15/17 History Isosorbide Mononitrate ER [Imdur] 60 mg PO DAILY@0800 07/31/16 01/15/17 History Minoxidil 5 mg PO BID@0800,1600 07/31/16 01/15/17 History amLODIPine [Norvasc] 10 mg PO DAILY@0800 07/31/16 01/15/17 History cloNIDine HCL 0.3 mg PO TID@0600,1400,199907/31/16 01/15/17 History hydrALAZINE HCL [Apresoline] 100 mg PO TID@0600,1400,199907/31/16 01/15/17 History Atorvastatin [Lipitor] 10 mg PO HS@199912/18/16 01/15/17 History Budesonide/Formoterol Fumarate 2 puff INHALATION RT-DAILY@0800 12/18/16 History [Symbicort 160-4.5 Mcg Inhaler] Calcium Carbonate [Tums] 1,000 mg PO Q6H PRN 12/18/16 01/15/17 History Docusate [Colace] 100 mg PO BID@0800,1600 12/18/16 01/15/17 History Ferrous Sulfate [Iron (65 MG 325 mg PO TID@0900,1300,1800 12/18/16 01/15/17 History Elemental)] Folic Acid-Vit B Complex-Vit C 1 mg PO DAILY@0800 12/18/16 01/15/17 History [Nephrocaps] Levothyroxine Sodium [Synthroid] 112 mcg PO DAILY@0600 12/18/16 01/15/17 History Nitroglycerin Sl Tabs [Nitrostat] 0.4 mg SUBLINGUAL Q5M PRN 12/18/16 01/15/17 History Omeprazole [PriLOSEC] 20 mg PO DAILY@0800 12/18/16 01/15/17 History Ondansetron [Zofran] 4 mg PO Q8HR PRN 12/18/16 01/15/17 History traZODone HCL 50 mg PO HS@2000 12/18/16 01/15/17 History Metoclopramide [Reglan] 5 mg PO AC-TID #90 tab 12/31/16 01/15/17 Rx Polyethylene Glycol 3350 [Miralax] 17 gm PO MoWeFr@0900 powd.pack 12/31/1605/29 Rx Acetaminophen Tab [Tylenol] 500 mg PO Q6H PRN 01/06/17 01/15/17 History Benzocaine/Menthol Lozeng [Cepacol 1 lozenge MUCOUS MEM Q4HR PRN 01/06/17 History lozenge] Darbepoetin Kolby [Aranesp] 60 mcg SQ BILLINGS@0600 01/06/17 01/15/17 History Nystatin/Triamcin 1 applicate TOPICAL BID@0800,1600 01/06/17 01/15/17 History [Nystatin-Triamcinolone Cream] Loperamide [Imodium] 4 mg PO Q12H PRN #10 cap 01/08/17 01/15/17 Rx ALPRAZolam [Xanax] 0.5 mg PO Q8H PRN 01/15/17 01/15/17 History HYDROcodone/APAP 5-325MG [[place] 1 tab PO Q4HR PRN 01/15/17 01/15/17 History 5-325] Insulin Aspart [NovoLOG] 4 units SQ TID@0630,1130,1600 01/15/17 01/15/17 History Ipratropium-Albuterol Nebulize 3 ml INHALATION RT-Q4H PRN 01/15/17 01/15/17 History [Duoneb 0.5 mg-3 mg/3 ml Soln] Sevelamer [Renvela] 800 mg PO AC-TID 01/15/17 01/15/17 History Sodium Bicarbonate Tab 650 mg PO BID@0800,1600 01/15/17 01/15/17 History Allergies Allergy/AdvReac Type Severity Reaction Status Date / Time insulin isophane (NPH) Allergy Unknown Verified 01/15/17 11:00 insulin lispro [From Humalog] Allergy Swelling Verified 01/15/17 11:00 insulin regular Allergy Unknown Verified 01/15/17 11:00 [From Humulin R U-100] insulin zinc Allergy Unknown Verified 01/15/17 11:00 latex Allergy Rash/Hives Verified 01/15/17 11:00 tramadol AdvReac Nausea & Verified 01/15/17 11:00 Vomiting Physical Exam Vitals: Vital Signs Temp Pulse Pulse Resp BP BP Pulse Ox 01/15/17 15:50 97.5 F L 63 16 122/57 01/15/17 15:32 98 F 66 18 106/54 98 01/15/17 14:00 69 18 108/55 96 01/15/17 13:00 105 H 18 117/59 99 01/15/17 12:50 61 18 123/58 99 01/15/17 12:00 63 18 122/62 99 01/15/17 11:31 64 18 125/64 99 01/15/17 11:05 18 01/15/17 10:49 98.2 F 65 18 135/72 96 Intake and Output 01/15/17 01/15/17 01/15/17 06:59 14:59 22:59 Intake Total 236 Balance 236 Intake: Oral 236 Other: Weight 98.883 kg Patient Weight 01/16/17 06:59 Weight 98.883 kg PHYSICAL EXAMINATION: GENERAL: The patient is alert and oriented x3, not in any acute distress. Appears to be tired and weak HEENT: Pupils are round and equally reacting to light. EOMI. No scleral icterus. No conjunctival pallor. Normocephalic, atraumatic. No pharyngeal erythema. No thyromegaly. CARDIOVASCULAR: S1 and S2 present. No murmurs, rubs, or gallops. PULMONARY: Chest is clear to auscultation, no wheezing or crackles in bilateral lower lung bases ABDOMEN: Soft, nontender, nondistended, normoactive bowel sounds. No palpable organomegaly. MUSCULOSKELETAL: No joint swelling or deformity. EXTREMITIES: No cyanosis, clubbing, extensive edema bilateral lower limbs NEUROLOGICAL: Gross neurological examination did not reveal any focal deficits. SKIN: No rashes. Results CBC & Chem 7: 01/15/17 11:01/15/17 11: Labs: Abnormal Lab Results - Last 24 Hours (Table) 01/15/17 01/15/17 01/15/17 Range/Units 11: 11: 11:01 RBC 2.36 L (4.30-5.90) m/uL Hgb 7.1 L (13.0-17.5) gm/dL Hct 23.3 L (39.0-53.0) % MCHC 30.6 L (31.0-37.0) g/dL RDW 15.9 H (11.5-15.5) % Lymphocytes # 0.6 L (1.0-4.8) k/uL Monocytes # 1.2 H (0-1.0) k/uL Sodium 126 L (137-145) mmol/L Potassium 6.1 H (3.5-5.1) mmol/L Chloride 90 L (98-107) mmol/L Carbon Dioxide 21 L (22-30) mmol/L BUN 69 H (9-20) mg/dL Creatinine 5.40 H* (0.66-1.25) mg/dL Glucose 409 H (74-99) mg/dL POC Glucose (mg/dL) (75-99) mg/dL Total Bilirubin 4.4 H (0.2-1.3) mg/dL Alkaline Phosphatase 1330 H (38-126) U/L Total Creatine Kinase 38 L (55-170) U/L CK-MB (CK-2) 4.9 H* (0.0-2.4) ng/mL Troponin I 0.104 H* (0.000-0.034) ng/mL Total Protein 5.8 L (6.3-8.2) g/dL Albumin 2.6 L (3.5-5.0) g/dL 01/15/17 Range/Units 16:21 RBC (4.30-5.90) m/uL Hgb (13.0-17.5) gm/dL Hct (39.0-53.0) % MCHC (31.0-37.0) g/dL RDW (11.5-15.5) % Lymphocytes # (1.0-4.8) k/uL Monocytes # (0-1.0) k/uL Sodium (137-145) mmol/L Potassium (3.5-5.1) mmol/L Chloride (98-107) mmol/L Carbon Dioxide (22-30) mmol/L BUN (9-20) mg/dL Creatinine (0.66-1.25) mg/dL Glucose (74-99) mg/dL POC Glucose (mg/dL) 434 H (75-99) mg/dL Total Bilirubin (0.2-1.3) mg/dL Alkaline Phosphatase (38-126) U/L Total Creatine Kinase (55-170) U/L CK-MB (CK-2) (0.0-2.4) ng/mL Troponin I (0.000-0.034) ng/mL Total Protein (6.3-8.2) g/dL Albumin (3.5-5.0) g/dL Thrombosis Risk Factor Assmnt - Choose All That Apply Any of the Below Risk Factors Present?: Yes Each Factor Represents 1 point: Abnormal pulmonary function (COPD), Heart failure (<1month), Obesity (BMI >25) Other Risk Factors: No Other congenital or acquired thrombophilia - If yes, enter type in comment: No Thrombosis Risk Factor Assessment Total Risk Factor Score: 3 Thrombosis Risk Factor Assessment Level: Moderate Risk Assessment and Plan Plan: #1 generalized weakness and tiredness: Secondary to missing hemodialysis. #2 pulmonary edema secondary to wall volume overload from missing her dialysis. #3 hyponatremia secondary to hypervolemic hyponatremia expected to improve with hemodialysis #4 hyperkalemia secondary dysfunction missing hemodialysis expected to improve with hemodialysis. #5 elevated troponin due to chronic kidney dysfunction. Patient doesn't have any chest pain. #6 anemia of chronic kidney disease #7 diabetes with us type II with erosive gastroparesis. #8 hypertension hold off minoxidil because of low blood pressure. #9 COPD: Without any acute exacerbation #10 gastroesophageal reflux disease #11 hyperlipidemia Patient will be initiated back on his appropriate home medications. Kayexalate for hyperkalemia hemodialysis today
[2017-01-15] MEDS: CARVEDILOL 12.5 MG TAB PO SCH (19:58)
[2017-01-15] MEDS: METOCLOPRAMIDE 5 MG TAB PO SCH (19:59)
[2017-01-15] MEDS: FERROUS SULFATE 325 MG TAB PO SCH (19:59)
[2017-01-15] MEDS: SEVELAMER 800 MG TAB PO SCH (19:59)
[2017-01-15] MEDS ORDERED: cloNIDine HCL 0.1 MG TAB PO SCH ×2 (20:00)
[2017-01-15] MEDS: HYDROcodone/APAP 5-325MG 1 EACH TAB PO PRN (21:17)
[2017-01-15 21:34] LABS: Glucose,Whole Blood 313 mg/dL (75-99)
[2017-01-15] MEDS: INSULIN GLARGINE 100 UNIT/ML 10 ML VIAL SQ SCH (21:53)
[2017-01-16] MEDS: hydrALAZINE HCL 50 MG TAB PO SCH ×4 (00:12→22:31)
[2017-01-16] MEDS: cloNIDine HCL 0.2 MG TAB PO SCH ×4 (00:12→22:28)
[2017-01-16] MEDS: traZODone HCL 50 MG TAB PO SCH ×2 (00:14→22:28)
[2017-01-16] MEDS: ATORVASTATIN 10 MG TAB PO SCH ×2 (00:14→22:28)
[2017-01-16] MEDS: ALPRAZolam 0.5 MG TAB PO PRN ×3 (02:02→22:29)
[2017-01-16] MEDS: LEVOTHYROXINE 112 MCG TAB PO SCH (06:04)
[2017-01-16 06:06] LABS: Glucose,Whole Blood 188 mg/dL (75-99)
[2017-01-16 07:14] LABS: Calcium 8.1 mg/dL (8.4-10.2); Phosphorus 6.4 mg/dL (2.5-4.5); Potassium 4.7 mmol/L (3.5-5.1); Total Bilirubin 3.3 mg/dL (0.2-1.3); Total Protein 5.3 g/dL (6.3-8.2)
[2017-01-16] MEDS: METOCLOPRAMIDE 5 MG TAB PO SCH ×3 (07:15→17:29)
[2017-01-16] MEDS: PANTOPRAZOLE 40 MG TABLET PO SCH (07:15)
[2017-01-16] MEDS: SEVELAMER 800 MG TAB PO SCH ×3 (07:16→18:00)
[2017-01-16 07:19] LABS: Basophils # (A) 0.1 k/uL (0-0.2); Basophils % (A) 1 %; CHCM 30.9; Eosinophils # (A) 0.6 k/uL (0-0.7); Eosinophils % (A) 9 %; HCT 22.2 % (39.0-53.0); HDW 2.21; Hypochromasia Slight; Luc # (Auto) 0.15; Luc % (Auto) 2; Lymphocytes # (A) 0.7 k/uL (1.0-4.8); Lymphocytes % (A) 9 %; MCH 29.7 pg (25.0-35.0); MCHC 30.4 g/dL (31.0-37.0); MCV 97.7 fL (80.0-100.0); Monocytes # (A) 0.9 k/uL (0-1.0); Monocytes % (A) 12 %; Neutrophils # (A) 4.9 k/uL (1.3-7.7); Neutrophils % (A) 68 %; RBC 2.27 m/uL (4.30-5.90); RDW 15.7 % (11.5-15.5); WBC 7.3 k/uL (3.8-10.6); WBC (Perox) 7.75
[2017-01-16 07:21] LABS: HGB 6.8 gm/dL (13.0-17.5)
[2017-01-16] MEDS: DOCUSATE 100 MG CAP PO SCH ×2 (07:39→15:55)
[2017-01-16] MEDS ORDERED: MINOXIDIL 2.5 MG TAB PO SCH (08:00)
[2017-01-16] MEDS ORDERED: NYSTAT-TRIAMCIN 100,000-0.1 UNIT/GM-% CREAM 30 GM TUBE TOPICAL SCH (08:00)
--- NOTE | 2017-01-16 09:13 | P.NPCON ---
History of Present Illness - Reason for Consult Consult date: 01/16/17 end stage renal disease - Chief Complaint Coming from snf for missed dialysis treatment and low Hb - History of Present Illness Mr. Dunne is a dialysis patient of our group. He is referred to the hospital with missed dialysis treatments and low hemoglobin. He has this low hemoglobin in the past was evaluated by GI during the last hospital stay. He comes in with volume overload pulmonary edema and hyperkalemia got emergently dialyzed yesterday. He has right jugular permacath. Denies any nausea vomiting hematemesis,hematochezia or melena. He is Wednesday dialysis patient missesd his treatments on Wednesday and Wednesday. Review of Systems Denies any chest pain nausea vomiting or diarrhea No visual problems blurriness or headaches No calf tenderness Past Medical History Past Medical History: Heart Failure, COPD, Diabetes Mellitus, GERD/Reflux, Hypertension, Renal Disease, Thyroid Disorder Additional Past Medical History / Comment(s): Pt recently admitted to [facility] on with chest wall pain and had echo which showed severe tricuspid regurgitation with EF 55-60%. Other hx: IDDM type II, diabetic gastroparesis , peripheral neuropathy-hands and feet, diabetic nephroparesis-ESRD with dialysis //wed-last went 01/11/17, normocytic anemia, chronic low back pain, enlarged heart, murmur, hypothyroid, History of Any Multi-Drug Resistant Organisms: None Reported Past Surgical History: Orthopedic Surgery Additional Past Surgical History / Comment(s): LT WRIST FISTULA, right chest hemodialysis port, R hand surgery. Past Anesthesia/Blood Transfusion Reactions: No Reported Reaction Additional Past Anesthesia/Blood Transfusion Reaction / Comment(s): PAT BLOOD TRANSFUSION-NO REACTION Smoking Status: Current every day smoker - Past Family History Mother Family Medical History: Cancer Additional Family Medical History / Comment(s): COLON CANCER Brother(s) Family Medical History: Diabetes Mellitus Father Family Medical History: Diabetes Mellitus, Hyperlipidemia, Hypertension, Myocardial Infarction ([place]) Additional Family Medical History / Comment(s): CARDIAC PROBLEMS AND HAD A CARDIO PULMONARY ARREST Medications and Allergies Home Medications Medication Instructions Recorded Confirmed Type Aspirin EC [Ecotrin Low Dose] 81 mg PO DAILY@0800 07/31/16 01/15/17 History Carvedilol [Coreg] 25 mg PO BID@0900,1700 07/31/16 01/15/17 History Isosorbide Mononitrate ER [Imdur] 60 mg PO DAILY@0800 07/31/16 01/15/17 History Minoxidil 5 mg PO BID@0800,1600 07/31/16 01/15/17 History amLODIPine [Norvasc] 10 mg PO DAILY@0800 07/31/16 01/15/17 History cloNIDine HCL 0.3 mg PO TID@0600,1400,199907/31/16 01/15/17 History hydrALAZINE HCL [Apresoline] 100 mg PO TID@0600,1400,199907/31/16 01/15/17 History Atorvastatin [Lipitor] 10 mg PO HS@199912/18/16 01/15/17 History Budesonide/Formoterol Fumarate 2 puff INHALATION RT-DAILY@0800 12/18/16 History [Symbicort 160-4.5 Mcg Inhaler] Calcium Carbonate [Tums] 1,000 mg PO Q6H PRN 12/18/16 01/15/17 History Docusate [Colace] 100 mg PO BID@0800,1600 12/18/16 01/15/17 History Ferrous Sulfate [Iron (65 MG 325 mg PO TID@0900,1300,1800 12/18/16 01/15/17 History Elemental)] Folic Acid-Vit B Complex-Vit C 1 mg PO DAILY@0800 12/18/16 01/15/17 History [Nephrocaps] Levothyroxine Sodium [Synthroid] 112 mcg PO DAILY@0600 12/18/16 01/15/17 History Nitroglycerin Sl Tabs [Nitrostat] 0.4 mg SUBLINGUAL Q5M PRN 12/18/16 01/15/17 History Omeprazole [PriLOSEC] 20 mg PO DAILY@0800 12/18/16 01/15/17 History Ondansetron [Zofran] 4 mg PO Q8HR PRN 12/18/16 01/15/17 History traZODone HCL 50 mg PO HS@199912/18/16 01/15/17 History Metoclopramide [Reglan] 5 mg PO AC-TID #90 tab 12/31/16 01/15/17 Rx Polyethylene Glycol 3350 [Miralax] 17 gm PO MoWeFr@0900 powd.pack 12/31/1605/29 Rx Acetaminophen Tab [Tylenol] 500 mg PO Q6H PRN 01/06/17 01/15/17 History Benzocaine/Menthol Lozeng [Cepacol 1 lozenge MUCOUS MEM Q4HR PRN 01/06/17 History lozenge] Darbepoetin Kolby [Aranesp] 60 mcg SQ BILLINGS@0600 01/06/17 01/15/17 History Nystatin/Triamcin 1 applicate TOPICAL BID@0800,1600 01/06/17 01/15/17 History [Nystatin-Triamcinolone Cream] Loperamide [Imodium] 4 mg PO Q12H PRN #10 cap 01/08/17 01/15/17 Rx ALPRAZolam [Xanax] 0.5 mg PO Q8H PRN 01/15/17 01/15/17 History HYDROcodone/APAP 5-325MG [[place] 1 tab PO Q4HR PRN 01/15/17 01/15/17 History 5-325] Insulin Aspart [NovoLOG] 4 units SQ TID@0630,1130,1600 01/15/17 01/15/17 History Ipratropium-Albuterol Nebulize 3 ml INHALATION RT-Q4H PRN 01/15/17 01/15/17 History [Duoneb 0.5 mg-3 mg/3 ml Soln] Sevelamer [Renvela] 800 mg PO AC-TID 01/15/17 01/15/17 History Sodium Bicarbonate Tab 650 mg PO BID@0800,1600 01/15/17 01/15/17 History Allergies Allergy/AdvReac Type Severity Reaction Status Date / Time insulin isophane (NPH) Allergy Unknown Verified 01/15/17 11:00 insulin lispro [From Humalog] Allergy Swelling Verified 01/15/17 11:00 insulin regular Allergy Unknown Verified 01/15/17 11:00 [From Humulin R U-100] insulin zinc Allergy Unknown Verified 01/15/17 11:00 latex Allergy Rash/Hives Verified 01/15/17 11:00 tramadol AdvReac Nausea & Verified 01/15/17 11:00 Vomiting Physical Exam Vitals: Vital Signs Temp Pulse Pulse Resp BP BP Pulse Ox 01/16/17 04:00 98.0 F 65 16 111/57 99 01/16/17 00:00 98.1 F 69 16 102/54 93 L 01/15/17 20:00 97.6 F 67 16 127/64 93 L 01/15/17 19:57 98 01/15/17 15:50 97.5 F L 63 16 122/57 01/15/17 15:32 98 F 66 18 106/54 98 01/15/17 14:00 69 18 108/55 96 01/15/17 13:00 105 H 18 117/59 99 01/15/17 12:50 61 18 123/58 99 01/15/17 12:00 63 18 122/62 99 01/15/17 11:31 64 18 125/64 99 01/15/17 11:05 18 01/15/17 10:49 98.2 F 65 18 135/72 96 Intake and Output 01/15/17 01/16/17 01/16/17 22:59 06:59 14:59 Intake Total 236 60 180 Balance 236 60 180 Intake: Oral 236 60 180 Other: Weight 103 kg Lying in bed no acute distress Right jugular permacath S1-S2 heard Bilateral edema Results - Lab Results Most recent lab results Calcium 8.1 mg/dL (8.4-10.2) L 01/16/17 06:19 Phosphorus 6.4 mg/dL (2.5-4.5) H 01/16/17 06:19 Magnesium 1.8 mg/dL (1.6-2.3) 01/15/17 11:01 01/16/17 06:19 01/16/17 06:19 Assessment and Plan Assessment: Assessment: #1 ESRD MWF, via right jugular permacath. #2 noncompliance with dialysis treatments. #3 volume overload secondary to missed dialysis. #4 hyperkalemia secondary to missed dialysis status post emergent HD yesterday #5 anemia multifactorial Recommendations: #1 HD today for volume clearance #2 currently on DEVIKA and oral iron. Check iron studies for morning. #3 check phosphorous and intact PTH. Currently on Renvela. #4 transfuse if needed to maintain hemoglobin with the goal of 10-11. Thank you very much for this consultation we will follow along while he is in the hospital.
[2017-01-16] MEDS: SYMBICORT 160-4.5 MCG INHALER INHALATION SCH (09:20)
[2017-01-16] MEDS: ISOSORBIDE MONONITRATE ER 60 MG TAB.ER.24H PO SCH (09:46)
[2017-01-16] MEDS: TRIAMCINOLONE 0.1% CREAM 80 GM TUBE TOPICAL SCH ×2 (09:46→15:56)
[2017-01-16] MEDS: FOLIC ACID-VIT B COMPLEX-VIT C 1 CAP PO SCH (09:46)
[2017-01-16] MEDS: ASPIRIN 81 MG PO SCH (09:46)
[2017-01-16] MEDS: NYSTATIN 100,000UNIT/GM CREAM 30 GM TUBE TOPICAL SCH ×2 (09:46→15:56)
[2017-01-16] MEDS: amLODIPine 10 MG TAB PO SCH (09:46)
[2017-01-16] MEDS: FERROUS SULFATE 325 MG TAB PO SCH ×3 (09:47→18:01)
[2017-01-16] MEDS: CARVEDILOL 12.5 MG TAB PO SCH ×2 (09:47→16:06)
[2017-01-16] MEDS: SODIUM BICARBONATE TAB 650 MG TAB PO SCH ×2 (09:47→15:56)
[2017-01-16] MEDS: HYDROcodone/APAP 5-325MG 1 EACH TAB PO PRN ×3 (09:48→22:29)
[2017-01-16 11:32] LABS: Glucose,Whole Blood 172 mg/dL (75-99)
[2017-01-16] MEDS: NOVOLOG SQ SCH ×5 (12:08→21:15)
[2017-01-16] MEDS ORDERED: INSULN ASP PRT/INSULIN ASPART 100 UNIT/ML 10 ML VIAL SQ SCH (12:30)
--- NOTE | 2017-01-16 14:20 | P.PN ---
Subjective Patient was admitted secondary to volume overload and hyperkalemia is again secondary to missing hemodialysis patient was reassured back on hemodialysis about 3 L of fluid. Constitutional: Denied any fatigue denied any fever. Cardio vascular: denied any chest pain, palpitations Gastrointestinal denied any nausea vomiting Pulmonary: Denied any shortness of breath cough Neurologic denied any new focal deficits Objective - Vital Signs Vital signs: Vital Signs Temp 98.2 F 01/16/17 13:45 Pulse 68 01/16/17 13:45 Resp 18 01/16/17 13:45 BP 110/52 01/16/17 13:45 Pulse Ox 94 L 01/16/17 13:45 Intake & Output 01/15/17 01/16/17 01/16/17 18:59 06:59 18:59 Intake Total 236 60 180 Balance 236 60 180 Weight 98.883 kg 103 kg Intake: Oral 236 60 180 - Exam GENERAL: The patient is alert and oriented x3, not in any acute distress. Appears to be tired and weak HEENT: Pupils are round and equally reacting to light. EOMI. No scleral icterus. No conjunctival pallor. Normocephalic, atraumatic. No pharyngeal erythema. No thyromegaly. CARDIOVASCULAR: S1 and S2 present. No murmurs, rubs, or gallops. PULMONARY: Chest is clear to auscultation, no wheezing or crackles in bilateral lower lung bases ABDOMEN: Soft, nontender, nondistended, normoactive bowel sounds. No palpable organomegaly. MUSCULOSKELETAL: No joint swelling or deformity. EXTREMITIES: No cyanosis, clubbing, extensive edema bilateral lower limbs NEUROLOGICAL: Gross neurological examination did not reveal any focal deficits. SKIN: No rashes. - Labs CBC & Chem 7: 01/16/17 06:19 01/16/17 06:19 Labs: Abnormal Lab Results - Last 24 Hours (Table) 01/15/17 01/15/17 01/16/17 Range/Units 16:21 21:18 06:02 RBC (4.30-5.90) m/uL Hgb (13.0-17.5) gm/dL Hct (39.0-53.0) % MCHC (31.0-37.0) g/dL RDW (11.5-15.5) % Lymphocytes # (1.0-4.8) k/uL Sodium (137-145) mmol/L Chloride (98-107) mmol/L BUN (9-20) mg/dL Creatinine (0.66-1.25) mg/dL Glucose (74-99) mg/dL POC Glucose (mg/dL) 434 H 313 H 188 H (75-99) mg/dL Calcium (8.4-10.2) mg/dL Phosphorus (2.5-4.5) mg/dL Total Bilirubin (0.2-1.3) mg/dL Alkaline Phosphatase (38-126) U/L Total Protein (6.3-8.2) g/dL Albumin (3.5-5.0) g/dL Crossmatch 01/16/17 01/16/17 01/16/17 Range/Units 06:19 06:19 11:19 RBC 2.27 L (4.30-5.90) m/uL Hgb 6.8 L* (13.0-17.5) gm/dL Hct 22.2 L (39.0-53.0) % MCHC 30.4 L (31.0-37.0) g/dL RDW 15.7 H (11.5-15.5) % Lymphocytes # 0.7 L (1.0-4.8) k/uL Sodium 131 L (137-145) mmol/L Chloride 93 L (98-107) mmol/L BUN 45 H (9-20) mg/dL Creatinine 4.46 H (0.66-1.25) mg/dL Glucose 167 H (74-99) mg/dL POC Glucose (mg/dL) (75-99) mg/dL Calcium 8.1 L (8.4-10.2) mg/dL Phosphorus 6.4 H (2.5-4.5) mg/dL Total Bilirubin 3.3 H (0.2-1.3) mg/dL Alkaline Phosphatase 1268 H (38-126) U/L Total Protein 5.3 L (6.3-8.2) g/dL Albumin 2.4 L (3.5-5.0) g/dL Crossmatch See Detail 01/16/17 Range/Units 11:31 RBC (4.30-5.90) m/uL Hgb (13.0-17.5) gm/dL Hct (39.0-53.0) % MCHC (31.0-37.0) g/dL RDW (11.5-15.5) % Lymphocytes # (1.0-4.8) k/uL Sodium (137-145) mmol/L Chloride (98-107) mmol/L BUN (9-20) mg/dL Creatinine (0.66-1.25) mg/dL Glucose (74-99) mg/dL POC Glucose (mg/dL) 172 H (75-99) mg/dL Calcium (8.4-10.2) mg/dL Phosphorus (2.5-4.5) mg/dL Total Bilirubin (0.2-1.3) mg/dL Alkaline Phosphatase (38-126) U/L Total Protein (6.3-8.2) g/dL Albumin (3.5-5.0) g/dL Crossmatch Assessment and Plan Plan: #1 generalized weakness and tiredness: Secondary to missing hemodialysis. #2 pulmonary edema secondary to wall volume overload from missing her dialysis. Ruled out patient is feeling much better today #3 hyponatremia secondary to hypervolemic hyponatremia improved with hemodialysis #4 hyperkalemia improved #5 elevated troponin due to chronic kidney dysfunction. Patient doesn't have any chest pain. #6 anemia of chronic kidney disease #7 diabetes with us type II with erosive gastroparesis. #8 hypertension hold off minoxidil, hydralazine because of low blood pressure. #9 COPD: Without any acute exacerbation #10 gastroesophageal reflux disease #11 hyperlipidemia Patient will be initiated back on his appropriate home medications. Kayexalate for hyperkalemia hemodialysis today
[2017-01-16 17:03] LABS: Glucose,Whole Blood 106 mg/dL (75-99)
[2017-01-16 18:12] LABS: Amorphous Sediment,Urine Few /hpf; Appearance,Urine Cloudy (Clear); Bilirubin,Urine Negative (Negative); Glucose,Urine (UA) 3+ (Negative); Ketones,Urine Negative (Negative); Leukocyte Esterase,Urine Large (Negative); Nitrite,Urine Negative (Negative); PH, Urine 5.5 (5.0-8.0); Particle Count 10516; Protein,Urine 1+ (Negative); Squamous Epithelial Cell,Urine 7 /hpf (0-4); UA Billing (MACRO vs. MICRO) MICRO; Urobilinogen,Urine <2.0 mg/dL (<2.0); WBC,Urine 17 /hpf (0-5)
[2017-01-16 20:39] LABS: Glucose,Whole Blood 117 mg/dL (75-99)
[2017-01-16] MEDS ORDERED: HEPARIN SODIUM,PORCINE 5,000 UNIT/ML 1 ML VIAL ONE (21:10)
[2017-01-16] MEDS: INSULIN GLARGINE 100 UNIT/ML 10 ML VIAL SQ SCH (21:15)
[2017-01-17] MEDS: HYDROcodone/APAP 5-325MG 1 EACH TAB PO PRN ×5 (01:10→22:48)
[2017-01-17] MEDS ORDERED: DARBEPOETIN ALFA 60 MCG/0.3 ML SYRINGE SQ SCH (06:00)
[2017-01-17] MEDS: hydrALAZINE HCL 50 MG TAB PO SCH ×3 (06:29→20:45)
[2017-01-17] MEDS: cloNIDine HCL 0.2 MG TAB PO SCH (06:32)
[2017-01-17] MEDS: LEVOTHYROXINE 112 MCG TAB PO SCH (06:32)
[2017-01-17 07:01] LABS: Glucose,Whole Blood 132 mg/dL (75-99)
[2017-01-17] MEDS: METOCLOPRAMIDE 5 MG TAB PO SCH ×3 (07:11→17:31)
[2017-01-17] MEDS: NOVOLOG SQ SCH ×7 (07:12→20:48)
[2017-01-17] MEDS: PANTOPRAZOLE 40 MG TABLET PO SCH (07:13)
[2017-01-17] MEDS: SEVELAMER 800 MG TAB PO SCH ×3 (07:15→17:33)
[2017-01-17] MEDS: DOCUSATE 100 MG CAP PO SCH ×2 (07:15→16:25)
[2017-01-17] MEDS: ASPIRIN 81 MG PO SCH (07:16)
[2017-01-17] MEDS: TRIAMCINOLONE 0.1% CREAM 80 GM TUBE TOPICAL SCH ×2 (07:17→17:32)
[2017-01-17] MEDS: FOLIC ACID-VIT B COMPLEX-VIT C 1 CAP PO SCH (07:17)
[2017-01-17] MEDS: NYSTATIN 100,000UNIT/GM CREAM 30 GM TUBE TOPICAL SCH ×2 (07:18→17:32)
[2017-01-17] MEDS: ISOSORBIDE MONONITRATE ER 60 MG TAB.ER.24H PO SCH (07:25)
[2017-01-17] MEDS: amLODIPine 10 MG TAB PO SCH (07:25)
[2017-01-17] MEDS: SODIUM BICARBONATE TAB 650 MG TAB PO SCH ×2 (07:26→16:25)
[2017-01-17 08:13] LABS: Calcium 8.2 mg/dL (8.4-10.2); Potassium 4.1 mmol/L (3.5-5.1); Total Bilirubin 3.2 mg/dL (0.2-1.3); Total Protein 5.8 g/dL (6.3-8.2)
[2017-01-17] MEDS: SYMBICORT 160-4.5 MCG INHALER INHALATION SCH (09:19)
[2017-01-17] MEDS: FERROUS SULFATE 325 MG TAB PO SCH ×3 (09:39→17:27)
[2017-01-17] MEDS: CARVEDILOL 12.5 MG TAB PO SCH ×2 (09:40→17:33)
[2017-01-17] MEDS: ONDANSETRON 4 MG TAB PO PRN ×2 (10:12→18:08)
[2017-01-17 10:33] LABS: Anisocytosis Slight; Basophils % (A) 0 %; CHCM 30.7; Eosinophils # (A) 0.7 k/uL (0-0.7); Eosinophils % (A) 9 %; HCT 25.6 % (39.0-53.0); HDW 3.33; HGB 7.7 gm/dL (13.0-17.5); Hypochromasia Moderate; Luc # (Auto) 0.16; Luc % (Auto) 2; Lymphocytes # (A) 0.5 k/uL (1.0-4.8); Lymphocytes % (A) 7 %; MCH 29.7 pg (25.0-35.0); MCHC 30.1 g/dL (31.0-37.0); MCV 98.8 fL (80.0-100.0); Macrocytosis Slight; Mean Platelet Volume 7.7; Monocytes # (A) 0.8 k/uL (0-1.0); Monocytes % (A) 11 %; Neutrophils # (A) 5.2 k/uL (1.3-7.7); Neutrophils % (A) 71 %; RBC 2.59 m/uL (4.30-5.90); RDW 16.7 % (11.5-15.5); WBC 7.4 k/uL (3.8-10.6); WBC (Perox) 7.12
[2017-01-17] MEDS ORDERED: cloNIDine HCL 0.2 MG TAB PO SCH (11:00)
--- NOTE | 2017-01-17 11:22 | P.PN ---
Subjective Patient was admitted secondary to volume overload and hyperkalemia is again secondary to missing hemodialysis patient was reassured back on hemodialysis about 3 L of fluid. Jan 17, 2017 This is feeling much better today, probably metastasis tomorrow after which patient will be discharged to subacute rehabitation tomorrow. Constitutional: Denied any fatigue denied any fever. Cardio vascular: denied any chest pain, palpitations Gastrointestinal denied any nausea vomiting Pulmonary: Denied any shortness of breath cough Neurologic denied any new focal deficits Objective - Vital Signs Vital signs: Vital Signs Temp 97.4 F L 01/17/17 09:37 Pulse 77 01/17/17 10:36 Resp 16 01/17/17 10:36 BP 127/60 01/17/17 09:37 Pulse Ox 99 01/17/17 09:37 Intake & Output 01/16/17 01/17/17 01/17/17 19:59 06:59 18:59 Intake Total Balance Weight Intake: Oral Blood Product Rc As-1 Unit [id number] Other: Voiding Method Urinal # Voids - Exam GENERAL: The patient is alert and oriented x3, not in any acute distress. Appears to be tired and weak HEENT: Pupils are round and equally reacting to light. EOMI. No scleral icterus. No conjunctival pallor. Normocephalic, atraumatic. No pharyngeal erythema. No thyromegaly. CARDIOVASCULAR: S1 and S2 present. No murmurs, rubs, or gallops. PULMONARY: Chest is clear to auscultation, no wheezing or crackles in bilateral lower lung bases ABDOMEN: Soft, nontender, nondistended, normoactive bowel sounds. No palpable organomegaly. MUSCULOSKELETAL: No joint swelling or deformity. EXTREMITIES: No cyanosis, clubbing, extensive edema bilateral lower limbs NEUROLOGICAL: Gross neurological examination did not reveal any focal deficits. SKIN: No rashes. - Labs CBC & Chem 7: 01/17/17 07:27 01/17/17 07:27 Labs: Abnormal Lab Results - Last 24 Hours (Table) 01/16/17 01/16/17 01/16/17 Range/Units 11:19 16:59 17:30 RBC (4.30-5.90) m/uL Hgb (13.0-17.5) gm/dL Hct (39.0-53.0) % MCHC (31.0-37.0) g/dL RDW (11.5-15.5) % Lymphocytes # (1.0-4.8) k/uL Sodium (137-145) mmol/L Chloride (98-107) mmol/L BUN (9-20) mg/dL Creatinine (0.66-1.25) mg/dL Glucose (74-99) mg/dL POC Glucose (mg/dL) 106 H (75-99) mg/dL Calcium (8.4-10.2) mg/dL Total Bilirubin (0.2-1.3) mg/dL Alkaline Phosphatase (38-126) U/L Total Protein (6.3-8.2) g/dL Albumin (3.5-5.0) g/dL Urine Protein 1+ H (Negative) Urine Glucose (UA) 3+ H (Negative) Ur Leukocyte Esterase Large H (Negative) Urine WBC 17 H (0-5) /hpf Ur Squamous Epith Cells 7 H (0-4) /hpf Amorphous Sediment Few H (None) /hpf Crossmatch See Detail 01/16/17 01/17/17 01/17/17 Range/Units 20:36 06:58 07:27 RBC (4.30-5.90) m/uL Hgb (13.0-17.5) gm/dL Hct (39.0-53.0) % MCHC (31.0-37.0) g/dL RDW (11.5-15.5) % Lymphocytes # (1.0-4.8) k/uL Sodium 136 L (137-145) mmol/L Chloride 97 L (98-107) mmol/L BUN 31 H (9-20) mg/dL Creatinine 3.48 H (0.66-1.25) mg/dL Glucose 127 H (74-99) mg/dL POC Glucose (mg/dL) 117 H 132 H (75-99) mg/dL Calcium 8.2 L (8.4-10.2) mg/dL Total Bilirubin 3.2 H (0.2-1.3) mg/dL Alkaline Phosphatase 1361 H (38-126) U/L Total Protein 5.8 L (6.3-8.2) g/dL Albumin 2.5 L (3.5-5.0) g/dL Urine Protein (Negative) Urine Glucose (UA) (Negative) Ur Leukocyte Esterase (Negative) Urine WBC (0-5) /hpf Ur Squamous Epith Cells (0-4) /hpf Amorphous Sediment (None) /hpf Crossmatch 01/17/17 Range/Units 07:27 RBC 2.59 L (4.30-5.90) m/uL Hgb 7.7 L (13.0-17.5) gm/dL Hct 25.6 L (39.0-53.0) % MCHC 30.1 L (31.0-37.0) g/dL RDW 16.7 H (11.5-15.5) % Lymphocytes # 0.5 L (1.0-4.8) k/uL Sodium (137-145) mmol/L Chloride (98-107) mmol/L BUN (9-20) mg/dL Creatinine (0.66-1.25) mg/dL Glucose (74-99) mg/dL POC Glucose (mg/dL) (75-99) mg/dL Calcium (8.4-10.2) mg/dL Total Bilirubin (0.2-1.3) mg/dL Alkaline Phosphatase (38-126) U/L Total Protein (6.3-8.2) g/dL Albumin (3.5-5.0) g/dL Urine Protein (Negative) Urine Glucose (UA) (Negative) Ur Leukocyte Esterase (Negative) Urine WBC (0-5) /hpf Ur Squamous Epith Cells (0-4) /hpf Amorphous Sediment (None) /hpf Crossmatch Assessment and Plan Plan: #1 generalized weakness and tiredness: Secondary to missing hemodialysis. #2 pulmonary edema secondary to wall volume overload from missing her dialysis. Ruled out patient is feeling much better today #3 hyponatremia secondary to hypervolemic hyponatremia improved with hemodialysis #4 hyperkalemia improved #5 elevated troponin due to chronic kidney dysfunction. Patient doesn't have any chest pain. #6 anemia of chronic kidney disease #7 diabetes with us type II with erosive gastroparesis. #8 hypertension hold off minoxidil, hydralazine dose was decreased #9 COPD: Without any acute exacerbation #10 gastroesophageal reflux disease #11 hyperlipidemia Patient is clinically doing well clonidine dose will be tapered down patient blood pressure is better today
[2017-01-17 11:59] LABS: Glucose,Whole Blood 149 mg/dL (75-99)
--- NOTE | 2017-01-17 12:46 | P.PN ---
Subjective Progress Note Date: 01/17/17 Principal diagnosis: ESRD Since better today, tolerated dialysis well yesterday. No nausea vomiting or diarrhea. No hematemesis hematochezia or melena Objective - Vital Signs Vital signs: Vital Signs Temp 97.4 F L 01/17/17 09:37 Pulse 77 01/17/17 10:36 Resp 16 01/17/17 10:36 BP 127/60 01/17/17 09:37 Pulse Ox 99 01/17/17 09:37 Intake & Output 01/16/17 01/17/17 01/17/17 19:59 06:59 18:59 Intake Total Balance Weight Intake: Oral Blood Product Rc As-1 Unit [id number] Other: Voiding Method Urinal # Voids - Exam Lying in bed no acute distress S1-S2 heard Clear to auscultation Bilateral edema Jugular PermCath - Labs CBC & Chem 7: 01/17/17 07:27 01/17/17 07:27 Labs: Abnormal Lab Results - Last 24 Hours (Table) 01/16/17 01/16/17 01/16/17 Range/Units 11:19 16:59 17:30 RBC (4.30-5.90) m/uL Hgb (13.0-17.5) gm/dL Hct (39.0-53.0) % MCHC (31.0-37.0) g/dL RDW (11.5-15.5) % Lymphocytes # (1.0-4.8) k/uL Sodium (137-145) mmol/L Chloride (98-107) mmol/L BUN (9-20) mg/dL Creatinine (0.66-1.25) mg/dL Glucose (74-99) mg/dL POC Glucose (mg/dL) 106 H (75-99) mg/dL Calcium (8.4-10.2) mg/dL Total Bilirubin (0.2-1.3) mg/dL Alkaline Phosphatase (38-126) U/L Total Protein (6.3-8.2) g/dL Albumin (3.5-5.0) g/dL Urine Protein 1+ H (Negative) Urine Glucose (UA) 3+ H (Negative) Ur Leukocyte Esterase Large H (Negative) Urine WBC 17 H (0-5) /hpf Ur Squamous Epith Cells 7 H (0-4) /hpf Amorphous Sediment Few H (None) /hpf Crossmatch See Detail 01/16/17 01/17/17 01/17/17 Range/Units 20:36 06:58 07:27 RBC (4.30-5.90) m/uL Hgb (13.0-17.5) gm/dL Hct (39.0-53.0) % MCHC (31.0-37.0) g/dL RDW (11.5-15.5) % Lymphocytes # (1.0-4.8) k/uL Sodium 136 L (137-145) mmol/L Chloride 97 L (98-107) mmol/L BUN 31 H (9-20) mg/dL Creatinine 3.48 H (0.66-1.25) mg/dL Glucose 127 H (74-99) mg/dL POC Glucose (mg/dL) 117 H 132 H (75-99) mg/dL Calcium 8.2 L (8.4-10.2) mg/dL Total Bilirubin 3.2 H (0.2-1.3) mg/dL Alkaline Phosphatase 1361 H (38-126) U/L Total Protein 5.8 L (6.3-8.2) g/dL Albumin 2.5 L (3.5-5.0) g/dL Urine Protein (Negative) Urine Glucose (UA) (Negative) Ur Leukocyte Esterase (Negative) Urine WBC (0-5) /hpf Ur Squamous Epith Cells (0-4) /hpf Amorphous Sediment (None) /hpf Crossmatch 01/17/17 01/17/17 Range/Units 07:27 11:56 RBC 2.59 L (4.30-5.90) m/uL Hgb 7.7 L (13.0-17.5) gm/dL Hct 25.6 L (39.0-53.0) % MCHC 30.1 L (31.0-37.0) g/dL RDW 16.7 H (11.5-15.5) % Lymphocytes # 0.5 L (1.0-4.8) k/uL Sodium (137-145) mmol/L Chloride (98-107) mmol/L BUN (9-20) mg/dL Creatinine (0.66-1.25) mg/dL Glucose (74-99) mg/dL POC Glucose (mg/dL) 149 H (75-99) mg/dL Calcium (8.4-10.2) mg/dL Total Bilirubin (0.2-1.3) mg/dL Alkaline Phosphatase (38-126) U/L Total Protein (6.3-8.2) g/dL Albumin (3.5-5.0) g/dL Urine Protein (Negative) Urine Glucose (UA) (Negative) Ur Leukocyte Esterase (Negative) Urine WBC (0-5) /hpf Ur Squamous Epith Cells (0-4) /hpf Amorphous Sediment (None) /hpf Crossmatch Assessment and Plan Assessment: Impression: #1 ESRD MWF with a right jugular PermCath #2 noncompliance with dialysis treatments #3 volume overload secondary to missed dialysis status post emergent dialysis #4 hyperkalemia secondary to missed dialysis status post treatment. Currently controlled. #5 anemia multifactorial Recommendations: #1 plan hemodialysis tomorrow to put him back in to schedule. #2 iron studies pending, currently on DEVIKA and oral iron. #3 status post blood transfusion for anemia. Stable from nephrology point of view to be discharged to followed up in outpatient dialysis unit.
[2017-01-17] MEDS: cloNIDine HCL 0.1 MG TAB PO SCH ×2 (14:29→20:45)
[2017-01-17 16:57] LABS: Glucose,Whole Blood 121 mg/dL (75-99)
[2017-01-17] MEDS: AMMONIUM LACTATE 12% LOTION 225 GM BTL TOPICAL SCH (17:31)
[2017-01-17 20:42] LABS: Glucose,Whole Blood 157 mg/dL (75-99)
[2017-01-17] MEDS: INSULIN GLARGINE 100 UNIT/ML 10 ML VIAL SQ SCH (20:43)
[2017-01-17] MEDS: traZODone HCL 50 MG TAB PO SCH (20:45)
[2017-01-17] MEDS: ATORVASTATIN 10 MG TAB PO SCH (20:45)
[2017-01-18] MEDS: ALPRAZolam 0.5 MG TAB PO PRN ×2 (01:44→22:57)
[2017-01-18] MEDS: LEVOTHYROXINE 112 MCG TAB PO SCH (06:18)
[2017-01-18] MEDS: cloNIDine HCL 0.1 MG TAB PO SCH ×3 (06:18→21:17)
[2017-01-18] MEDS: hydrALAZINE HCL 50 MG TAB PO SCH ×3 (06:18→21:17)
[2017-01-18 07:24] LABS: Glucose,Whole Blood 196 mg/dL (75-99)
[2017-01-18] MEDS: HYDROcodone/APAP 5-325MG 1 EACH TAB PO PRN ×2 (07:24→15:41)
[2017-01-18 07:46] LABS: Calcium 8.5 mg/dL (8.4-10.2); Total Bilirubin 2.9 mg/dL (0.2-1.3)
[2017-01-18 07:53] LABS: Potassium 5.1 mmol/L (3.5-5.1)
[2017-01-18] MEDS: FOLIC ACID-VIT B COMPLEX-VIT C 1 CAP PO SCH (08:14)
[2017-01-18] MEDS: amLODIPine 10 MG TAB PO SCH (08:14)
[2017-01-18] MEDS: PANTOPRAZOLE 40 MG TABLET PO SCH (08:14)
[2017-01-18] MEDS: ASPIRIN 81 MG PO SCH (08:14)
[2017-01-18] MEDS: ISOSORBIDE MONONITRATE ER 60 MG TAB.ER.24H PO SCH (08:14)
[2017-01-18] MEDS: METOCLOPRAMIDE 5 MG TAB PO SCH ×3 (08:14→17:10)
[2017-01-18] MEDS: DOCUSATE 100 MG CAP PO SCH ×3 (08:14→15:42)
[2017-01-18] MEDS: SODIUM BICARBONATE TAB 650 MG TAB PO SCH ×2 (08:14→15:41)
[2017-01-18] MEDS: SEVELAMER 800 MG TAB PO SCH ×3 (08:14→17:10)
[2017-01-18] MEDS: FERROUS SULFATE 325 MG TAB PO SCH ×3 (08:15→17:10)
[2017-01-18] MEDS: CARVEDILOL 12.5 MG TAB PO SCH ×2 (08:15→17:10)
[2017-01-18] MEDS: NOVOLOG SQ SCH ×7 (08:19→21:18)
[2017-01-18] MEDS: IPRATROPIUM-ALBUTEROL 3 ML NEB INHALATION PRN ×2 (08:38→15:42)
[2017-01-18] MEDS: SYMBICORT 160-4.5 MCG INHALER INHALATION SCH (08:38)
[2017-01-18] MEDS ORDERED: POLYETHYLENE GLYCOL 3350 17 GM POWD.PACK PO SCH (09:00)
[2017-01-18] MEDS: ONDANSETRON 4 MG TAB PO PRN ×2 (09:11→17:09)
[2017-01-18 11:16] LABS: Glucose,Whole Blood 170 mg/dL (75-99)
[2017-01-18] MEDS: AMMONIUM LACTATE 12% LOTION 225 GM BTL TOPICAL SCH ×2 (13:12→21:20)
[2017-01-18] MEDS: TRIAMCINOLONE 0.1% CREAM 80 GM TUBE TOPICAL SCH ×2 (13:13→15:42)
[2017-01-18] MEDS: NYSTATIN 100,000UNIT/GM CREAM 30 GM TUBE TOPICAL SCH ×2 (13:13→15:42)
[2017-01-18 16:54] LABS: Glucose,Whole Blood 155 mg/dL (75-99)
--- NOTE | 2017-01-18 17:32 | P.PN ---
Progress Note - Text Progress Note Date: 01/18/17 DATE OF SERVICE: 01/18/2017 PRESENTING COMPLAINT: Volume overload and weakness HISTORY OF PRESENT ILLNESS: 37-year-old male with multiple medical problems, on hemodialysis Wednesday, resident [facility], present to the emergency department with weakness and had missed 2 days of hemodialysis as well as reports that his hemoglobin below 6.0. On admission hemoglobin was 7.1. Found to be in fluid overload, hyponatremic, hyperkalemic and was admitted for the same. INTERVAL HISTORY: 01/18/2017: Patient seen in follow-up today lying in bed appears comfortable. Not able to tolerate his breakfast this morning, was nauseated did not throw up however could not eat. Zofran given. Scheduled for hemodialysis today. REVIEW OF SYSTEMS: Done for constitutional ,cardiovascular, GI, pulmonary with relevant findings as above. CURRENT MEDICATIONS Tylenol, [place], DuoNeb, Xanax, Norvasc 10 mg by mouth daily, aspirin, Lipitor, budesonide/formoterol, Coreg 25 mg by mouth twice a day, Catapres 0.1 mg by mouth 3 times a day, Aranesp 60 micrograms subcu Sundays, Colace, Feosol, Apresoline 50 mg by mouth 3 times a day, Lantus 20 units subcu at bedtime, Imdur 60 mg by mouth daily, Synthroid 112 g by mouth daily, Imodium, Reglan 5 mg by mouth before meals 3 times a day, NovoLog 4 units subcu before meals 3 times a day, Protonix, MiraLAX, Renvela 800 mg by mouth before meals 3 times a day, sodium bicarbonate 650 mg by mouth twice a day. PHYSICAL EXAM VITAL SIGNS: Temperature 98.4, pulse 85, respiratory rate 16, blood pressure 167/110, oxygen saturation 98% on 2 L GENERAL APPEARANCE: Lying in bed, not in distress. EYES: Pupils equal. Conjunctiva normal. NECK: JVD not raised. Mass not palpable. RESPIRATORY: Respiratory effort normal. Lungs diminished to auscultation. CARDIOVASCULAR: First and second sounds normal. Gross edema to lower extremities ABDOMEN: Soft. Liver and spleen not palpable. No tenderness. No mass palpable. PSYCHIATRY: Alert and oriented x3. Mood and affect a bit down. INVESTIGATIONS: Sodium 135, potassium 5.1, BUN 41, creatinine 4.00, Accu-Cheks noted. Total bilirubin 2.9, alkaline phosphatase 1263, ASSESSMENT: -Asthenia secondary to missed hemodialysis -Persistent nausea, multifactorial, coudl be from esophagitis flare up of diabetic gastroparesis -Generalized weakness and tiredness secondary to missing hemodialysis, improved -Normocytic anemia, secondary to chronic kidney disease. -Erosive esophagitis/ Carver's esophagus. -Diabetic gastroparesis. -End-stage kidney disease on hemodialysis secondary to diabetic nephropathy. -Diabetes mellitus type 2 chronically on insulin causing peripheral neuropathy and diabetic nephropathy. -Chronic obstructive pulmonary disease in a smoker. -Chronic nicotine dependence, patient is a smoker. -Gastroesophageal reflux disease. -Essential hypertension. -Hyponatremia, likely hypoosmolar from kidney disease. -Chronic medical debility, patient is wheelchair-bound. -Chronic marijuana use for recreation previously. -Chronic congestive heart failure from diastolic dysfunction. Ejection fraction 55% to 60%. From hypertensive heart disease. -Adjustment disorder with depressed mood. PLAN: Due to patient's nausea will hold him back for returning to [facility] [place], we'll see how he does overnight. Will receive hemodialysis today. Plan of care discussed at the bedside with the patient. We will follow closely. CUPROUS CHLORIDE HELPER statement: Patient was seen and examined by nurse practitioner Katja Razo and all elements of the case discussed with attending Dr. Vega
[2017-01-18 20:55] LABS: Glucose,Whole Blood 140 mg/dL (75-99)
[2017-01-18] MEDS: INSULIN GLARGINE 100 UNIT/ML 10 ML VIAL SQ SCH (21:17)
[2017-01-18] MEDS: traZODone HCL 50 MG TAB PO SCH (21:17)
[2017-01-18] MEDS: ATORVASTATIN 10 MG TAB PO SCH (21:17)
--- NOTE | 2017-01-18 21:39 | PN ---
PROGRESS NOTE Patient is seen for followup for end-stage renal disease. He was admitted to the hospital after having missed 2 treatments as outpatient. The patient remained in fluid overload. He was dialyzed on Wednesday and then again on Wednesday and patient is scheduled for hemodialysis today as well. He is complaining of nausea. He just received medication for it. No active vomiting on her diarrhea or abdominal pain. PHYSICAL EXAMINATION: Blood pressure was a 167/110, heart rate 75 per minute patient is afebrile. Examination of the heart S1, S2. Examination lungs decreased breath sounds at bases. Abdomen is soft, nontender. Examination lower extremities shows chronic edema. GENERAL SUPERVISOR exam shows patient is not moving his lower extremities much, which is not new. Otherwise, he is alert and oriented x3. LABS SHOW: Sodium 135, potassium 5.1, BUN 41, serum creatinine 4.0. ASSESSMENT: 1. End-stage renal disease, on hemodialysis on a Wednesday, Wednesday, Wednesday schedule. 2. Fluid overload. The patient will be dialyzed today. He will be scheduled for his next treatment on Wednesday, which will be 01/20. 3. Nausea, possibly related to gastroparesis from diabetic gastroparesis. 4. Type 2 diabetes with peripheral neuropathy and nephropathy. 5. Chronic debility. 6. Anemia status post packed RBCs transfusion. No active bleeding noted at this time. Hemoglobin was 7.7 yesterday. PLAN: 1. Hemodialysis today. The patient could be discharged post dialysis if he remains stable. 2. We will obtain a set of CBC and a CBC in a.m. MMSTEVEN / HEIDE: [id number] /
--- NOTE | 2017-01-18 22:30 | PN ---
PROGRESS NOTE DATE OF SERVICE: 01/18/17 ATTENDING NOTE: Patient seen and examined by me. I discussed with nurse practitioner, Danni. This patient presented with having missed hemodialysis, was dialyzed. This morning patient had some nausea, vomiting once, not able to keep any food down. The patient is already on Reglan. PHYSICAL EXAMINATION: On examination, afebrile, pulse 84, respiratory rate 16, blood pressure 167/110. LUNGS: Decreased breath sounds. Cardiovascular first and second sounds normal. Psych awake answering questions. LABORATORY DATA: Potassium 5.1, Accu-Cheks are noted. IMPRESSION: 1. Asthenia secondary to missed hemodialysis. 2. Persistent nausea multifactorial could be from esophagitis flare up of diabetic gastroparesis. PLAN: Continue the patient on Reglan. We will give change the diet to soft bland and see how he does. Care was discussed with the patient. JAY JAYL / JASONN: [id number] /
[2017-01-19] MEDS: cloNIDine HCL 0.1 MG TAB PO SCH ×2 (05:54→13:16)
[2017-01-19] MEDS: hydrALAZINE HCL 50 MG TAB PO SCH ×2 (06:11→13:16)
[2017-01-19] MEDS: LEVOTHYROXINE 112 MCG TAB PO SCH (06:12)
[2017-01-19] MEDS: HYDROcodone/APAP 5-325MG 1 EACH TAB PO PRN (06:16)
[2017-01-19 06:46] LABS: Glucose,Whole Blood 86 mg/dL (75-99)
[2017-01-19 07:14] VITALS: RESP 18
[2017-01-19] MEDS: NOVOLOG SQ SCH ×4 (08:26→13:14)
[2017-01-19] MEDS: METOCLOPRAMIDE 5 MG TAB PO SCH ×2 (08:28→13:16)
[2017-01-19] MEDS: FOLIC ACID-VIT B COMPLEX-VIT C 1 CAP PO SCH (08:28)
[2017-01-19] MEDS: amLODIPine 10 MG TAB PO SCH (08:29)
[2017-01-19] MEDS: CARVEDILOL 12.5 MG TAB PO SCH (08:35)
[2017-01-19] MEDS: ASPIRIN 81 MG PO SCH (08:36)
[2017-01-19] MEDS: PANTOPRAZOLE 40 MG TABLET PO SCH (08:36)
[2017-01-19] MEDS: SEVELAMER 800 MG TAB PO SCH ×2 (08:36→13:16)
[2017-01-19] MEDS: SODIUM BICARBONATE TAB 650 MG TAB PO SCH (08:36)
[2017-01-19] MEDS: ISOSORBIDE MONONITRATE ER 60 MG TAB.ER.24H PO SCH (08:36)
[2017-01-19] MEDS: SYMBICORT 160-4.5 MCG INHALER INHALATION SCH (08:37)
[2017-01-19] MEDS: IPRATROPIUM-ALBUTEROL 3 ML NEB INHALATION PRN ×2 (08:37→11:44)
[2017-01-19] MEDS: FERROUS SULFATE 325 MG TAB PO SCH ×2 (08:37→13:16)
[2017-01-19] MEDS: DOCUSATE 100 MG CAP PO SCH ×2 (08:38→15:44)
[2017-01-19] MEDS: NYSTATIN 100,000UNIT/GM CREAM 30 GM TUBE TOPICAL SCH (08:40)
[2017-01-19] MEDS: AMMONIUM LACTATE 12% LOTION 225 GM BTL TOPICAL SCH (08:40)
[2017-01-19] MEDS: TRIAMCINOLONE 0.1% CREAM 80 GM TUBE TOPICAL SCH (08:40)
[2017-01-19 09:51] LABS: Anisocytosis Slight; Basophils # (A) 0.1 k/uL (0-0.2); Basophils % (A) 1 %; CH 29.8; CHCM 30.5; Eosinophils # (A) 0.8 k/uL (0-0.7); Eosinophils % (A) 8 %; HCT 27.8 % (39.0-53.0); HDW 2.96; HGB 8.2 gm/dL (13.0-17.5); Hypochromasia Moderate; Luc # (Auto) 0.23; Luc % (Auto) 2; Lymphocytes # (A) 0.6 k/uL (1.0-4.8); Lymphocytes % (A) 6 %; MCH 29.1 pg (25.0-35.0); MCHC 29.5 g/dL (31.0-37.0); MCV 98.5 fL (80.0-100.0); Macrocytosis Slight; Monocytes # (A) 0.9 k/uL (0-1.0); Monocytes % (A) 8 %; Neutrophils # (A) 7.6 k/uL (1.3-7.7); Neutrophils % (A) 75 %; RBC 2.82 m/uL (4.30-5.90); RDW 16.4 % (11.5-15.5); WBC 10.2 k/uL (3.8-10.6); WBC (Perox) 10.58
[2017-01-19 10:04] LABS: Calcium 8.5 mg/dL (8.4-10.2); Potassium 3.9 mmol/L (3.5-5.1)
[2017-01-19 11:45] LABS: Glucose,Whole Blood 79 mg/dL (75-99)
--- NOTE | 2017-01-19 13:17 | P.DS ---
Providers Date of admission: 01/15/17 12:20 Expected date of discharge: 01/19/17 Attending physician: Pito Vega Consults: 01/15/17 12:20 Consult Physician Urgent Consulting Provider: Nicolle Barrett Consult Reason/Comments: Need for dialysis Do you want consulting provider notified?: Yes Primary care physician: Dex Doshi [place] [facility] Course: FINAL DIAGNOSES: -Asthenia secondary to missed hemodialysis -Persistent nausea, multifactorial, could be from esophagitis flare up of diabetic gastroparesis -Normocytic anemia, secondary to chronic kidney disease. -Erosive esophagitis/ Carver's esophagus. -Diabetic gastroparesis. -End-stage kidney disease on hemodialysis secondary to diabetic nephropathy. -Diabetes mellitus type 2 chronically on insulin causing peripheral neuropathy and diabetic nephropathy. -Chronic obstructive pulmonary disease in a smoker. -Chronic nicotine dependence, patient is a smoker. -Gastroesophageal reflux disease. -Essential hypertension. -Hyponatremia, likely hypoosmolar from kidney disease. -Chronic medical debility, patient is wheelchair-bound. -Chronic marijuana use for recreation previously. -Chronic congestive heart failure from diastolic dysfunction. Ejection fraction 55% to 60%. From hypertensive heart disease. -Adjustment disorder with depressed mood. HOSPTIAL COURSE: 37-year-old male with multiple medical problems on hemodialysis Wednesday and Wednesday resident at [facility] presented with weakness and missed 2 days of hemodialysis with a low hemoglobin. Was admitted for the same. Home medications reordered, nephrology consulted, emergent round of hemodialysis initiated. Fluid overload and laboratory values improved, experienced an episode of nausea, unable to eat meals. Reglan adjusted, Zofran provided, additional rounds of hemodialysis performed. Nausea and appetite improved. Nephrology spoke with the patient at length regarding the importance of not missing hemodialysis, patient verbalized understanding. Lying in bed, Patient tolerating his diet today, no nausea no vomiting, up with assistance, last BM . Patient cleared by center consultant and condition is stable to return to [facility]. PHYSICAL EXAM: CARDIOVASCULAR: First and second sound noted gross edema to feet and lower extremities RESPIRATORY: Effort normal, lungs diminished auscultation bilaterally GI: Abdomen soft nontender liver and spleen not palpable, no guarding or rigidity MUSKULOSKELETAL: Bilateral lower extremities weak, 3/5 bilateral strength PSYCHIATRY: Alert and oriented 3 mood and affect a bit flat. Patient was seen and examined by nurse practitioner Katja Razo in all elements of the case discussed with attending Dr. Vega DISPOSITION: Return to [facility] Patient Condition at Discharge: Stable Plan - Discharge Summary Discharge Rx Participant: No New Discharge Prescriptions: New Ammonium Lactate Lotion [Lac-Hydrin 12% Lotion] 1 applic TOPICAL BID applic Nystatin 100,000Unit/gm Cream [Mycostatin Cream] 1 tube TOPICAL BID@0800, 1600 #1 applic cloNIDine HCL [Catapres] 0.2 mg PO BID #60 tab Insulin Glargine [Lantus] 20 unit SQ HS #1 vial Triamcinolone 0.1% Cream [Kenalog] 1 applic TOPICAL BID@0800,1600 #1 tube Continue amLODIPine [Norvasc] 10 mg PO DAILY@0800 Aspirin EC [Ecotrin Low Dose] 81 mg PO DAILY@0800 Carvedilol [Coreg] 25 mg PO BID@0900,1700 Isosorbide Mononitrate ER [Imdur] 60 mg PO DAILY@0800 Minoxidil 5 mg PO BID@0800,1600 Ondansetron [Zofran] 4 mg PO Q8HR PRN PRN Reason: Nausea Calcium Carbonate [Tums] 1,000 mg PO Q6H PRN PRN Reason: Heartburn Nitroglycerin Sl Tabs [Nitrostat] 0.4 mg SUBLINGUAL Q5M PRN PRN Reason: Chest Pain Ferrous Sulfate [Iron (65 MG Elemental)] 325 mg PO TID@0900,1300,1800 Budesonide/Formoterol Fumarate [Symbicort 160-4.5 Mcg Inhaler] 2 puff INHALATION RT-DAILY@0800 traZODone HCL 50 mg PO HS@2000 Omeprazole [PriLOSEC] 20 mg PO DAILY@0800 Folic Acid-Vit B Complex-Vit C [Nephrocaps] 1 mg PO DAILY@0800 Levothyroxine Sodium [Synthroid] 112 mcg PO DAILY@0600 Atorvastatin [Lipitor] 10 mg PO HS@2000 Metoclopramide [Reglan] 5 mg PO AC-TID #90 tab Polyethylene Glycol 3350 [Miralax] 17 gm PO MoWeFr@0900 powd.pack Acetaminophen Tab [Tylenol] 500 mg PO Q6H PRN PRN Reason: Headache Benzocaine/Menthol Lozeng [Cepacol lozenge] 1 lozenge MUCOUS MEM Q4HR PRN PRN Reason: Sore Throat Nystatin/Triamcin [Nystatin-Triamcinolone Cream] 1 applicate TOPICAL BID@0800 ,1600 Darbepoetin Kolby [Aranesp] 60 mcg SQ BILLINGS@0600 Loperamide [Imodium] 4 mg PO Q12H PRN #10 cap PRN Reason: Diarrhea Sodium Bicarbonate Tab 650 mg PO BID@0800,1600 Insulin Aspart [NovoLOG] 4 units SQ TID@0630,1130,1600 Sevelamer [Renvela] 800 mg PO AC-TID Ipratropium-Albuterol Nebulize [Duoneb 0.5 mg-3 mg/3 ml Soln] 3 ml INHALATION RT-Q4H PRN PRN Reason: SOB/Wheezing ALPRAZolam [Xanax] 0.5 mg PO Q8H PRN #20 tab PRN Reason: Anxiety HYDROcodone/APAP 5-325MG [[place] 5-325] 1 tab PO Q4HR PRN #20 tab PRN Reason: Pain Changed hydrALAZINE HCL [Apresoline] 50 mg PO TID@0600,1400,1999 #90 tablet Discontinued cloNIDine HCL 0.3 mg PO TID@0600,1400,1999 Docusate [Colace] 100 mg PO BID@0800,1600 Discharge Medication List Aspirin EC [Ecotrin Low Dose] 81 mg PO DAILY@0800 07/31/16 [History] Carvedilol [Coreg] 25 mg PO BID@0900,1700 07/31/16 [History] Isosorbide Mononitrate ER [Imdur] 60 mg PO DAILY@0800 07/31/16 [History] Minoxidil 5 mg PO BID@0800,1600 07/31/16 [History] amLODIPine [Norvasc] 10 mg PO DAILY@0800 07/31/16 [History] Atorvastatin [Lipitor] 10 mg PO HS@199912/18/16 [History] Budesonide/Formoterol Fumarate [Symbicort 160-4.5 Mcg Inhaler] 2 puff INHALATION RT-DAILY@0800 12/18/16 [History] Calcium Carbonate [Tums] 1,000 mg PO Q6H PRN 12/18/16 [History] Ferrous Sulfate [Iron (65 MG Elemental)] 325 mg PO TID@0900,1300,1800 12/18/16 [ History] Folic Acid-Vit B Complex-Vit C [Nephrocaps] 1 mg PO DAILY@0800 12/18/16 [History ] Levothyroxine Sodium [Synthroid] 112 mcg PO DAILY@0600 12/18/16 [History] Nitroglycerin Sl Tabs [Nitrostat] 0.4 mg SUBLINGUAL Q5M PRN 12/18/16 [History] Omeprazole [PriLOSEC] 20 mg PO DAILY@0800 12/18/16 [History] Ondansetron [Zofran] 4 mg PO Q8HR PRN 12/18/16 [History] traZODone HCL 50 mg PO HS@199912/18/16 [History] Metoclopramide [Reglan] 5 mg PO AC-TID #90 tab 12/31/16 [Rx] Polyethylene Glycol 3350 [Miralax] 17 gm PO MoWeFr@0900 powd.pack 12/31/16 [Rx] Acetaminophen Tab [Tylenol] 500 mg PO Q6H PRN 01/06/17 [History] Benzocaine/Menthol Lozeng [Cepacol lozenge] 1 lozenge MUCOUS MEM Q4HR PRN [History] Darbepoetin Kol[place] [Aranesp] 60 mcg SQ BILLINGS@0600 01/06/17 [History] Nystatin/Triamcin [Nystatin-Triamcinolone Cream] 1 applicate TOPICAL BID@0800, 1600 01/06/17 [History] Loperamide [Imodium] 4 mg PO Q12H PRN #10 cap 01/08/17 [Rx] Insulin Aspart [NovoLOG] 4 units SQ TID@0630,1130,1600 01/15/17 [History] Ipratropium-Albuterol Nebulize [Duoneb 0.5 mg-3 mg/3 ml Soln] 3 ml INHALATION RT -Q4H PRN 01/15/17 [History] Sevelamer [Renvela] 800 mg PO AC-TID 01/15/17 [History] Sodium Bicarbonate Tab 650 mg PO BID@0800,1600 01/15/17 [History] ALPRAZolam [Xanax] 0.5 mg PO Q8H PRN #20 tab 01/18/17 [Rx] Ammonium Lactate Lotion [Lac-Hydrin 12% Lotion] 1 applic TOPICAL BID applic 08/29 [Rx] HYDROcodone/APAP 5-325MG [[place] 5-325] 1 tab PO Q4HR PRN #20 tab 01/18/17 [Rx] Nystatin 100,000Unit/gm Cream [Mycostatin Cream] 1 tube TOPICAL BID@0800,1600 # 1 applic 01/18/17 [Rx] hydrALAZINE HCL [Apresoline] 50 mg PO TID@0600,1400,2000 #90 tablet 01/18/17 [Rx ] Insulin Glargine [Lantus] 20 unit SQ HS #1 vial 01/19/17 [Rx] Triamcinolone 0.1% Cream [Kenalog] 1 applic TOPICAL BID@0800,1600 #1 tube [Rx] cloNIDine HCL [Catapres] 0.2 mg PO BID #60 tab 01/19/17 [Rx] Follow up Appointment(s)/Referral(s): Dex Valverde MD [Primary Care Provider] - 01/19/17 Nicolle Barrett MD [STAFF PHYSICIAN] - 1 Week Ambulatory/Diagnostic Orders: Basic Metabolic Panel [LAB.AMB] Location: Determined By Patient Activity/Diet/Wound Care/Special Instructions: Consistent carbohydrate/renal diet(low potassium/low phosphorous) Discharge Disposition: TRANSFER TO SNF/ECF
[2017-01-19] MEDS ORDERED: GELATIN SPONGE,ABSORB (SMALL) 1 EACH SPONGE ONE (13:30)
[2017-01-19 15:06] VITALS: BP 165/97; PULSE 76; TEMP 97.7
[2017-01-19] MEDS: ALPRAZolam 0.5 MG TAB PO PRN (16:00)
--- NOTE | 2017-01-19 16:04 | DS ---
DISCHARGE SUMMARY DATE OF DISCHARGE: 01/19/2017. ATTENDING NOTE: The patient was seen and examined by me. Discussed with nurse practitioner, Ms. Razo. FINAL DIAGNOSES: 1. Fluid overload from missed hemodialysis. 2. Asthenia from missed hemodialysis. 3. Other medical problems. The patient is doing better. Tolerating his diet. Got hemodialysis yesterday. Overall prognosis is guarded. Blood pressure medications were adjusted. The patient will be going to the [facility]. MAGGY / HEIDE: [id number] /
--- NOTE | 2017-02-16 06:09 | DS ---
DISCHARGE SUMMARY Dictating addendum to discharge summary on Jasen Dunne. DATE OF DISCHARGE: 01/19/17. ADDENDUM: PHYSICAL EXAMINATION: LUNGS: Decreased breath sounds. Cardiovascular first and second sounds normal. MMODL / IJN: [id number] /
== END 2017-01-19 14:10 | DRG 425 ==
LOC: EC 10:48 → 6SEL 12:20 → 5MS5E 01-16 13:33
PROVIDERS: ADMIT Hospitalist; ATTEND Hospitalist
PROC: 5A1D70Z Performance of Urinary Filtration, Intermittent, Less than 6 Hours Per Day (ICD-10-PCS; principal; 2017-01-16)
PROC: 30263N1 (ICD-10-PCS; 2017-01-16)
DX: E87.70 Fluid overload, unspecified (principal); I13.2 Hypertensive heart and chronic kidney disease with heart failure and with stage 5 chronic kidney disease, or end stage renal disease; N18.6 End stage renal disease; E11.21 Type 2 diabetes mellitus with diabetic nephropathy; E11.42 Type 2 diabetes mellitus with diabetic polyneuropathy; I07.1 Rheumatic tricuspid insufficiency; I50.32 Chronic diastolic (congestive) heart failure; I95.9 Hypotension, unspecified; K22.10 Ulcer of esophagus without bleeding; K31.84 Gastroparesis; E11.43 Type 2 diabetes mellitus with diabetic autonomic (poly)neuropathy; E11.22 Type 2 diabetes mellitus with diabetic chronic kidney disease; K21.9 Gastro-esophageal reflux disease without esophagitis; F17.210 Nicotine dependence, cigarettes, uncomplicated; F12.90 Cannabis use, unspecified, uncomplicated; E87.5 Hyperkalemia; E03.9 Hypothyroidism, unspecified; D63.1 Anemia in chronic kidney disease; E78.5 Hyperlipidemia, unspecified; E87.1 Hypo-osmolality and hyponatremia; F43.21 Adjustment disorder with depressed mood; G89.29 Other chronic pain; M54.5 Low back pain; I49.3 Ventricular premature depolarization; J44.9 Chronic obstructive pulmonary disease, unspecified; R53.1 Weakness; Z91.15 Patient's noncompliance with renal dialysis; Z99.2 Dependence on renal dialysis; Z79.82 Long term (current) use of aspirin; Z79.4 Long term (current) use of insulin; Z79.51 Long term (current) use of inhaled steroids; Z79.899 Other long term (current) drug therapy; Z99.3 Dependence on wheelchair; Z88.5 Allergy status to narcotic agent; Z88.8 Allergy status to other drugs, medicaments and biological substances; Z91.040 Latex allergy status
CPT/HCPCS: 36415; 71010; 80048; 80053; 81001; 82550; 82553; 82728; 83540; 83550; 83735; 84100; 84484; 85025; 85610; 85730; 86850; 86900; 86901; 86920; 90935; 93005; 94640; 94760; 99285

== ENCOUNTER 2017-01-24 09:44 | Emergency (ER) | payer OTHER ==
[2017-01-24] MEDS ORDERED: IPRATROPIUM-ALBUTEROL 3 ML NEB INHALATION STA (09:46)
[2017-01-24] MEDS ORDERED: SODIUM CHLORIDE 0.9% 1,000 ML IV STA (09:46)
[2017-01-24] MEDS ORDERED: FUROSEMIDE 10 MG/ML 4 ML VIAL IV STA (09:47)
--- NOTE | 2017-01-24 09:50 | ED ---
SOB HPI - General Stated Complaint: Poss Pneumonia Time Seen by Provider: 01/24/17 09:44 Source: patient, EMS, RN notes reviewed, old records reviewed Mode of arrival: EMS - History of Present Illness Initial Comments: Is a 37-year-old male with a history of diabetes and kidney failure with dialysis who is [facility] in from a [facility] because of shortness of breath possible pneumonia cough. Patient developed a cough for last several days with some brown phlegm and worsening shortness of breath.. No overt fevers chills or sweats. His saturation 77% on his normal 3 L of oxygen showing improved to the mid to high 80s on 5 L. He has been refusing dialysis the last 2 times he was supposed to get it to. He is here for evaluation. MD Complaint: shortness of breath, cough - Related Data Home Medications Medication Instructions Recorded Confirmed Carvedilol [Coreg] 25 mg PO BID@0900,1700 07/31/16 01/24/17 Minoxidil 5 mg PO BID@0800,1600 07/31/16 01/24/17 amLODIPine [Norvasc] 10 mg PO DAILY@0800 07/31/16 01/24/17 Budesonide/Formoterol Fumarate 2 puff INHALATION RT-DAILY@0800 12/18/16 01/24/17 [Symbicort 160-4.5 Mcg Inhaler] Calcium Carbonate [Tums] 1,000 mg PO Q6H PRN 12/18/16 01/24/17 Ferrous Sulfate [Iron (65 MG 325 mg PO TID@0900,1300,1800 12/18/16 01/24/17 Elemental)] Levothyroxine Sodium [Synthroid] 112 mcg PO DAILY@0600 12/18/16 01/24/17 Nitroglycerin Sl Tabs [Nitrostat] 0.4 mg SUBLINGUAL Q5M PRN 12/18/16 01/24/17 Omeprazole [PriLOSEC] 20 mg PO DAILY@0800 12/18/16 01/24/17 Ondansetron [Zofran] 4 mg PO Q8HR PRN 12/18/16 01/24/17 traZODone HCL 50 mg PO HS@2000 12/18/16 01/24/17 Acetaminophen Tab [Tylenol] 500 mg PO Q6H PRN 01/06/17 01/24/17 Nystatin/Triamcin 1 applicate TOPICAL BID@0800,1600 01/06/17 01/24/17 [Nystatin-Triamcinolone Cream] Insulin Aspart [NovoLOG] See Protocol SQ ACHS 01/15/17 01/24/17 Ipratropium-Albuterol Nebulize 3 ml INHALATION RT-Q4H PRN 01/15/17 01/24/17 [Duoneb 0.5 mg-3 mg/3 ml Soln] Sevelamer [Renvela] 800 mg PO AC-TID 01/15/17 01/24/17 Sodium Bicarbonate Tab 650 mg PO BID@0800,1600 01/15/17 01/24/17 Benzocaine/Menthol Lozeng [Cepacol 1 lozenge MUCOUS MEM Q4H PRN 01/24/17 lozenge] cloNIDine HCL [Catapres] 0.2 mg PO BID 01/24/17 01/24/17 hydrALAZINE HCL [Apresoline] 50 mg PO TID 01/24/17 01/24/17 Previous Rx's Medication Instructions Recorded Metoclopramide [Reglan] 5 mg PO AC-TID #90 tab 12/31/16 Polyethylene Glycol 3350 [Miralax] 17 gm PO MoWeFr@0900 powd.pack 12/31/16 Loperamide [Imodium] 4 mg PO Q12H PRN #10 cap 01/08/17 ALPRAZolam [Xanax] 0.5 mg PO Q8H PRN #20 tab 01/18/17 Ammonium Lactate Lotion 1 applic TOPICAL BID applic 01/18/17 [Lac-Hydrin 12% Lotion] HYDROcodone/APAP 5-325MG [Blackstock 1 tab PO Q4HR PRN #20 tab 01/18/17 5-325] Nystatin 100,000Unit/gm Cream 1 tube TOPICAL BID@0800,1600 #1 01/18/17 [Mycostatin Cream] applic Insulin Glargine [Lantus] 20 unit SQ HS #1 vial 01/19/17 Triamcinolone 0.1% Cream [Kenalog] 1 applic TOPICAL BID@0800,1600 #1 01/19/17 tube Allergies Allergy/AdvReac Type Severity Reaction Status Date / Time insulin isophane (NPH) Allergy Unknown Verified 01/24/17 10:20 insulin lispro [From Humalog] Allergy Swelling Verified 01/24/17 10:20 insulin regular Allergy Unknown Verified 01/24/17 10:20 [From Humulin R U-100] insulin zinc Allergy Unknown Verified 01/24/17 10:20 latex Allergy Rash/Hives Verified 01/24/17 10:20 tramadol AdvReac Nausea & Verified 01/24/17 10:20 Vomiting Review of Systems ROS Statement: Those systems with pertinent positive or pertinent negative responses have been documented in the HPI. ROS Other: All systems not noted in ROS Statement are negative. Past Medical History Past Medical History: Heart Failure, COPD, Diabetes Mellitus, GERD/Reflux, Hypertension, Renal Disease, Thyroid Disorder Additional Past Medical History / Comment(s): Pt recently admitted to [facility] on with chest wall pain and had echo which showed severe tricuspid regurgitation with EF 55-60%. Other hx: IDDM type II, diabetic gastroparesis , peripheral neuropathy-hands and feet, diabetic nephroparesis-ESRD with dialysis //wed-last went 01/11/17, normocytic anemia, chronic low back pain, enlarged heart, murmur, hypothyroid, History of Any Multi-Drug Resistant Organisms: None Reported Past Surgical History: Orthopedic Surgery Additional Past Surgical History / Comment(s): LT WRIST FISTULA, right chest hemodialysis port, R hand surgery. Past Anesthesia/Blood Transfusion Reactions: No Reported Reaction Additional Past Anesthesia/Blood Transfusion Reaction / Comment(s): PAT BLOOD TRANSFUSION-NO REACTION Smoking Status: Current every day smoker - Past Family History Mother Family Medical History: Cancer Additional Family Medical History / Comment(s): COLON CANCER Brother(s) Family Medical History: Diabetes Mellitus Father Family Medical History: Diabetes Mellitus, Hyperlipidemia, Hypertension, Myocardial Infarction ([place]) Additional Family Medical History / Comment(s): CARDIAC PROBLEMS AND HAD A CARDIO PULMONARY ARREST General Exam - General Exam Comments Initial Comments: This a well-developed well-nourished awake but somewhat lethargic male he appears be oriented 3 General appearance: alert, lethargic Head exam: Present: atraumatic, normocephalic, normal inspection Eye exam: Present: normal appearance, PERRL, EOMI. Absent: scleral icterus, conjunctival injection, periorbital swelling ENT exam: Present: mucous membranes dry Neck exam: Present: normal inspection. Absent: tenderness, meningismus, lymphadenopathy Respiratory exam: Present: rhonchi, decreased breath sounds. Absent: respiratory distress, wheezes, rales, stridor Cardiovascular Exam: Present: regular rate, normal rhythm, normal heart sounds. Absent: systolic murmur, diastolic murmur, rubs, gallop, clicks GI/Abdominal exam: Present: soft, normal bowel sounds. Absent: distended, tenderness, guarding, rebound, rigid Rectal exam: Present: deferred Extremities exam: Present: full ROM, normal capillary refill, pedal edema, other (Stasis changes with some weeping noted edema is significant). Absent: tenderness, joint swelling, calf tenderness Back exam: Present: normal inspection Neurological exam: Present: alert, oriented X3, CN II-XII intact Psychiatric exam: Present: normal affect, normal mood Skin exam: Present: warm, dry. Absent: rash Course Vital Signs 01/24/17 01/24/17 01/24/17 09:46 10:34 10:44 Temperature 97 F L Pulse Rate 75 72 71 Respiratory 22 Rate Blood Pressure 131/62 O2 Sat by Pulse 100 Oximetry 01/24/17 10:50 Temperature Pulse Rate Respiratory 16 Rate Blood Pressure 132/64 O2 Sat by Pulse 95 Oximetry - Reevaluation(s) Reevaluation #1: 01/24/17 13:36 The case was initially discussed with Katja from Dr. Vega's service also with Dr. Way patient was in CHF/pulmonary edema in a needed dialysis due to his noncompliance. The plan was to admit the patient and begin dialysis urgently. Reevaluation #2: 01/24/17 13:38 The patient had maintained vital signs and was suddenly noted to be pulseless and apneic. CPR/ACLS protocol was started. Patient was intubated by ct and ACLS protocol with chest compressions were started. Patient was in asystole. His persisted for approximately 15 minutes in spite of treatment the patient remained in asystole pulseless apneic. He was pronounced at 1330 2 PM. Procedures - Intubation Time Out Performed: No (Constant attendance) Laryngoscope: Pagan Size: 3 ET Tube Size: 8 ET Tube Uncuffed: No (Cuffed) Tube Secured Depth (cm): 23 Tube Placement Confirmation: visualized tube passing through cords, no breath sounds over epigastrium, confirmation by capnometry Patient Tolerated Procedure: well Intubation Complications: none Medical Decision Making - Medical Decision Making The initial plan was to admit the patient for pulmonary edema/CHF with dialysis pending. Dr. Leal was involved and dialysis is being set up. The patient with asystole and ACLS protocol was begun including intubation. The patient wouldn't did not return to spontaneous pulses heart or lung activity. I did discuss case with Dr. Vega who is agreed to accept the doesn't have given the patient at 1340 2 PM I did discuss the case with Dr. Oneill approximately 5 minutes later and the medical payment poster's office approximately 10 minutes after that. The patient will be released from the medical payment poster point of view. - Lab Data Result diagrams: 01/24/17 10:00 01/24/17 10:00 Lab Results 01/24/17 01/24/17 01/24/17 Range/Units 10:00 10:00 10:00 WBC 13.8 H (3.8-10.6) k/uL RBC 2.40 L (4.30-5.90) m/uL Hgb 7.1 L (13.0-17.5) gm/dL Hct 23.2 L (39.0-53.0) % MCV 96.4 (80.0-100.0) fL MCH 29.4 (25.0-35.0) pg MCHC 30.5 L (31.0-37.0) g/dL RDW 16.7 H (11.5-15.5) % Plt Count 392 (150-450) k/uL Neutrophils % 86 % Lymphocytes % 3 % Monocytes % 7 % Eosinophils % 2 % Basophils % 1 % Neutrophils # 11.8 H (1.3-7.7) k/uL Lymphocytes # 0.5 L (1.0-4.8) k/uL Monocytes # 0.9 (0-1.0) k/uL Eosinophils # 0.3 (0-0.7) k/uL Basophils # 0.1 (0-0.2) k/uL Hypochromasia Marked Anisocytosis Slight PT (9.0-12.0) sec INR (<1.2) APTT (22.0-30.0) sec Sodium 131 L (137-145) mmol/L Potassium 5.7 H (3.5-5.1) mmol/L Chloride 95 L (98-107) mmol/L Carbon Dioxide 15 L (22-30) mmol/L Anion Gap 21 mmol/L BUN 101 H* (9-20) mg/dL Creatinine 6.46 H* (0.66-1.25) mg/dL Est GFR (MDRD) Af Amer 12 (>60 ml/min/1.73 sqM) Est GFR (MDRD) Non-Af 10 (>60 ml/min/1.73 sqM) Glucose 312 H (74-99) mg/dL Calcium 8.8 (8.4-10.2) mg/dL Magnesium 1.8 (1.6-2.3) mg/dL Total Bilirubin 1.9 H (0.2-1.3) mg/dL AST 21 (17-59) U/L ALT 22 (21-72) U/L Alkaline Phosphatase 683 H (38-126) U/L Total Creatine Kinase 35 L (55-170) U/L CK-MB (CK-2) 6.5 H* (0.0-2.4) ng/mL CK-MB (CK-2) Rel Index 18.6 Troponin I 0.074 H* (0.000-0.034) ng/mL NT-Pro-B Natriuret Pep pg/mL Total Protein 5.5 L (6.3-8.2) g/dL Albumin 2.5 L (3.5-5.0) g/dL 01/24/17 01/24/17 Range/Units 10:00 10:00 WBC (3.8-10.6) k/uL RBC (4.30-5.90) m/uL Hgb (13.0-17.5) gm/dL Hct (39.0-53.0) % MCV (80.0-100.0) fL MCH (25.0-35.0) pg MCHC (31.0-37.0) g/dL RDW (11.5-15.5) % Plt Count (150-450) k/uL Neutrophils % % Lymphocytes % % Monocytes % % Eosinophils % % Basophils % % Neutrophils # (1.3-7.7) k/uL Lymphocytes # (1.0-4.8) k/uL Monocytes # (0-1.0) k/uL Eosinophils # (0-0.7) k/uL Basophils # (0-0.2) k/uL Hypochromasia Anisocytosis PT 14.8 H (9.0-12.0) sec INR 1.5 H (<1.2) APTT 29.5 (22.0-30.0) sec Sodium (137-145) mmol/L Potassium (3.5-5.1) mmol/L Chloride (98-107) mmol/L Carbon Dioxide (22-30) mmol/L Anion Gap mmol/L BUN (9-20) mg/dL Creatinine (0.66-1.25) mg/dL Est GFR (MDRD) Af Amer (>60 ml/min/1.73 sqM) Est GFR (MDRD) Non-Af (>60 ml/min/1.73 sqM) Glucose (74-99) mg/dL Calcium (8.4-10.2) mg/dL Magnesium (1.6-2.3) mg/dL Total Bilirubin (0.2-1.3) mg/dL AST (17-59) U/L ALT (21-72) U/L Alkaline Phosphatase (38-126) U/L Total Creatine Kinase (55-170) U/L CK-MB (CK-2) (0.0-2.4) ng/mL CK-MB (CK-2) Rel Index Troponin I (0.000-0.034) ng/mL NT-Pro-B Natriuret Pep 21849 pg/mL Total Protein (6.3-8.2) g/dL Albumin (3.5-5.0) g/dL - EKG Data -: EKG Interpreted by Me EKG shows normal: sinus rhythm (Sinus rhythm a 73. Interval 144 QRS 100 QT since QTC of 426/469 possible left atrial enlargement evidence of a possible ventricular conduction delay in the right and normal QRS-T angle) - Radiology Data Radiology results: report reviewed (I did review the imaging and reports the left lung field is opacified), image reviewed Critical Care Time Critical Care Time: Yes Critical Care Time: 39 minutes of critical care time which includes initial monitoring of the EMS run and discussed with paramedics history physical labs on the patient. This did also include a Lisset protocol did not include intubation time. This did include multiple phone calls to multiple physicians including the medical payment poster's office. Also includes documentation the above. Disposition Clinical Impression: Sudden cardiac , Asystole, Congestive heart failure (CHF), End stage renal disease on dialysis, Noncompliance Disposition: Referrals: Dex Valverde MD [Primary Care Provider] - 1-2 days Preliminary Cause of : Sudden cardiac , asystole, congestive heart failure, renal failure
[2017-01-24 09:51] VITALS: TEMP 97
--- NOTE | 2017-01-24 10:19 | XR ---
EXAMINATION TYPE: XR chest 1V DATE OF EXAM: 01/24/2017 HISTORY: difficulty breathing. REFERENCE: Previous study dated 01/15/2017. FINDINGS: A large-bore, double-lumen catheter remains in place via a right internal jugular approach. Its tip is in the superior vena cava. There has developed increased volume loss in the left chest with complete opacification of the left h emithorax and elevation of the left hemidiaphragm. Right lung is clear. Heart size is obscured. IMPRESSION: THERE IS NOW DEVELOPED COMPLETE OPACIFICATION OF THE LEFT HEMITHORAX.
[2017-01-24 10:26] LABS: Anisocytosis Slight; Basophils # (A) 0.1 k/uL (0-0.2); Basophils % (A) 1 %; CH 28.8; CHCM 30.2; Eosinophils # (A) 0.3 k/uL (0-0.7); Eosinophils % (A) 2 %; HCT 23.2 % (39.0-53.0); HDW 2.94; HGB 7.1 gm/dL (13.0-17.5); Hypochromasia Marked; Luc # (Auto) 0.21; Luc % (Auto) 2; Lymphocytes # (A) 0.5 k/uL (1.0-4.8); Lymphocytes % (A) 3 %; MCH 29.4 pg (25.0-35.0); MCHC 30.5 g/dL (31.0-37.0); MCV 96.4 fL (80.0-100.0); Mean Platelet Volume 7.4; Monocytes # (A) 0.9 k/uL (0-1.0); Monocytes % (A) 7 %; Neutrophils # (A) 11.8 k/uL (1.3-7.7); Neutrophils % (A) 86 %; RDW 16.7 % (11.5-15.5); WBC 13.8 k/uL (3.8-10.6); WBC (Perox) 15.04
[2017-01-24 10:27] LABS: INR 1.5 (<1.2); Prothrombin Time 14.8 sec (9.0-12.0)
[2017-01-24 10:28] LABS: Partial Thromboplastin Time 29.5 sec (22.0-30.0)
[2017-01-24 10:32] LABS: Calcium 8.8 mg/dL (8.4-10.2); Magnesium 1.8 mg/dL (1.6-2.3); Potassium 5.7 mmol/L (3.5-5.1); Total Bilirubin 1.9 mg/dL (0.2-1.3); Total Protein 5.5 g/dL (6.3-8.2)
[2017-01-24 10:59] VITALS: RESP 16
[2017-01-24 11:04] LABS: Creatine Kinase MB 6.5 ng/mL (0.0-2.4); Troponin I 0.074 ng/mL (0.000-0.034)
[2017-01-24] MEDS ORDERED: MAGNESIUM SULFATE SYG 4.06 MEQ/ML SYRINGE ONE (13:15)
[2017-01-24] MEDS ORDERED: EPINEPHrine 10 ML SYRINGE (0.1 MG/ML) ONE (13:15)
[2017-01-24] MEDS ORDERED: CALCIUM CHLORIDE 100 MG/ML 10 ML SYRINGE ONE (13:15)
[2017-01-24 14:25] VITALS: BP 131/65; PULSE 70
== END 2017-01-24 17:48 | disposition expired ==
LOC: EC 09:44
DX: I46.9 Cardiac arrest, cause unspecified (principal); I13.2 Hypertensive heart and chronic kidney disease with heart failure and with stage 5 chronic kidney disease, or end stage renal disease; I50.9 Heart failure, unspecified; N18.6 End stage renal disease; K21.9 Gastro-esophageal reflux disease without esophagitis; E03.9 Hypothyroidism, unspecified; J44.9 Chronic obstructive pulmonary disease, unspecified; E11.9 Type 2 diabetes mellitus without complications; F17.200 Nicotine dependence, unspecified, uncomplicated; Z99.2 Dependence on renal dialysis; Z91.19 Patient's noncompliance with other medical treatment and regimen; Z79.4 Long term (current) use of insulin; Z79.51 Long term (current) use of inhaled steroids; Z79.899 Other long term (current) drug therapy; Z88.8 Allergy status to other drugs, medicaments and biological substances; Z91.040 Latex allergy status; Z88.6 Allergy status to analgesic agent
CPT/HCPCS: 36415; 94640; 93005; 83880; 80053; 82550; 82553; 83735; 84484; 85025; 85610; 85730; 87040; 71010; 99291; 31500; 92950; 96374; J1940; J3475; J0171; 90935